=== PATIENT | male | born 1945 | race Caucasian/White ===

== ENCOUNTER 2017-12-06 22:31 | Emergency (ER) | payer MEDICAID, MEDICARE ==
[2016-04-21 13:01] VITALS: Ht 170.2 cm; Wt 99.8 kg
[~2017-12-06] VITALS: Ht 170.2 cm; Wt 99.8 kg
--- NOTE | 2017-12-06 22:36 | ER Report ---
History and Physical Time Seen By MD: 22:36 HPI/ROS CHIEF COMPLAINT: Chest pain, headache HISTORY OF PRESENT ILLNESS: This is a 72-year-old male. He came to the ER tonight by ambulance having chest pain. Sudden onset about 2 hours prior to arrival. Sharp on the right side worse with deep breaths. He has a mild cough but always does and this does not seem worse and is not productive. He has no runny nose or sore throat. He does have a headache as well. Headache onset was about the same time as the chest pain. EMS did provide aspirin and nitroglycerin which did not help the chest pain but it did not make the headache worse. He is currently rating the chest pain an 8 on a 1-10 scale. He is not short of breath with it. He rates the headache a 10 on a 1-10 scale. Throbbing quality. No fevers or chills with all of this. Denies any problems with nausea, vomiting, bowel or bladder problems, diarrhea. He is not dizzy. He has normal vision. Allergies: Coded Allergies: naproxen (Verified Allergy, Severe, CHEST PAIN, RASH, 12/06/17) Penicillins (Verified Allergy, Mild, ITCHING, 12/06/17) Home Meds Active Scripts Hydrocodone Bit/Acetaminophen (HYDROCODON-ACETAMINOPHEN 5-325) 1 Each Tablet, 1 EACH PO Q4H Y for PAIN, #12 TAB 0 Refills Prov:JAMEY VILLASENOR MD 12/07/17 Methylprednisolone (METHYLPREDNISOLONE) 4 Mg Tab.ds.pk, 4 MG PO DIRECTED, #1 PACK 0 Refills Prov:JAMEY VILLASENOR MD 12/07/17 Simethicone (SIMETHICONE) 80 Mg Tab.chew, 80 MG PO QID for 7 Days, #28 TAB.CHEW Prov:FREDDY GATICA MD 05/21/17 Reported Medications Acetaminophen (TYLENOL EXTRA STRENGTH) 500 Mg Tablet, 1 TAB PO TID Y for PAIN, TAB 04/10/17 Lisinopril (LISINOPRIL) 2.5 Mg Tablet, 1 TAB PO QDAY 04/10/17 Insulin Detemir (Levemir Flextouch) 100 Unit/1 Ml Insuln.pen, 54 UNITS SUBQ BID 04/10/17 Cholecalciferol (Vitamin D3) (VITAMIN D) 10,000 Unit Capsule, 1 CAP PO DAILY, CAPSULE 04/10/17 Potassium Chloride (POTASSIUM CHLORIDE) 10 Meq Capsule.er, 1 CAP PO DAILY Y for DIARRHEA 04/10/17 Ferrous Sulfate, Dried (IRON) Unknown Strength Tablet.er, 65 MG PO BID 04/10/17 [place]-3 Fatty Acids/Fish Oil (FISH OIL 1,000 MG SOFTGEL) 1 Each Capsule, 1 EACH PO BID, CAPSULE 04/10/17 [place], Insulin Disposable (Bd Ultra-Fine Pen Needle) 1 Each Dis.needle, EACH 5XD, #100 04/10/17 Albuterol Sulfate 0.083% (ALBUTEROL SULFATE 0.083%) 2.5 Mg/3 Ml Vial.neb, 2.5 MG INH Q8H Y for WHEEZING, INH 04/10/17 Multivitamin (MEN'S MULTI-VITAMIN) 1 Each Tablet, 1 EACH PO DAILY 04/10/17 Allopurinol (ZYLOPRIM) 300 Mg Tablet, 1 TAB PO QDAY, TAB 04/10/17 Insulin Lispro (Humalog Kwikpen) 200 Unit/1 Ml Insuln.pen, 20 UNIT SQ TIDAC, #6 02/28/16 Albuterol Sulfate (Proventil Hfa) 6.7 Gm Aer.w.adap, 2 PUFF INH Q4H Y for WHEEZING, 0 Refills 09/07/11 Discontinued Reported Medications Clotrimazole/Betamethasone Dip (LOTRISONE CREAM) 15 Gm Cream..g., 0.5 TP BID 0.5% apply bid topically to feet 04/10/17 Atorvastatin Calcium (LIPITOR) 10 Mg Tablet, 1 TAB PO QDAY, TAB 04/10/17 Nitroglycerin (NITROSTAT) 0.4 Mg Subl, 0.4 MG SL Q5MIN, #30 07/06/13 Discontinued Scripts Hydrocodone Bit/Acetaminophen (HYDROCODON-ACETAMINOPHEN 5-325) 1 Each Tablet, 1 EACH PO Q6H Y for PAIN, #15 TAB 0 Refills Prov:JAMEY VILLASENOR MD 08/23/17 Prednisone (PREDNISONE) 20 Mg Tablet, 60 MG PO QDAY, #15 TAB 0 Refills Prov:JAMEY VILLASENOR MD 08/23/17 Azithromycin (ZITHROMAX) 250 Mg Tablet, 0 PO QDAY, #6 TAB 0 Refills Take 2 tablets today, then 1 daily for 4 days. Prov:JAMEY VILLASENOR MD 08/23/17 Esomeprazole Magnesium (NEXIUM) 40 Mg Capsule.dr, 1 CAP PO QDAY, #30 CAP 5 Refills Prov:KIKI CORMIER MD 06/17/17 Oxycodone Hcl/Acetaminophen (PERCOCET 5-325 MG TABLET) 1 Each Tablet, 1 EACH PO Q4-6H Y for PAIN, #6 TAB Prov:DAVIS QUAN LEGAL CLERK 04/07/17 Reviewed Nurses Notes: Yes Hx Smoking: No (1PPDX 30 YEARS- QUIT 2000) Smoking Status: Former Smoker Exposure to Second Hand Smoke?: No Hx Substance Use Disorder: No Hx Alcohol Use: No Constitutional Vital Sign - Last 24 Hours 12/06/17 12/06/17 12/06/17 12/06/17 22:37 22:38 22:46 23:00 Temp 98.6 Pulse 66 Resp 22 B/P (MAP) 171/77 (108) 171/77 139/68 (91) Pulse Ox 93 O2 Delivery Nasal Cannula O2 Flow Rate 3.0 12/06/17 12/06/17 12/06/17 12/06/17 23:01 23:14 23:15 23:45 Pulse 69 64 58 Resp 20 20 21 Pulse Ox 94 93 96 O2 Delivery Nasal Cannula O2 Flow Rate 3 12/07/17 12/07/17 12/07/17 12/07/17 00:00 00:15 00:30 00:45 Pulse 66 57 Resp 20 16 18 B/P (MAP) 126/62 (83) 133/69 (90) Pulse Ox 96 93 95 94 12/07/17 12/07/17 12/07/17 12/07/17 01:00 01:30 01:45 02:00 Pulse 65 67 67 Resp 17 18 17 19 B/P (MAP) 135/57 (83) 146/75 (98) 154/71 (98) Pulse Ox 94 100 98 97 12/07/17 12/07/17 02:15 02:33 Pulse 69 89 Resp 9 14 B/P (MAP) 153/70 (97) Pulse Ox 94 93 O2 Delivery Room Air Physical Exam General Appearance: The patient is alert. Acute distress because of the pain. Eyes: Pupils are equal, round. Reactive to light. No pallor, injection or icterus. Extraocular movements are intact. ENT: Mucous membranes are moist. Normal oral mucosa. Posterior oropharynx is normal. Normal tympanic membranes and canals. Neck: Supple and non tender. No lymphadenopathy. Respiratory: Breathing easily and unlabored. Lungs are clear to auscultation. Cardiovascular: Regular rate and rhythm. No murmurs, gallops or rubs. Normal capillary refill. Gastrointestinal: Abdomen is soft and non tender. Nondistended. Normal active bowel sounds. Neurological: Alert and oriented x3. Cranial nerves II through XII show no acute deficits on my exam. No focal neurologic deficits in the extremities. Skin: Warm and dry. No rashes. Musculoskeletal: Extremities are nontender. Full range of motion. No tenderness in palpation of the cervical, thoracic and lumbar spine. DIFFERENTIAL DIAGNOSIS: After history and physical exam, differential diagnosis was considered for chest pain including but not limited to myocardial ischemia, pericarditis pulmonary embolus, chest wall pain, pleural inflammation and pulmonary infectious causes. Also with headache Medical Decision Making Data Points Result Diagram: 12/06/17224212/06/173 Laboratory Hematology Test 12/06/17 22:43 Red Blood Count 4.74 M/uL (4.00-5.60) Mean Corpuscular Volume 90.6 fL (80.0-96.0) Mean Corpuscular Hemoglobin 30.5 pg (26.0-33.0) Mean Corpuscular Hemoglobin Concent 33.7 g/dL (32.0-36.0) Red Cell Distribution Width 14.0 % (11.5-14.5) Mean Platelet Volume 8.3 fL (7.2-11.1) Neutrophils (%) (Auto) 74.2 % (39.4-72.5) Lymphocytes (%) (Auto) 14.9 % (17.6-49.6) Monocytes (%) (Auto) 8.9 % (4.1-12.4) Eosinophils (%) (Auto) 1.3 % (0.4-6.7) Basophils (%) (Auto) 0.7 % (0.3-1.4) Nucleated RBC Relative Count (auto) 0.0 /100WBC Neutrophils # (Auto) 7.7 K/uL (2.0-7.4) Lymphocytes # (Auto) 1.5 K/uL (1.3-3.6) Monocytes # (Auto) 0.9 K/uL (0.3-1.0) Eosinophils # (Auto) 0.1 K/uL (0.0-0.5) Basophils # (Auto) 0.1 K/uL (0.0-0.1) Nucleated RBC Absolute Count (auto) 0.00 K/uL D-Dimer Quantitative (PE/DVT) < 0.27 ug/ml (0-0.50) Sodium Level 134 mmol/L (137-145) Potassium Level 3.7 mmol/L (3.5-5.0) Chloride Level 100 mmol/L (98-107) Carbon Dioxide Level 21 mmol/L (22-30) Blood Urea Nitrogen 18 mg/dl (9-21) Creatinine 0.80 mg/dl (0.66-1.25) Glomerular Filtration Rate Calc > 60.0 Random Glucose 261 mg/dl (75-110) Calcium Level 8.2 mg/dl (8.4-10.2) Total Bilirubin 0.3 mg/dl (0.2-1.3) Aspartate Amino Transf (AST/SGOT) 21 U/L (0-35) Alanine Aminotransferase (ALT/SGPT) 31 U/L (0-56) Alkaline Phosphatase 88 U/L (0-126) Troponin I < 0.012 ng/ml B-Type Natriuretic Peptide 35 pg/ml (0-100) Total Protein 6.6 gm/dl (6.3-8.2) Albumin 3.7 g/dl (3.5-5.0) Chemistry Test 12/06/17 22:43 White Blood Count 10.4 k/uL (4.5-11.0) Red Blood Count 4.74 M/uL (4.00-5.60) Hemoglobin 14.5 g/dL (14.0-18.0) Hematocrit 43.0 % (42.0-52.0) Mean Corpuscular Volume 90.6 fL (80.0-96.0) Mean Corpuscular Hemoglobin 30.5 pg (26.0-33.0) Mean Corpuscular Hemoglobin Concent 33.7 g/dL (32.0-36.0) Red Cell Distribution Width 14.0 % (11.5-14.5) Platelet Count 276 K/uL (150-450) Mean Platelet Volume 8.3 fL (7.2-11.1) Neutrophils (%) (Auto) 74.2 % (39.4-72.5) Lymphocytes (%) (Auto) 14.9 % (17.6-49.6) Monocytes (%) (Auto) 8.9 % (4.1-12.4) Eosinophils (%) (Auto) 1.3 % (0.4-6.7) Basophils (%) (Auto) 0.7 % (0.3-1.4) Nucleated RBC Relative Count (auto) 0.0 /100WBC Neutrophils # (Auto) 7.7 K/uL (2.0-7.4) Lymphocytes # (Auto) 1.5 K/uL (1.3-3.6) Monocytes # (Auto) 0.9 K/uL (0.3-1.0) Eosinophils # (Auto) 0.1 K/uL (0.0-0.5) Basophils # (Auto) 0.1 K/uL (0.0-0.1) Nucleated RBC Absolute Count (auto) 0.00 K/uL D-Dimer Quantitative (PE/DVT) < 0.27 ug/ml (0-0.50) Glomerular Filtration Rate Calc > 60.0 Calcium Level 8.2 mg/dl (8.4-10.2) Total Bilirubin 0.3 mg/dl (0.2-1.3) Aspartate Amino Transf (AST/SGOT) 21 U/L (0-35) Alanine Aminotransferase (ALT/SGPT) 31 U/L (0-56) Alkaline Phosphatase 88 U/L (0-126) Troponin I < 0.012 ng/ml B-Type Natriuretic Peptide 35 pg/ml (0-100) Total Protein 6.6 gm/dl (6.3-8.2) Albumin 3.7 g/dl (3.5-5.0) Coagulation Test 12/06/17 22:43 D-Dimer Quantitative (PE/DVT) < 0.27 ug/ml EKG/Imaging EKG Interpretation 12 lead EKG: Rhythm: normal sinus rhythm, rate 76 [place]: normal QRS: normal ST segments: No ST elevation or depression noted, nonspecific T-wave flattening Imaging CHEST PA AND LAT HISTORY: Chest pain. COMPARISON: 09/02/2017 and studies dating to 01/13/2008. TECHNIQUE: PA and lateral views of the chest. FINDINGS: Pulmonary: Lungs are clear. There is no pneumothorax or pleural effusion. 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 Cardiomediastinal: Cardiac and mediastinal silhouettes are within normal limits. There is mild to moderate aortic calcification. Bones/soft tissues: No acute osseous abnormality. There are several healed left- sided rib fractures. There is moderate degenerative change of the spine. There is stable wedging of several mid to lower thoracic vertebral bodies. The visible abdomen is normal. IMPRESSION: 1. No acute cardiopulmonary process. Report Dictated By: Leola Donnelly at 12/06/2017 11:48 PM ED Course/Re-evaluation Clinical Indication for ER IV: Hydration, IV Access ED Course Negative EKG and chest x-ray. Troponin negative. The patient still had headache but his chest pain was gone after morphine and Zofran. Gave Phenergan, Solu- Medrol, and 500 cc of fluid. Metabolic panel did show a slight increased BUN to creatinine ratio but we wanted to be careful because of history of heart disease and congestive heart failure. He felt much better with the medicine and his headache is down to a 4 on a 1-10 scale rather than 10. He is feeling much better and was discharged home. Decision to Disposition Date: Dec 07, 2017 Decision to Disposition Time: 02:24 Depart Departure Latest Vital Signs Vital Signs Date Time Temp Pulse Resp B/P (MAP) Pulse Ox O2 Delivery O2 Flow Rate FiO2 12/07/17 02:33 89 14 153/70 (97) 93 Room Air 12/06/17 23:14 3 12/06/17 22:38 98.6 Impression: Primary Impression: Non-cardiac chest pain Additional Impression: Headache Condition: Improved Disposition: HOME OR SELF-CARE Referrals: JOSELUIS REYNOLDSP (PCP) New Scripts Hydrocodone Bit/Acetaminophen (HYDROCODON-ACETAMINOPHEN 5-325) 1 Each Tablet 1 EACH PO Q4H Y for PAIN, #12 TAB 0 Refills Prov: JAMEY VILLASENOR MD 12/07/17 Methylprednisolone (METHYLPREDNISOLONE) 4 Mg Tab.ds.pk 4 MG PO DIRECTED, #1 PACK 0 Refills Prov: JAMEY VILLASENOR MD 12/07/17 Patient Instructions: Acute Headache (ED), Chest Pain (ED) Additional Instructions: Rest and increase fluid intake. Medrol dosepack over the next 6 days. Lortab 5/325, one every 4 hours as needed for pain. Problem Qualifiers Additional Impression: Headache Headache type: unspecified Headache chronicity pattern: acute headache Intractability: not intractable Qualified Codes: R51 - Headache JAMEY VILLASENOR MD Dec 06, 2017 22:36
[2017-12-06] MEDS ORDERED: MORPHINE 4 MG/ML SDV IVP ONE (23:20)
[2017-12-06] MEDS ORDERED: ONDANSETRON 4 MG/2 ML VIAL IVP ONE (23:20)
[2017-12-06 23:32] LABS: PLATELET COUNT, AUTOMATED 276 K/uL (150-450)
--- NOTE | 2017-12-06 23:58 | RADIOLOGY IMAGING REPORT ---
FACILITY: [facility] - [place] PATIENT NAME: Nomi Whiting : 1945 MR: [id number] V: [id number] EXAM DATE: ORDERING PHYSICIAN: JAMEY VILLASENOR TECHNOLOGIST: Location: [facility] - [place] Patient: Nomi Whiting : 1945 Visit/Account:[id number] Date of Sevice: 12/06/2017 CHEST PA AND LAT HISTORY: Chest pain. COMPARISON: 09/02/2017 and studies dating to 01/13/2008. TECHNIQUE: PA and lateral views of the chest. FINDINGS: Pulmonary: Lungs are clear. There is no pneumothorax or pleural effusion. 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 Cardiomediastinal: Cardiac and mediastinal silhouettes are within normal limits. There is mild to mod erate aortic calcification. Bones/soft tissues: No acute osseous abnormality. There are several healed left-sided rib fractures. There is moderate degenerative change of the spine. There is stable wedging of several mid to lower t horacic vertebral bodies. The visible abdomen is normal. IMPRESSION: 1. No acute cardiopulmonary process. Report Dictated By: Leola Donnelly at 12/06/2017 11:48 PM Report E-Signed By: Leola Donnelly at 12/06/2017 11:53 PM [id number]
[2017-12-07] MEDS ORDERED: ACETAMINOPHEN 500 MG TAB PO ONE (00:15)
[2017-12-07] MEDS ORDERED: PROMETHAZINE 25 MG/ML 1 ML AMP IVP ONE (00:15)
[2017-12-07] MEDS ORDERED: methylPREDNIS SUCC 125 MG/2ML IVP ONE (00:15)
[2017-12-07] MEDS ORDERED: NS(*) 0.9% 500 ML BAG 500 ML IV ONE (00:20)
[2017-12-07] MEDS ORDERED: LOR5/325 PO (02:26)
[2017-12-07] MEDS ORDERED: METH4TAB66 PO (02:26)
[2017-12-07 02:33] VITALS: BP 153/70
--- NOTE | 2017-12-07 06:44 | EKG ---
FACILITY: [facility] - [place] PATIENT NAME: BRETT BRADLEY : [id number] MR: [id number] V: [id number] EXAM DATE: ORDERING PHYSICIAN: JAMEY VILLASENOR TECHNOLOGIST: Test Reason : Blood Pressure : / mmHG Vent. Rate : 076 BPM Atrial Rate : 076 BPM P-R Int : 172 ms QRS Dur : 072 ms QT Int : 404 ms P-R-T Axes : 038 062 049 degrees QTc Int : 454 ms Normal sinus rhythm Septal infarct , age undetermined Abnormal ECG Confirmed by CINDY TOBIN ([id number]) on 12/07/2017 6:49:51 AM Referred By: Confirmed By:CINDY TOBIN
== END 2017-12-07 02:38 | disposition home or self-care (01) ==
LOC: ER 22:36
DX: R07.89 Other chest pain (principal); R51 Headache; R94.31 Abnormal electrocardiogram [ECG] [EKG]; I50.9 Heart failure, unspecified
CPT/HCPCS: 36415; 71046; 83880; 84484; 85025; 85379; 93005; 96361; 96374; 96375; 99284; A9270; J2270; J2405; J2550; J2930; J7040; 82040; 82247; 82310; 82374; 82435; 82565; 82947; 84075; 84132; 84155; 84295; 84450; 84460; 84520

== ENCOUNTER → 2017-12-06 | Outpatient (CLI) | payer MEDICARE ==
[2016-04-21 13:01] VITALS: BMI 33.5
[~2017-12-06] MED LIST: ACET500T68 PO; ALB6.7R INH; ALBL PO; ALBU2.5V36 INH; ALL100 PO; ALLO-1 PO; ALLO-119 PO; ALP5 PO; ALPR-434 PO; AMI25 PO; AMIT-106 PO; AMIT-108 PO; AMITRIPTYLINE; ASP325 PO; ASPI-715 PO; ATEN-1 PO; ATOR10TA24 PO; ATOR20TA22 PO; AUG875 PO; AZI250 PO; AZIT-1 PO; BACDS PO; BETA BLOCKER; BIS10S PR; BISA-236 RC; BUTA1CAP36 PO; CALC-488 PO; CEFU250 PO; CEP500 PO; CHOL100062 PO; CHOL400C10 PO; CIP500 PO; CIPR-212 PO; CLIN-1 PO; CLOT15CR62 TP; COL0.6 PO; CYA1000I IM; CYC10 PO; CYCL10TA29 PO; DIA5 PO; DIC10 PO; DICY10CA62 PO; DICY20TA70 PO; DIPH-1 PO; DOC100 PO; DOCU-416 PO; DUONEB; ENA10 PO; ESOM40CA42 PO; ESOM40SU2 PO; FENO48PT PO; FERR159T PO; FERR236T PO; FISH OIL1 CAP PO; GAB300 PO; GEMF600T91 PO; GLY25 PO; GOLYTE PO; HCTZ25 PO; HYDR-2966 PO; HYDR-3078 PO; HYDR-3250 PO; HYDR-385 PO; HYDR-4305 PO; HYDR-4309 PO; HYDR2TAB42 PO; HYDROCHLORO; HYDROCHLOROTHIAZIDE; HYO125 SL; INDO50CA92 PO; INSU100I34 SQ; INSU100I36 SQ; INSU100I5 SUBQ; INSU200I SQ; KET10 PO; LACT10SO58 PO; LEVI SUBQ; LISI-362 PO; LISI2.5T60 PO; LISI5TAB25 PO; LOM PO; LOR5 PO; LOR5/325 PO; LORA-633 PO; MAGN296S6 PO; MET10 PO; MET4 PO; META800T18 PO; METF-409 PO; METH-543 PO; METH4TAB66 PO; METO-1 PO; METO-566 PO; METR-1 PO; METXR500 PO; MON10 PO; MULT-1287 PO; MULT1CAP59 PO; NEBULIZER; NEED-653; NIA500 PO; NIT4 SL; NOVALOG SC; NOVOLOG SQ; NYST15CR32 TP; OLM20 PO; OLME1TAB54 PO; OMEG-11 PO; OMEG-23 PO; OMEG-27 PO; OMEG-36 PO; OMEP-153 PO; OMEP-218 PO; OMEP40CA45 PO; OND4 PO; ONDA4TAB PO; ONDA4TAB97 PO; OXYC-865 PO; OXYC-869 PO; OXYC-870 PO; OXYC1TAB54 PO; OXYG1EAC MC; OXYGEN INH; PAN40 PO; PER PO; POLY17PO25 PO; POTA10CA40 PO; PRE20 PO; PRED20TA6 PO; PROC-35 PO; PROM-110 PO; RAN150 PO; RANI150C14 PO; ROBC PO; SIME80TA65 PO; SIMV-1 PO; SIMV-44 PO; SITA100T9 PO; SUC1 PO; SUCR1TAB51 PO; SUMA50TA34 PO; TADA10TA14 PO; TADA20TA33 PO; TOPI-119 PO; TOPI25CA6 PO; TRA50 PO; TRAM-420 PO; VITA100C13 PO; [UNRECOGNIZED DRUG - OTHER]; dex60pt PO
== END ==
LOC: AMB 22:11
PROVIDERS: ATTEND Nurse Practitioner
DX: R07.89 Other chest pain (principal); R51 Headache; E11.9 Type 2 diabetes mellitus without complications; J44.9 Chronic obstructive pulmonary disease, unspecified; I50.9 Heart failure, unspecified
CPT/HCPCS: A0425; A0427

== ENCOUNTER 2018-01-06 09:15 | Emergency (ER) | payer MEDICARE ==
[2016-04-21 13:01] VITALS: Wt 99.9 kg
[~2018-01-06 09:15] MED LIST changes: -INSU100C14 SQ; -METO-734 PO
--- NOTE | 2018-01-06 09:52 | ER Report ---
History and Physical Time Seen By MD: 09:52 Hx. of Stated Complaint: patient reports getting up this am having a coughing fit and since then has been having a hard time breathing HPI/ROS Cough since this morning. No fever/chills. No chest pain. No SOB. No myalgias. Remainder of the 14 system rev: Yes Allergies: Coded Allergies: naproxen (Verified Allergy, Severe, CHEST PAIN, RASH, 01/06/18) Penicillins (Verified Allergy, Mild, ITCHING, 01/06/18) Home Meds Active Scripts Simethicone (SIMETHICONE) 80 Mg Tab.chew, 80 MG PO QID for 7 Days, #28 TAB.CHEW Prov:FREDDY GATICA MD 05/21/17 Reported Medications Acetaminophen (TYLENOL EXTRA STRENGTH) 500 Mg Tablet, 1 TAB PO TID Y for PAIN, TAB 04/10/17 Lisinopril (LISINOPRIL) 2.5 Mg Tablet, 1 TAB PO QDAY 04/10/17 Insulin Detemir (Levemir Flextouch) 100 Unit/1 Ml Insuln.pen, 54 UNITS SUBQ BID 04/10/17 Cholecalciferol (Vitamin D3) (VITAMIN D) 10,000 Unit Capsule, 1 CAP PO DAILY, CAPSULE 04/10/17 Potassium Chloride (POTASSIUM CHLORIDE) 10 Meq Capsule.er, 1 CAP PO DAILY Y for DIARRHEA 04/10/17 Ferrous Sulfate, Dried (IRON) Unknown Strength Tablet.er, 65 MG PO BID 04/10/17 [place]-3 Fatty Acids/Fish Oil (FISH OIL 1,000 MG SOFTGEL) 1 Each Capsule, 1 EACH PO BID, CAPSULE 04/10/17 [place], Insulin Disposable (Bd Ultra-Fine Pen Needle) 1 Each Dis.needle, EACH 5XD, #100 04/10/17 Albuterol Sulfate 0.083% (ALBUTEROL SULFATE 0.083%) 2.5 Mg/3 Ml Vial.neb, 2.5 MG INH Q8H Y for WHEEZING, INH 04/10/17 Multivitamin (MEN'S MULTI-VITAMIN) 1 Each Tablet, 1 EACH PO DAILY 04/10/17 Allopurinol (ZYLOPRIM) 300 Mg Tablet, 1 TAB PO QDAY, TAB 04/10/17 Insulin Lispro (Humalog Kwikpen) 200 Unit/1 Ml Insuln.pen, 20 UNIT SQ TIDAC, #6 02/28/16 Albuterol Sulfate (Proventil Hfa) 6.7 Gm Aer.w.adap, 2 PUFF INH Q4H Y for WHEEZING, 0 Refills 09/07/11 Discontinued Scripts Hydrocodone Bit/Acetaminophen (HYDROCODON-ACETAMINOPHEN 5-325) 1 Each Tablet, 1 EACH PO Q4H Y for PAIN, #12 TAB 0 Refills Prov:JAMEY VILLASENOR MD 12/07/17 Methylprednisolone (METHYLPREDNISOLONE) 4 Mg Tab.ds.pk, 4 MG PO DIRECTED, #1 PACK 0 Refills Prov:JAMEY VILLASENOR MD 12/07/17 Reviewed Nurses Notes: Yes Old Medical Records Reviewed: Yes Hx Smoking: No (1PPDX 30 YEARS- QUIT 2000) Smoking Status: Former Smoker Exposure to Second Hand Smoke?: No Hx Substance Use Disorder: No Hx Alcohol Use: No Constitutional Vital Sign - Last 24 Hours 01/06/18 01/06/18 01/06/18 01/06/18 09:17 09:19 09:45 10:00 Temp 98.2 Pulse 78 76 Resp 16 B/P (MAP) 157/89 (111) 157/89 160/89 (112) Pulse Ox 92 90 O2 Delivery Room Air 01/06/18 01/06/18 01/06/18 01/06/18 10:04 10:04 10:05 10:09 Pulse 76 76 86 Resp 22 20 Pulse Ox 90 90 O2 Delivery Room Air 01/06/18 01/06/18 01/06/18 01/06/18 10:20 10:30 10:35 11:00 Pulse 72 Resp 20 B/P (MAP) 157/65 (95) 159/70 (99) Pulse Ox 92 O2 Flow Rate 2.0 01/06/18 01/06/18 11:30 12:00 B/P (MAP) 160/75 (103) 167/77 (107) Physical Exam General Appearance: The patient is alert, has no immediate need for airway protection and no current signs of toxicity. Eyes: Pupils equal and round no injection. Respiratory: Chest is non tender, lungs are clear to auscultation. Cardiac: regular rate and rhythm Gastrointestinal: Abdomen is soft and non tender, no masses, bowel sounds normal. Extremities have full range of motion and are non tender. Skin: No rashes or lesions. DIFFERENTIAL DIAGNOSIS: After history and physical exam differential diagnosis was considered for shortness of breath including but not limited to pulmonary infectious process, COPD, asthma, pulmonary embolus and congestive heart failure. Medical Decision Making Data Points Result Diagram: 01/06/18 0930 01/06/18 0930 Laboratory Hematology Test 01/06/18 09:30 Red Blood Count 5.02 M/uL (4.00-5.60) Mean Corpuscular Volume 88.9 fL (80.0-96.0) Mean Corpuscular Hemoglobin 30.4 pg (26.0-33.0) Mean Corpuscular Hemoglobin Concent 34.1 g/dL (32.0-36.0) Red Cell Distribution Width 14.3 % (11.5-14.5) Mean Platelet Volume 7.9 fL (7.2-11.1) Neutrophils (%) (Auto) 70.8 % (39.4-72.5) Lymphocytes (%) (Auto) 15.0 % (17.6-49.6) Monocytes (%) (Auto) 12.1 % (4.1-12.4) Eosinophils (%) (Auto) 1.5 % (0.4-6.7) Basophils (%) (Auto) 0.6 % (0.3-1.4) Nucleated RBC Relative Count (auto) 0.1 /100WBC Neutrophils # (Auto) 6.1 K/uL (2.0-7.4) Lymphocytes # (Auto) 1.3 K/uL (1.3-3.6) Monocytes # (Auto) 1.0 K/uL (0.3-1.0) Eosinophils # (Auto) 0.1 K/uL (0.0-0.5) Basophils # (Auto) 0.1 K/uL (0.0-0.1) Nucleated RBC Absolute Count (auto) 0.01 K/uL Sodium Level 138 mmol/L (137-145) Potassium Level 4.0 mmol/L (3.5-5.0) Chloride Level 101 mmol/L (98-107) Carbon Dioxide Level 24 mmol/L (22-30) Blood Urea Nitrogen 11 mg/dl (9-21) Creatinine 0.90 mg/dl (0.66-1.25) Glomerular Filtration Rate Calc > 60.0 Random Glucose 101 mg/dl (75-110) Calcium Level 8.7 mg/dl (8.4-10.2) Total Bilirubin 0.4 mg/dl (0.2-1.3) Aspartate Amino Transf (AST/SGOT) 21 U/L (0-35) Alanine Aminotransferase (ALT/SGPT) 31 U/L (0-56) Alkaline Phosphatase 84 U/L (0-126) Total Protein 7.0 gm/dl (6.3-8.2) Albumin 3.9 g/dl (3.5-5.0) Chemistry Test 01/06/18 09:30 White Blood Count 8.6 k/uL (4.5-11.0) Red Blood Count 5.02 M/uL (4.00-5.60) Hemoglobin 15.2 g/dL (14.0-18.0) Hematocrit 44.6 % (42.0-52.0) Mean Corpuscular Volume 88.9 fL (80.0-96.0) Mean Corpuscular Hemoglobin 30.4 pg (26.0-33.0) Mean Corpuscular Hemoglobin Concent 34.1 g/dL (32.0-36.0) Red Cell Distribution Width 14.3 % (11.5-14.5) Platelet Count 279 K/uL (150-450) Mean Platelet Volume 7.9 fL (7.2-11.1) Neutrophils (%) (Auto) 70.8 % (39.4-72.5) Lymphocytes (%) (Auto) 15.0 % (17.6-49.6) Monocytes (%) (Auto) 12.1 % (4.1-12.4) Eosinophils (%) (Auto) 1.5 % (0.4-6.7) Basophils (%) (Auto) 0.6 % (0.3-1.4) Nucleated RBC Relative Count (auto) 0.1 /100WBC Neutrophils # (Auto) 6.1 K/uL (2.0-7.4) Lymphocytes # (Auto) 1.3 K/uL (1.3-3.6) Monocytes # (Auto) 1.0 K/uL (0.3-1.0) Eosinophils # (Auto) 0.1 K/uL (0.0-0.5) Basophils # (Auto) 0.1 K/uL (0.0-0.1) Nucleated RBC Absolute Count (auto) 0.01 K/uL Glomerular Filtration Rate Calc > 60.0 Calcium Level 8.7 mg/dl (8.4-10.2) Total Bilirubin 0.4 mg/dl (0.2-1.3) Aspartate Amino Transf (AST/SGOT) 21 U/L (0-35) Alanine Aminotransferase (ALT/SGPT) 31 U/L (0-56) Alkaline Phosphatase 84 U/L (0-126) Total Protein 7.0 gm/dl (6.3-8.2) Albumin 3.9 g/dl (3.5-5.0) EKG/Imaging Imaging X-ray: CXR was obtained. I viewed the images myself on the PACS system. My interpretation of the images is: No pulmonary edema, no infiltrates. The radiologist interpretation had no clinically significant variation from this interpretation. ED Course/Re-evaluation ED Course 72-year-old male presents to the emergency department with hours of a cough. No fever or chills, no chest pain, no tachypnea. Labs and chest x-ray are both within normal limits. The patient appears well. I do not think this represents pneumonia, ACS, PE, CHF. He was given a nebulizer treatment with improvement of his cough. He was also given one dose of Mucinex which I encouraged him to continue. The patient has no wheezing and will therefore not be placed on a course of steroids. I think he has an early viral upper respiratory infection and was encouraged to follow up with his primary care physician. Decision to Disposition Date: Jan 06, 2018 Decision to Disposition Time: 12:50 Depart Departure Latest Vital Signs Vital Signs Date Time Temp Pulse Resp B/P (MAP) Pulse Ox O2 Delivery O2 Flow Rate FiO2 01/06/18 12:00 167/77 (107) 01/06/18 10:35 72 20 92 01/06/18 10:20 2.0 01/06/18 10:04 Room Air 01/06/18 09:19 98.2 Impression: Primary Impression: Cough Condition: Improved Disposition: HOME OR SELF-CARE Referrals: JOSELUIS REYNOLDS (PCP) Patient Instructions: Acute Cough (ED) CHELSEY ROMERO MD Jan 06, 2018 09:52
[2018-01-06] MEDS ORDERED: ALBUTEROL/IPRATROPIUM 3 ML NEB NEB ONE (09:55)
[2018-01-06 10:04] LABS: PLATELET COUNT, AUTOMATED 279 K/uL (150-450)
--- NOTE | 2018-01-06 10:36 | RADIOLOGY IMAGING REPORT ---
FACILITY: [facility] - [place] PATIENT NAME: Nomi Whiting : 1945 MR: [id number] V: [id number] EXAM DATE: ORDERING PHYSICIAN: CHELSEY ROMERO TECHNOLOGIST: Location: [facility] - [place] Patient: Nomi Whiting : 1945 Visit/Account:[id number] Date of Sevice: 01/06/2018 Technique: CHEST PA AND LAT HISTORY: cough and sob COMPARISON: Chest radiographs 12/06/2016 Findings: The lungs are clear. No pleural effusion or pneumothorax. The cardiomediastinal silhouett e is unchanged. Impression: 1. No acute cardiopulmonary process. Report Dictated By: Jackson Wagner DO at 01/06/2018 10:30 AM Report E-Signed By: Jackson Wagner DO at 01/06/2018 10:31 AM WSN:[id number]
[2018-01-06 12:00] VITALS: BP 167/77
[2018-01-06] MEDS ORDERED: guaiFENesin 600 MG TABCR PO ONE (12:15)
== END 2018-01-06 12:32 | disposition home or self-care (01) ==
LOC: ER 09:24
DX: R05 Cough (principal)
CPT/HCPCS: 71046; 85025; 94640; 99284; A9270; J7620; 82040; 82247; 82310; 82374; 82435; 82565; 82947; 84075; 84132; 84155; 84295; 84450; 84460; 84520

== ENCOUNTER → 2018-01-06 | Outpatient (CLI) | payer MEDICARE ==
[2016-04-21 13:01] VITALS: BMI 33.5
[~2018-01-06] MED LIST changes: +INSU100C14 SQ; +METO-734 PO
== END ==
LOC: AMB 08:53
PROVIDERS: ATTEND Nurse Practitioner
DX: R06.02 Shortness of breath (principal); R05 Cough
CPT/HCPCS: A0425; A0427

== ENCOUNTER 2018-01-09 10:40 | Emergency (ER) | payer MEDICARE ==
[2016-04-21 13:01] VITALS: Wt 99.9 kg
[~2018-01-09 10:40] MED LIST changes: -INSU100C14 SQ; -METO-734 PO
--- NOTE | 2018-01-09 10:45 | ER Report ---
History and Physical Time Seen By MD: 10:44 HPI/ROS CHIEF COMPLAINT: Right flank pain HISTORY OF PRESENT ILLNESS: Patient was just seen on 01/06/2018 for cough that was felt to be due to bronchospasm. At that time he had a workup which included a chest x-ray and blood work all of which was normal. He is been seen multiple times in the emergency department for acute abdominal pain. Workups have been unremarkable. He was supposed to follow up with gastroenterology in April 2017 but he was unable to make that appointment. Patient presents today with right- sided flank pain which occurred at rest. Pain is described as 8 out of 10 in intensity and associated with nausea. Patient does state that the pain is worse with movement or pushing over the area. He denies fevers or chills. He denies vomiting or diarrhea. He denies any abdominal pain. Denies chest pain or shortness of breath. He denies hematuria. He denies dysuria. REVIEW OF SYSTEMS: Constitutional: No fever, no chills. Eyes: No discharge. ENT: No sore throat. Cardiovascular: No chest pain, no palpitations. Respiratory: No cough, no shortness of breath. Gastrointestinal: No abdominal pain, no vomiting. Patient reports nausea and right flank pain Genitourinary: No hematuria. Musculoskeletal: No back pain. Skin: No rashes. Neurological: No headache. Allergies: Coded Allergies: naproxen (Verified Allergy, Severe, CHEST PAIN, RASH, 01/09/18) Penicillins (Verified Allergy, Mild, ITCHING, 01/09/18) Home Meds Active Scripts Methocarbamol (ROBAXIN-750) 750 Mg Tablet, 1500 MG PO TID for Muscle Relaxant, # 15 TAB 0 Refills Prov:FREDDY GATICA MD 01/09/18 Hydrocodone Bit/Acetaminophen (HYDROCODON-ACETAMINOPHEN 5-325) 1 Each Tablet, 1 EACH PO Q4-6H Y for PAIN, #12 TAB 0 Refills TAKE ONE TABLET BY MOUTH EVERY 4-6 HOURS NEEDED FOR PAIN Prov:FREDDY GATICA MD 01/09/18 Simethicone (SIMETHICONE) 80 Mg Tab.chew, 80 MG PO QID for 7 Days, #28 TAB.CHEW Prov:FREDDY GATICA MD 05/21/17 Reported Medications Acetaminophen (TYLENOL EXTRA STRENGTH) 500 Mg Tablet, 1 TAB PO TID Y for PAIN, TAB 04/10/17 Lisinopril (LISINOPRIL) 2.5 Mg Tablet, 1 TAB PO QDAY 04/10/17 Insulin Detemir (Levemir Flextouch) 100 Unit/1 Ml Insuln.pen, 54 UNITS SUBQ BID 04/10/17 Cholecalciferol (Vitamin D3) (VITAMIN D) 10,000 Unit Capsule, 1 CAP PO DAILY, CAPSULE 04/10/17 Potassium Chloride (POTASSIUM CHLORIDE) 10 Meq Capsule.er, 1 CAP PO DAILY Y for DIARRHEA 04/10/17 Ferrous Sulfate, Dried (IRON) Unknown Strength Tablet.er, 65 MG PO BID 04/10/17 [place]-3 Fatty Acids/Fish Oil (FISH OIL 1,000 MG SOFTGEL) 1 Each Capsule, 1 EACH PO BID, CAPSULE 04/10/17 Avella, Insulin Disposable (Bd Ultra-Fine Pen Needle) 1 Each Dis.needle, EACH 5XD, #100 04/10/17 Albuterol Sulfate 0.083% (ALBUTEROL SULFATE 0.083%) 2.5 Mg/3 Ml Vial.neb, 2.5 MG INH Q8H Y for WHEEZING, INH 04/10/17 Multivitamin (MEN'S MULTI-VITAMIN) 1 Each Tablet, 1 EACH PO DAILY 04/10/17 Allopurinol (ZYLOPRIM) 300 Mg Tablet, 1 TAB PO QDAY, TAB 04/10/17 Insulin Lispro (Humalog Kwikpen) 200 Unit/1 Ml Insuln.pen, 20 UNIT SQ TIDAC, #6 02/28/16 Albuterol Sulfate (Proventil Hfa) 6.7 Gm Aer.w.adap, 2 PUFF INH Q4H Y for WHEEZING, 0 Refills 09/07/11 Discontinued Scripts Hydrocodone Bit/Acetaminophen (HYDROCODON-ACETAMINOPHEN 5-325) 1 Each Tablet, 1 EACH PO Q4H Y for PAIN, #12 TAB 0 Refills Prov:JAMEY VILLASENOR MD 12/07/17 Methylprednisolone (METHYLPREDNISOLONE) 4 Mg Tab.ds.pk, 4 MG PO DIRECTED, #1 PACK 0 Refills Prov:JAMEY VILLASENOR MD 12/07/17 Past Medical/Surgical History Past medical history significant for asthma, insulin requiring diabetes, gout, hypertension, abdominal pain Hx Smoking: No (1PPDX 30 YEARS- QUIT 2000) Smoking Status: Former Smoker Exposure to Second Hand Smoke?: No Hx Substance Use Disorder: No Hx Alcohol Use: No Constitutional Vital Sign - Last 24 Hours 01/09/18 01/09/18 01/09/18 01/09/18 10:40 10:46 10:48 10:55 Temp 98.4 Pulse ??? 105 99 Resp 20 B/P (MAP) 183/91 183/91 (121) Pulse Ox 90 90 O2 Delivery Room Air 01/09/18 01/09/18 01/09/18 01/09/18 11:00 11:10 11:15 11:20 Pulse 96 89 B/P (MAP) 145/119 (128) 150/90 (110) Pulse Ox 92 92 01/09/18 01/09/18 01/09/18 11:30 11:35 11:45 Pulse ??? B/P (MAP) 147/68 (94) 153/68 (96) Physical Exam General Appearance: The patient is alert, has no immediate need for airway protection and no signs of toxicity. [ ] Eyes: Pupils equal and round no pallor or injection. ENT, Mouth: Mucous membranes are moist. Respiratory: There are no retractions, lungs are clear to auscultation. Cardiovascular: Regular rate and rhythm. [ ] Gastrointestinal: Right flank pain; no abdominal pain Neurological: Awake and alert Skin: Warm and dry, no rashes. Musculoskeletal: Neck is supple non tender. Extremities are nontender, nonswollen and have full range of motion. Medical Decision Making Data Points Result Diagram: 01/09/18 1116 01/09/18 1116 Laboratory Hematology Test 01/09/18 10:44 01/09/18 11:16 Urine Color Straw Urine Clarity Clear Urine pH 5.0 pH (4.8-9.5) Urine Specific [place] 1.005 Urine Protein Negative mg/dL (NEGATIVE) Urine Glucose (UA) 500 mg/dL (NEGATIVE) Urine Ketones Negative mg/dL (NEGATIVE) Urine Blood Small (NEGATIVE) Urine Nitrite Negative (NEGATIVE) Urine Bilirubin Negative (NEGATIVE) Urine Urobilinogen Negative mg/dL (0.2-1.9) Urine Leukocyte Esterase Negative (NEGATIVE) Urine RBC <1 /HPF (0-2/HPF) Urine WBC <1 /HPF (0-5/HPF) Urine Squamous Epithelial Cells Few /LPF (</=FEW) Urine Bacteria Negative /HPF (NONE-FEW) Urine Mucus None /HPF (NONE-FEW) Red Blood Count 4.96 M/uL (4.00-5.60) Mean Corpuscular Volume 88.8 fL (80.0-96.0) Mean Corpuscular Hemoglobin 30.6 pg (26.0-33.0) Mean Corpuscular Hemoglobin Concent 34.4 g/dL (32.0-36.0) Red Cell Distribution Width 14.5 % (11.5-14.5) Mean Platelet Volume 8.0 fL (7.2-11.1) Neutrophils (%) (Auto) 73.8 % (39.4-72.5) Lymphocytes (%) (Auto) 13.8 % (17.6-49.6) Monocytes (%) (Auto) 10.4 % (4.1-12.4) Eosinophils (%) (Auto) 1.3 % (0.4-6.7) Basophils (%) (Auto) 0.7 % (0.3-1.4) Nucleated RBC Relative Count (auto) 0.0 /100WBC Neutrophils # (Auto) 7.3 K/uL (2.0-7.4) Lymphocytes # (Auto) 1.4 K/uL (1.3-3.6) Monocytes # (Auto) 1.0 K/uL (0.3-1.0) Eosinophils # (Auto) 0.1 K/uL (0.0-0.5) Basophils # (Auto) 0.1 K/uL (0.0-0.1) Nucleated RBC Absolute Count (auto) 0.00 K/uL Peripheral Blood Smear No Y/N Sodium Level 137 mmol/L (137-145) Potassium Level 3.9 mmol/L (3.5-5.0) Chloride Level 101 mmol/L (98-107) Carbon Dioxide Level 19 mmol/L (22-30) Blood Urea Nitrogen 16 mg/dl (9-21) Creatinine 0.80 mg/dl (0.66-1.25) Glomerular Filtration Rate Calc > 60.0 Random Glucose 229 mg/dl (75-110) Calcium Level 8.4 mg/dl (8.4-10.2) Total Bilirubin 0.4 mg/dl (0.2-1.3) Aspartate Amino Transf (AST/SGOT) 18 U/L (0-35) Alanine Aminotransferase (ALT/SGPT) 31 U/L (0-56) Alkaline Phosphatase 121 U/L (0-126) Total Protein 6.9 gm/dl (6.3-8.2) Albumin 3.9 g/dl (3.5-5.0) Amylase Level 103 U/L (0-110) Lipase 82 U/L (23-300) Helicobacter pylori IgG Antibody Negative (NEGATIVE) Chemistry Test 01/09/18 10:44 01/09/18 11:16 Urine Color Straw Urine Clarity Clear Urine pH 5.0 pH (4.8-9.5) Urine Specific [place] 1.005 Urine Protein Negative mg/dL (NEGATIVE) Urine Glucose (UA) 500 mg/dL (NEGATIVE) Urine Ketones Negative mg/dL (NEGATIVE) Urine Blood Small (NEGATIVE) Urine Nitrite Negative (NEGATIVE) Urine Bilirubin Negative (NEGATIVE) Urine Urobilinogen Negative mg/dL (0.2-1.9) Urine Leukocyte Esterase Negative (NEGATIVE) Urine RBC <1 /HPF (0-2/HPF) Urine WBC <1 /HPF (0-5/HPF) Urine Squamous Epithelial Cells Few /LPF (</=FEW) Urine Bacteria Negative /HPF (NONE-FEW) Urine Mucus None /HPF (NONE-FEW) White Blood Count 9.9 k/uL (4.5-11.0) Red Blood Count 4.96 M/uL (4.00-5.60) Hemoglobin 15.2 g/dL (14.0-18.0) Hematocrit 44.1 % (42.0-52.0) Mean Corpuscular Volume 88.8 fL (80.0-96.0) Mean Corpuscular Hemoglobin 30.6 pg (26.0-33.0) Mean Corpuscular Hemoglobin Concent 34.4 g/dL (32.0-36.0) Red Cell Distribution Width 14.5 % (11.5-14.5) Platelet Count 274 K/uL (150-450) Mean Platelet Volume 8.0 fL (7.2-11.1) Neutrophils (%) (Auto) 73.8 % (39.4-72.5) Lymphocytes (%) (Auto) 13.8 % (17.6-49.6) Monocytes (%) (Auto) 10.4 % (4.1-12.4) Eosinophils (%) (Auto) 1.3 % (0.4-6.7) Basophils (%) (Auto) 0.7 % (0.3-1.4) Nucleated RBC Relative Count (auto) 0.0 /100WBC Neutrophils # (Auto) 7.3 K/uL (2.0-7.4) Lymphocytes # (Auto) 1.4 K/uL (1.3-3.6) Monocytes # (Auto) 1.0 K/uL (0.3-1.0) Eosinophils # (Auto) 0.1 K/uL (0.0-0.5) Basophils # (Auto) 0.1 K/uL (0.0-0.1) Nucleated RBC Absolute Count (auto) 0.00 K/uL Peripheral Blood Smear No Y/N Glomerular Filtration Rate Calc > 60.0 Calcium Level 8.4 mg/dl (8.4-10.2) Total Bilirubin 0.4 mg/dl (0.2-1.3) Aspartate Amino Transf (AST/SGOT) 18 U/L (0-35) Alanine Aminotransferase (ALT/SGPT) 31 U/L (0-56) Alkaline Phosphatase 121 U/L (0-126) Total Protein 6.9 gm/dl (6.3-8.2) Albumin 3.9 g/dl (3.5-5.0) Amylase Level 103 U/L (0-110) Lipase 82 U/L (23-300) Helicobacter pylori IgG Antibody Negative (NEGATIVE) Urinalysis Test 01/09/18 10:44 Urine Color Straw Urine Clarity Clear Urine pH 5.0 pH (4.8-9.5) Urine Specific [place] 1.005 Urine Protein Negative mg/dL (NEGATIVE) Urine Glucose (UA) 500 mg/dL (NEGATIVE) Urine Ketones Negative mg/dL (NEGATIVE) Urine Blood Small (NEGATIVE) Urine Nitrite Negative (NEGATIVE) Urine Bilirubin Negative (NEGATIVE) Urine Urobilinogen Negative mg/dL (0.2-1.9) Urine Leukocyte Esterase Negative (NEGATIVE) Urine RBC <1 /HPF (0-2/HPF) Urine WBC <1 /HPF (0-5/HPF) Urine Squamous Epithelial Cells Few /LPF (</=FEW) Urine Bacteria Negative /HPF (NONE-FEW) Urine Mucus None /HPF (NONE-FEW) EKG/Imaging Imaging FACILITY: [facility] PATIENT NAME: Nomi Whiting : 1945 MR: [id number] V: [id number] EXAM DATE: ORDERING PHYSICIAN: FREDDY GATICA TECHNOLOGIST: Location: [facility] Patient: Nomi Whiting : 1945 Visit/Account:[id number] Date of Sevice: 01/09/2018 CT abdomen and pelvis without IV contrast - Renal Stone Protocol History: Right flank pain COMPARISON STUDIES: CT abdomen and pelvis 04/16/2017, 12/13/2016. TECHNIQUE: Axial CT images were obtained through the kidneys, ureters, and bladder without IV contrast. Reformatted coronal and sagittal images were also obtained. One of the following dose optimization techniques was utilized in the performance of this exam: Automated exposure control; adjustment of the mA and/ or kV according to the patient's size; or use of an iterative reconstruction technique. Specific details can be referenced in the facility's radiology CT exam operational policy. FINDINGS: CT Abdomen and Pelvis- Chest bases: Coronary artery calcifications are noted. Liver: Liver is large with right and left lobes measuring 18 and 8 cm length. The liver is diffusely fatty. Spleen: size is normal. Gallbladder and bile ducts: Cholecystectomy. Normal sized bile ducts. Pancreas: negative Adrenal glands: Low density adrenal mass, 17 mm, is unchanged. Right kidney and ureter: There are no renal stones or hydronephrosis. Left kidney and ureter: There are no renal stones or hydronephrosis. Moderate renal vascular calcifications. Several left renal cysts have not significantly changed, the largest in the anterior mid pole measuring 4.4 cm. Pelvic structures: Mild prostate gland enlargement. There are no bladder stones. Bowel and mesenteries: Celso-en-Y gastroplasty surgical changes. There is herniation of the gastric pouch through a hiatal hernia, unchanged. Ascites: None Vessels: Femoral-femoral arterial graft is noted. There is thick circumferential calcification of the infrarenal abdominal aorta and advanced calcification of the iliac arteries. There is a stent positioned within the right proximal common iliac artery. 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 Musculoskeletal: Mild degenerative disc changes in the lower thoracic spine. Body wall: Previous ventral herniorrhaphy with mesh. Abd/Pelvis lymph node assessment: negative IMPRESSION: 1. Negative CT for urinary stones and renal collecting system obstruction. 2. 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 There is a femoral- femoral arterial bypass graft. 3. Mild hepatomegaly and hepatic steatosis. 4. Coronary artery calcifications. 5. Left adrenal nodule has not significantly changed from at least 12/13/2016, and is likely an adenoma Report Dictated By: Estelle Badillo MD at 01/09/2018 12:18 PM Report E-Signed By: Estelle Badillo MD at 01/09/2018 12:32 PM WSN:[email or web address] ED Course/Re-evaluation Clinical Indication for ER IV: IV Access ED Course 01/09/2018 11:58:32 am bedside ultrasound showed no evidence of hydronephrosis to the right kidney, however patient does have small blood on urine dipstick and symptoms do sound very much like renal colic. Plan will be to obtain a noncontrast enhanced CT of the abdomen and pelvis. We will treat the patient's pain and nausea. We'll check blood work for CBC CMP and lipase. Re-evaluation 01/09/2018 12:23:59 pm patient is sleeping comfortably at this time Decision to Disposition Date: Jan 09, 2018 Decision to Disposition Time: 12:48 Depart Departure Latest Vital Signs Vital Signs Date Time Temp Pulse Resp B/P (MAP) Pulse Ox O2 Delivery O2 Flow Rate FiO2 01/09/18 11:45 153/68 (96) 01/09/18 11:35 ??? 01/09/18 11:20 92 01/09/18 10:46 98.4 20 Room Air Impression: Primary Impression: Flank pain Condition: Improved Disposition: HOME OR SELF-CARE Referrals: JOSELUIS REYNOLDS (PCP) 2 Days If symptoms worsen or persist New Scripts Methocarbamol (ROBAXIN-750) 750 Mg Tablet 1500 MG PO TID for Muscle Relaxant, #15 TAB 0 Refills Prov: FREDDY GATICA MD 01/09/18 Hydrocodone Bit/Acetaminophen (HYDROCODON-ACETAMINOPHEN 5-325) 1 Each Tablet 1 EACH PO Q4-6H Y for PAIN, #12 TAB 0 Refills TAKE ONE TABLET BY MOUTH EVERY 4-6 HOURS NEEDED FOR PAIN Prov: FREDDY GATICA MD 01/09/18 Patient Instructions: Flank Pain (ED) FREDDY GATICA MD Jan 09, 2018 10:45
[2018-01-09] MEDS ORDERED: LR(*) 1000 ML BAG 1,000 ML IV ONE (10:52)
[2018-01-09] MEDS ORDERED: ONDANSETRON 4 MG/2 ML VIAL IVP ONE (11:05)
[2018-01-09] MEDS ORDERED: KETOROLAC 15 MG/ML VIAL IVP ONE (11:05)
[2018-01-09] MEDS ORDERED: LORazepam 2 MG/ML VIAL IVP ONE (11:30)
[2018-01-09] MEDS ORDERED: HYDROmorphone(ER ONLY) 1 MG/ML IVP ONE ×2 (11:30→12:25)
[2018-01-09 11:36] LABS: PLATELET COUNT, AUTOMATED 274 K/uL (150-450)
[2018-01-09] MEDS ORDERED: NS 0.9% ONE (11:36)
[2018-01-09] MEDS ORDERED: IOPAMIDOL 76% 75 ML INFUS BTL 0 ML ONE (11:36)
--- NOTE | 2018-01-09 12:38 | RADIOLOGY IMAGING REPORT ---
FACILITY: [facility] PATIENT NAME: Nomi Whiting : 1945 MR: [id number] V: [id number] EXAM DATE: ORDERING PHYSICIAN: FREDDY GATICA TECHNOLOGIST: Location: [facility] Patient: Nomi Whiting : 1945 Visit/Account:[id number] Date of Sevice: 01/09/2018 CT abdomen and pelvis without IV contrast - Renal Stone Protocol History: Right flank pain COMPARISON STUDIES: CT abdomen and pelvis 04/16/2017, 12/13/2016. TECHNIQUE: Axial CT images were obtained through the kidneys, ureters, and bladder without IV contr ast. Reformatted coronal and sagittal images were also obtained. One of the following dose optimization techniques was utilized in the performance of this exam: Autom ated exposure control; adjustment of the mA and/or kV according to the patient's size; or use of an i terative reconstruction technique. Specific details can be referenced in the facility's radiology C T exam operational policy. FINDINGS: CT Abdomen and Pelvis- Chest bases: Coronary artery calcifications are noted. Liver: Liver is large with right and left lobes measuring 18 and 8 cm length. The liver is diffusel y fatty. Spleen: size is normal. Gallbladder and bile ducts: Cholecystectomy. Normal sized bile ducts. Pancreas: negative Adrenal glands: Low density adrenal mass, 17 mm, is unchanged. Right kidney and ureter: There are no renal stones or hydronephrosis. Left kidney and ureter: There are no renal stones or hydronephrosis. Moderate renal vascular calcif ications. Several left renal cysts have not significantly changed, the largest in the anterior mid p ole measuring 4.4 cm. Pelvic structures: Mild prostate gland enlargement. There are no bladder stones. Bowel and mesenteries: Celso-en-Y gastroplasty surgical changes. There is herniation of the gastric pouch through a hiatal hernia, unchanged. Ascites: None Vessels: Femoral-femoral arterial graft is noted. There is thick circumferential calcification of t he infrarenal abdominal aorta and advanced calcification of the iliac arteries. There is a stent pos itioned within the right proximal common iliac artery. Left external iliac artery is likely chronica lly occluded due to its small size and lumen obscuring calcification. Musculoskeletal: Mild degenerative disc changes in the lower thoracic spine. Body wall: Previous ventral herniorrhaphy with mesh. Abd/Pelvis lymph node assessment: negative IMPRESSION: 1. Negative CT for urinary stones and renal collecting system obstruction. 2. 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 There is a femoral-femoral arterial bypass graft. 3. Mild hepatomegaly and hepatic steatosis. 4. Coronary artery calcifications. 5. Left adrenal nodule has not significantly changed from at least 12/13/2016, and is likely an adeno ma Report Dictated By: Estelle Badillo MD at 01/09/2018 12:18 PM Report E-Signed By: Estelle Badillo MD at 01/09/2018 12:32 PM WSN:[email or web address]
[2018-01-09] MEDS ORDERED: METH-543 PO (12:41)
[2018-01-09] MEDS ORDERED: LOR5/325 PO (12:41)
[2018-01-09 12:45] VITALS: BP 156/89
[2018-01-10] MEDS ORDERED: METO-734 PO (07:55)
== END 2018-01-09 13:01 | disposition home or self-care (01) ==
LOC: ER 10:41
DX: M54.9 Dorsalgia, unspecified (principal)
CPT/HCPCS: 74176; 81001; 82150; 83690; 85025; 86677; 87088; 99284; J1170; J1885; J2060; J2405; J7120; 82040; 82247; 82310; 82374; 82435; 82565; 82947; 84075; 84132; 84155; 84295; 84450; 84460; 84520; Q9967

== ENCOUNTER 2018-01-09 18:05 | Emergency (ER) | payer MEDICARE ==
[2016-04-21 13:01] VITALS: Wt 99.9 kg
--- NOTE | 2018-01-09 18:15 | ER Report ---
History and Physical Time Seen By MD: 18:15 HPI/ROS CHIEF COMPLAINT: abdominal pain HISTORY OF PRESENT ILLNESS: This is a 72 year old male. He is having right lower abdominal pain. Had been seen here in the ER this morning with labs and CT scan which did not reveal any problems. He was feeling better on discharge. He said the pain is back. He is continuing to have loose stools. Diarrhea. Nausea but no vomiting. No testicular pain. No pain in legs. Back pain is chronic and unchanged. No further flank pain. No fevers or chills. Has not picked up his prescriptions yet. Allergies: Coded Allergies: naproxen (Verified Allergy, Severe, CHEST PAIN, RASH, 01/09/18) Penicillins (Verified Allergy, Mild, ITCHING, 01/09/18) Home Meds Active Scripts Methocarbamol (ROBAXIN-750) 750 Mg Tablet, 1500 MG PO TID for Muscle Relaxant, # 15 TAB 0 Refills Prov:FREDDY GATICA MD 01/09/18 Hydrocodone Bit/Acetaminophen (HYDROCODON-ACETAMINOPHEN 5-325) 1 Each Tablet, 1 EACH PO Q4-6H Y for PAIN, #12 TAB 0 Refills TAKE ONE TABLET BY MOUTH EVERY 4-6 HOURS NEEDED FOR PAIN Prov:FREDDY GATICA MD 01/09/18 Simethicone (SIMETHICONE) 80 Mg Tab.chew, 80 MG PO QID for 7 Days, #28 TAB.CHEW Prov:FREDDY GATICA MD 05/21/17 Reported Medications Acetaminophen (TYLENOL EXTRA STRENGTH) 500 Mg Tablet, 1 TAB PO TID Y for PAIN, TAB 04/10/17 Lisinopril (LISINOPRIL) 2.5 Mg Tablet, 1 TAB PO QDAY 04/10/17 Insulin Detemir (Levemir Flextouch) 100 Unit/1 Ml Insuln.pen, 54 UNITS SUBQ BID 04/10/17 Cholecalciferol (Vitamin D3) (VITAMIN D) 10,000 Unit Capsule, 1 CAP PO DAILY, CAPSULE 04/10/17 Potassium Chloride (POTASSIUM CHLORIDE) 10 Meq Capsule.er, 1 CAP PO DAILY Y for DIARRHEA 04/10/17 Ferrous Sulfate, Dried (IRON) Unknown Strength Tablet.er, 65 MG PO BID 04/10/17 [place]-3 Fatty Acids/Fish Oil (FISH OIL 1,000 MG SOFTGEL) 1 Each Capsule, 1 EACH PO BID, CAPSULE 04/10/17 [place], Insulin Disposable (Bd Ultra-Fine Pen Needle) 1 Each Dis.needle, EACH 5XD, #100 04/10/17 Albuterol Sulfate 0.083% (ALBUTEROL SULFATE 0.083%) 2.5 Mg/3 Ml Vial.neb, 2.5 MG INH Q8H Y for WHEEZING, INH 04/10/17 Multivitamin (MEN'S MULTI-VITAMIN) 1 Each Tablet, 1 EACH PO DAILY 04/10/17 Allopurinol (ZYLOPRIM) 300 Mg Tablet, 1 TAB PO QDAY, TAB 04/10/17 Insulin Lispro (Humalog Kwikpen) 200 Unit/1 Ml Insuln.pen, 20 UNIT SQ TIDAC, #6 02/28/16 Albuterol Sulfate (Proventil Hfa) 6.7 Gm Aer.w.adap, 2 PUFF INH Q4H Y for WHEEZING, 0 Refills 09/07/11 Discontinued Scripts Hydrocodone Bit/Acetaminophen (HYDROCODON-ACETAMINOPHEN 5-325) 1 Each Tablet, 1 EACH PO Q4H Y for PAIN, #12 TAB 0 Refills Prov:JAMEY VILLASENOR MD 12/07/17 Methylprednisolone (METHYLPREDNISOLONE) 4 Mg Tab.ds.pk, 4 MG PO DIRECTED, #1 PACK 0 Refills Prov:JAMEY VILLASENOR MD 12/07/17 Reviewed Nurses Notes: Yes Hx Smoking: No (1PPDX 30 YEARS- QUIT 2000) Smoking Status: Former Smoker Exposure to Second Hand Smoke?: No Hx Substance Use Disorder: No Hx Alcohol Use: No Constitutional Vital Sign - Last 24 Hours 01/09/18 01/09/18 01/09/18 01/09/18 18:14 18:14 18:15 18:20 Temp 98.2 Pulse 89 89 87 Resp 16 B/P (MAP) 160/73 160/73 (102) Pulse Ox 93 93 94 O2 Delivery Room Air 01/09/18 01/09/18 01/09/18 01/09/18 18:25 18:30 18:35 18:40 Pulse 87 86 87 85 B/P (MAP) 151/78 (102) Pulse Ox 93 94 93 93 01/09/18 01/09/18 01/09/18 01/09/18 18:45 18:50 18:55 19:00 Pulse 84 83 81 77 Pulse Ox 94 93 94 92 01/09/18 01/09/18 01/09/18 01/09/18 19:30 19:45 20:00 20:15 Pulse 76 78 78 72 B/P (MAP) 151/70 (97) 142/73 (96) Pulse Ox 93 95 94 95 01/09/18 20:24 Pulse 85 Resp 16 B/P (MAP) 148/88 (108) Pulse Ox 93 O2 Delivery Room Air Physical Exam General Appearance: The patient is alert. No acute distress. Eyes: Pupils are equal, round. No pallor, injection or icterus. ENT: Mucous membranes are moist. Normal oral mucosa. Posterior oropharynx is normal. Neck: Supple and non tender. Respiratory: Lungs are clear to auscultation. Cardiovascular: Regular rate and rhythm. No murmurs, gallops or rubs. Normal capillary refill. Gastrointestinal: Abdomen is soft, tender to palpation throughout, seems worse in the right lower area. Nondistended. No rebound or guarding. Normal active bowel sounds. No costovertebral angle tenderness with percussion. Genitourinary: Testicular exam reveals no masses, normal testicles without pain. No hernias, direct or indirect. Neurological: Alert and oriented x3. Skin: Warm and dry. No rashes. Musculoskeletal: No groin pain. Full range of motion. DIFFERENTIAL DIAGNOSIS: After history and physical exam, differential diagnosis was considered for abdominal pain including but not limited to appendicitis, cholecystitis, gastritis, gastroenteritis, kidney stones, and urinary tract infection. Medical Decision Making Data Points Result Diagram: 01/09/18 1840 01/09/18 1840 Laboratory Hematology Test 01/09/18 18:40 Red Blood Count 4.60 M/uL (4.00-5.60) Mean Corpuscular Volume 89.2 fL (80.0-96.0) Mean Corpuscular Hemoglobin 30.4 pg (26.0-33.0) Mean Corpuscular Hemoglobin Concent 34.0 g/dL (32.0-36.0) Red Cell Distribution Width 14.4 % (11.5-14.5) Mean Platelet Volume 7.8 fL (7.2-11.1) Neutrophils (%) (Auto) 69.5 % (39.4-72.5) Lymphocytes (%) (Auto) 15.9 % (17.6-49.6) Monocytes (%) (Auto) 12.3 % (4.1-12.4) Eosinophils (%) (Auto) 1.5 % (0.4-6.7) Basophils (%) (Auto) 0.8 % (0.3-1.4) Nucleated RBC Relative Count (auto) 0.0 /100WBC Neutrophils # (Auto) 6.6 K/uL (2.0-7.4) Lymphocytes # (Auto) 1.5 K/uL (1.3-3.6) Monocytes # (Auto) 1.2 K/uL (0.3-1.0) Eosinophils # (Auto) 0.1 K/uL (0.0-0.5) Basophils # (Auto) 0.1 K/uL (0.0-0.1) Nucleated RBC Absolute Count (auto) 0.00 K/uL Sodium Level 135 mmol/L (137-145) Potassium Level 4.2 mmol/L (3.5-5.0) Chloride Level 102 mmol/L (98-107) Carbon Dioxide Level 21 mmol/L (22-30) Blood Urea Nitrogen 20 mg/dl (9-21) Creatinine 0.90 mg/dl (0.66-1.25) Glomerular Filtration Rate Calc > 60.0 Random Glucose 170 mg/dl (75-110) Calcium Level 8.2 mg/dl (8.4-10.2) Total Bilirubin 0.3 mg/dl (0.2-1.3) Aspartate Amino Transf (AST/SGOT) 14 U/L (0-35) Alanine Aminotransferase (ALT/SGPT) 31 U/L (0-56) Alkaline Phosphatase 90 U/L (0-126) Total Protein 6.1 gm/dl (6.3-8.2) Albumin 3.4 g/dl (3.5-5.0) Chemistry Test 01/09/18 18:40 White Blood Count 9.5 k/uL (4.5-11.0) Red Blood Count 4.60 M/uL (4.00-5.60) Hemoglobin 14.0 g/dL (14.0-18.0) Hematocrit 41.0 % (42.0-52.0) Mean Corpuscular Volume 89.2 fL (80.0-96.0) Mean Corpuscular Hemoglobin 30.4 pg (26.0-33.0) Mean Corpuscular Hemoglobin Concent 34.0 g/dL (32.0-36.0) Red Cell Distribution Width 14.4 % (11.5-14.5) Platelet Count 235 K/uL (150-450) Mean Platelet Volume 7.8 fL (7.2-11.1) Neutrophils (%) (Auto) 69.5 % (39.4-72.5) Lymphocytes (%) (Auto) 15.9 % (17.6-49.6) Monocytes (%) (Auto) 12.3 % (4.1-12.4) Eosinophils (%) (Auto) 1.5 % (0.4-6.7) Basophils (%) (Auto) 0.8 % (0.3-1.4) Nucleated RBC Relative Count (auto) 0.0 /100WBC Neutrophils # (Auto) 6.6 K/uL (2.0-7.4) Lymphocytes # (Auto) 1.5 K/uL (1.3-3.6) Monocytes # (Auto) 1.2 K/uL (0.3-1.0) Eosinophils # (Auto) 0.1 K/uL (0.0-0.5) Basophils # (Auto) 0.1 K/uL (0.0-0.1) Nucleated RBC Absolute Count (auto) 0.00 K/uL Glomerular Filtration Rate Calc > 60.0 Calcium Level 8.2 mg/dl (8.4-10.2) Total Bilirubin 0.3 mg/dl (0.2-1.3) Aspartate Amino Transf (AST/SGOT) 14 U/L (0-35) Alanine Aminotransferase (ALT/SGPT) 31 U/L (0-56) Alkaline Phosphatase 90 U/L (0-126) Total Protein 6.1 gm/dl (6.3-8.2) Albumin 3.4 g/dl (3.5-5.0) EKG/Imaging Imaging Abdominal series with single view of the chest: 01/09/2018 6:26 PM HISTORY: Abdominal pain COMPARISON: CT this morning FINDINGS: Gas within large and small bowel loops and a moderate amount of fecal material in the colon. No distal impaction. There is gas in the rectum. Right upper quadrant cholecystectomy clips. No calculus. Degenerative changes along the spine. Cardiomediastinal contours are normal. No pulmonary nodule, infiltrate, or consolidation. Swollen or scarring in the lateral left base. Pleural spaces are clear. Old left rib trauma.. IMPRESSION: 1. Gas in bowel and fecal material in the colon with a nonobstructive pattern. 2. No acute cardiopulmonary process. Report Dictated By: Miquel Macedo MD at 01/09/2018 7:23 PM ED Course/Re-evaluation ED Course The nurse evaluated and he was sleeping in the room. Some improvement with Lortab and Dicyclomine, not completely though. Discussed repeated labs and abdominal 3 view. Decision to Disposition Date: Jan 09, 2018 Decision to Disposition Time: 20:15 Depart Departure Latest Vital Signs Vital Signs Date Time Temp Pulse Resp B/P (MAP) Pulse Ox O2 Delivery O2 Flow Rate FiO2 01/09/18 20:24 85 16 148/88 (108) 93 Room Air 01/09/18 18:14 98.2 Impression: Primary Impression: Abdominal pain Condition: Improved Disposition: HOME OR SELF-CARE Referrals: JOSELUIS REYNOLDS (PCP) Patient Instructions: Acute Abdominal Pain (ED) Additional Instructions: We did not find a cause for your abdominal pain today. We think that this might be due to a viral process causing pain, diarrhea, and nausea. Take your Zofran 4mg tablets as needed for nausea. Take Lortab 5/325, one every 4 hours as needed for pain. Clear liquid diet for the next 24 hours, then switch to a bland diet. Problem Qualifiers Primary Impression: Abdominal pain Abdominal location: right lower quadrant Qualified Codes: R10.31 - Right lower quadrant pain JAMEY VILLASENOR MD Jan 09, 2018 18:15
[2018-01-09] MEDS ORDERED: DICYCLOMINE HCL 10 MG CAP PO ONE (18:30)
[2018-01-09] MEDS ORDERED: APAP/HYDROCODONE 325/10 TAB PO ONE (18:30)
[2018-01-09] MEDS ORDERED: ONDANSETRON 4 MG ODT TABDP SL ONE (18:30)
[2018-01-09 19:06] LABS: PLATELET COUNT, AUTOMATED 235 K/uL (150-450)
--- NOTE | 2018-01-09 19:30 | RADIOLOGY IMAGING REPORT ---
FACILITY: [facility] PATIENT NAME: Nomi Whiting : 1945 MR: [id number] V: [id number] EXAM DATE: ORDERING PHYSICIAN: JAMEY VILLASENOR TECHNOLOGIST: Location: [facility] [place] Patient: Nomi Whiting : 1945 Visit/Account:[id number] Date of Sevice: 01/09/2018 Abdominal series with single view of the chest: 01/09/2018 6:26 PM HISTORY: Abdominal pain COMPARISON: CT this morning FINDINGS: Gas within large and small bowel loops and a moderate amount of fecal material in the colo n. No distal impaction. There is gas in the rectum. Right upper quadrant cholecystectomy clips. No ca lculus. Degenerative changes along the spine. Cardiomediastinal contours are normal. No pulmonary nodule, infiltrate, or consolidation. Swollen or scarring in the lateral left base. Pleural spaces are clear. Old left rib trauma.. IMPRESSION: 1. Gas in bowel and fecal material in the colon with a nonobstructive pattern. 2. No acute cardiopulmonary process. Report Dictated By: Miquel Macedo MD at 01/09/2018 7:23 PM Report E-Signed By: Miquel Macedo MD at 01/09/2018 7:27 PM WSN:[id number]
[2018-01-09 20:24] VITALS: BP 148/88
[2018-01-10] MEDS ORDERED: METO-734 PO (07:55)
== END 2018-01-09 20:32 | disposition home or self-care (01) ==
LOC: ER 18:05
DX: R10.31 Right lower quadrant pain (principal)
CPT/HCPCS: 36415; 74022; 85025; 99283; A9270; Q0162; 82040; 82247; 82310; 82374; 82435; 82565; 82947; 84075; 84132; 84155; 84295; 84450; 84460; 84520; S0119

== ENCOUNTER → 2018-01-09 | Outpatient (CLI) | payer MEDICARE ==
[2016-04-21 13:01] VITALS: BMI 33.5
[~2018-01-09] MED LIST changes: +INSU100C14 SQ; +METO-734 PO
== END ==
LOC: AMB 17:48
PROVIDERS: ATTEND Nurse Practitioner
DX: R10.9 Unspecified abdominal pain (principal); R04.2 Hemoptysis; E11.9 Type 2 diabetes mellitus without complications
CPT/HCPCS: A0425; A0427

== ENCOUNTER 2018-01-10 05:31 | Emergency (ER) | payer MEDICARE ==
[2016-04-21 13:01] VITALS: Wt 99.8 kg
[~2018-01-10 05:31] MED LIST changes: -INSU100C14 SQ; -METO-734 PO
--- NOTE | 2018-01-10 05:43 | ER Report ---
History and Physical Time Seen By MD: 05:43 Hx. of Stated Complaint: patient states that he has increase in N/V since last er visit (JAMEY VILLASENOR MD) HPI/ROS CHIEF COMPLAINT: abdominal pain , nausea/vomiting HISTORY OF PRESENT ILLNESS: This is a 72 year old male. He came back to the ER this morning after calling the ambulance for worsening abdominal pain and nausea /vomiting. He left the ER last night after a 2nd workup in 24 hours. He stated that he has been vomiting all night, and has not slept. He was diagnosed with what was thought to be a viral gastroenteritis last night. 1st visit yesterday was for flank pain. CT scan, labs and urinalysis negative. Sent home with Lortab and Robaxin prescriptions which he had not filled at the 2nd visit. He has filled these and has taken Lortab and Zofran during the night without relief. He says the pain is now not only in right lower abdomen, but throughout the entire abdomen and he feels distended. Has a funny feeling in chest, kind of a tightness. Says it feels like he needs to throw up but cant the it sits under his sternum. He has no fevers or chills. Having diarrhea tonight, last diarrhea was at 0100 hours. (JAMEY VILLASENOR MD) Allergies: Coded Allergies: naproxen (Verified Allergy, Severe, CHEST PAIN, RASH, 01/10/18) Penicillins (Verified Allergy, Mild, ITCHING, 01/10/18) Home Meds Active Scripts Metoclopramide Hcl (REGLAN) 10 Mg Tablet, 10 MG PO Q6H for Nausea, #15 TAB 0 Refills Prov:FREDDY GATICA MD 01/10/18 Methocarbamol (ROBAXIN-750) 750 Mg Tablet, 1500 MG PO TID for Muscle Relaxant, # 15 TAB 0 Refills Prov:FREDDY GATICA MD 01/09/18 Hydrocodone Bit/Acetaminophen (HYDROCODON-ACETAMINOPHEN 5-325) 1 Each Tablet, 1 EACH PO Q4-6H Y for PAIN, #12 TAB 0 Refills TAKE ONE TABLET BY MOUTH EVERY 4-6 HOURS NEEDED FOR PAIN Prov:FREDDY GATICA MD 01/09/18 Simethicone (SIMETHICONE) 80 Mg Tab.chew, 80 MG PO QID for 7 Days, #28 TAB.CHEW Prov:FREDDY GATICA MD 05/21/17 Reported Medications Acetaminophen (TYLENOL EXTRA STRENGTH) 500 Mg Tablet, 1 TAB PO TID Y for PAIN, TAB 04/10/17 Lisinopril (LISINOPRIL) 2.5 Mg Tablet, 1 TAB PO QDAY 04/10/17 Insulin Detemir (Levemir Flextouch) 100 Unit/1 Ml Insuln.pen, 54 UNITS SUBQ BID 04/10/17 Cholecalciferol (Vitamin D3) (VITAMIN D) 10,000 Unit Capsule, 1 CAP PO DAILY, CAPSULE 04/10/17 Potassium Chloride (POTASSIUM CHLORIDE) 10 Meq Capsule.er, 1 CAP PO DAILY Y for DIARRHEA 04/10/17 Ferrous Sulfate, Dried (IRON) Unknown Strength Tablet.er, 65 MG PO BID 04/10/17 [place]-3 Fatty Acids/Fish Oil (FISH OIL 1,000 MG SOFTGEL) 1 Each Capsule, 1 EACH PO BID, CAPSULE 04/10/17 [place], Insulin Disposable (Bd Ultra-Fine Pen Needle) 1 Each Dis.needle, EACH 5XD, #100 04/10/17 Albuterol Sulfate 0.083% (ALBUTEROL SULFATE 0.083%) 2.5 Mg/3 Ml Vial.neb, 2.5 MG INH Q8H Y for WHEEZING, INH 04/10/17 Multivitamin (MEN'S MULTI-VITAMIN) 1 Each Tablet, 1 EACH PO DAILY 04/10/17 Allopurinol (ZYLOPRIM) 300 Mg Tablet, 1 TAB PO QDAY, TAB 04/10/17 Insulin Lispro (Humalog Kwikpen) 200 Unit/1 Ml Insuln.pen, 20 UNIT SQ TIDAC, #6 02/28/16 Albuterol Sulfate (Proventil Hfa) 6.7 Gm Aer.w.adap, 2 PUFF INH Q4H Y for WHEEZING, 0 Refills 09/07/11 Discontinued Scripts Hydrocodone Bit/Acetaminophen (HYDROCODON-ACETAMINOPHEN 5-325) 1 Each Tablet, 1 EACH PO Q4H Y for PAIN, #12 TAB 0 Refills Prov:JAMEY VILLASENOR MD 12/07/17 Methylprednisolone (METHYLPREDNISOLONE) 4 Mg Tab.ds.pk, 4 MG PO DIRECTED, #1 PACK 0 Refills Prov:JAMEY VILLASENOR MD 12/07/17 Reviewed Nurses Notes: Yes (JAMEY VILLASENOR MD) Hx Smoking: No (1PPDX 30 YEARS- QUIT 2000) Smoking Status: Former Smoker Exposure to Second Hand Smoke?: No Hx Substance Use Disorder: No Hx Alcohol Use: No (JAMEY VILLASENOR MD) Constitutional Vital Sign - Last 24 Hours 01/10/18 01/10/18 01/10/18 01/10/18 05:31 05:33 05:46 06:01 Temp 97.7 Pulse 86 84 83 86 Resp 20 B/P (MAP) 156/85 Pulse Ox 83 88 88 92 O2 Delivery Room Air 01/10/18 01/10/18 01/10/18 01/10/18 06:12 06:16 06:30 06:31 Pulse 80 79 B/P (MAP) 144/61 (88) 152/72 (98) Pulse Ox 91 94 01/10/18 01/10/18 01/10/18 01/10/18 06:36 06:51 07:00 07:30 Pulse 81 ??? B/P (MAP) 175/165 (168) 122/54 (76) Pulse Ox 94 01/10/18 01/10/18 07:45 08:00 B/P (MAP) 162/93 (116) 134/79 (97) (FREDDY GATICA MD) Physical Exam General Appearance: The patient is alert. Acute distress due to vomiting and pain. Eyes: Pupils are equal, round. No pallor, injection or icterus. ENT: Mucous membranes are moist. Normal oral mucosa. Posterior oropharynx is normal. Neck: Supple and non tender. Respiratory: Lungs are clear to auscultation. Cardiovascular: Regular rate and rhythm. No murmurs, gallops or rubs. Normal capillary refill. Gastrointestinal: Abdomen is tender throughout. Appears distended. Guarding. Hyperactive bowel sounds. Neurological: Alert and oriented x3. DIFFERENTIAL DIAGNOSIS: After history and physical exam, differential diagnosis was considered for abdominal pain with diarrhea and nausea/vomiting that has worsened. He does have a change in exam from last night. Will repeat workup, although still feel that this is viral gastroenteritis. He may be developing bowel obstruction. Will provide Phenergan for nausea and a liter of normal saline. Will avoid any narcotic pain medicine at this time because of concern for drug seeking behavior. (JAMEY VILLASENOR MD) Medical Decision Making Data Points Result Diagram: 01/10/18 0602 01/10/18 0602 Laboratory Hematology Test 01/10/18 06:02 Red Blood Count 4.73 M/uL (4.00-5.60) Mean Corpuscular Volume 89.2 fL (80.0-96.0) Mean Corpuscular Hemoglobin 31.1 pg (26.0-33.0) Mean Corpuscular Hemoglobin Concent 34.9 g/dL (32.0-36.0) Red Cell Distribution Width 14.9 % (11.5-14.5) Mean Platelet Volume 7.6 fL (7.2-11.1) Neutrophils (%) (Auto) 75.1 % (39.4-72.5) Lymphocytes (%) (Auto) 11.1 % (17.6-49.6) Monocytes (%) (Auto) 12.1 % (4.1-12.4) Eosinophils (%) (Auto) 1.2 % (0.4-6.7) Basophils (%) (Auto) 0.5 % (0.3-1.4) Nucleated RBC Relative Count (auto) 0.1 /100WBC Neutrophils # (Auto) 8.0 K/uL (2.0-7.4) Lymphocytes # (Auto) 1.2 K/uL (1.3-3.6) Monocytes # (Auto) 1.3 K/uL (0.3-1.0) Eosinophils # (Auto) 0.1 K/uL (0.0-0.5) Basophils # (Auto) 0.1 K/uL (0.0-0.1) Nucleated RBC Absolute Count (auto) 0.01 K/uL Sodium Level 132 mmol/L (137-145) Potassium Level 4.5 mmol/L (3.5-5.0) Chloride Level 97 mmol/L (98-107) Carbon Dioxide Level 22 mmol/L (22-30) Blood Urea Nitrogen 20 mg/dl (9-21) Creatinine 0.70 mg/dl (0.66-1.25) Glomerular Filtration Rate Calc > 60.0 Random Glucose 198 mg/dl (75-110) Lactate 1.4 mmol/L (0.7-2.1) Calcium Level 8.3 mg/dl (8.4-10.2) Total Bilirubin 0.6 mg/dl (0.2-1.3) Aspartate Amino Transf (AST/SGOT) 18 U/L (0-35) Alanine Aminotransferase (ALT/SGPT) 28 U/L (0-56) Alkaline Phosphatase 106 U/L (0-126) Troponin I < 0.012 ng/ml Total Protein 6.7 gm/dl (6.3-8.2) Albumin 3.8 g/dl (3.5-5.0) Chemistry Test 01/10/18 06:02 White Blood Count 10.6 k/uL (4.5-11.0) Red Blood Count 4.73 M/uL (4.00-5.60) Hemoglobin 14.7 g/dL (14.0-18.0) Hematocrit 42.2 % (42.0-52.0) Mean Corpuscular Volume 89.2 fL (80.0-96.0) Mean Corpuscular Hemoglobin 31.1 pg (26.0-33.0) Mean Corpuscular Hemoglobin Concent 34.9 g/dL (32.0-36.0) Red Cell Distribution Width 14.9 % (11.5-14.5) Platelet Count 245 K/uL (150-450) Mean Platelet Volume 7.6 fL (7.2-11.1) Neutrophils (%) (Auto) 75.1 % (39.4-72.5) Lymphocytes (%) (Auto) 11.1 % (17.6-49.6) Monocytes (%) (Auto) 12.1 % (4.1-12.4) Eosinophils (%) (Auto) 1.2 % (0.4-6.7) Basophils (%) (Auto) 0.5 % (0.3-1.4) Nucleated RBC Relative Count (auto) 0.1 /100WBC Neutrophils # (Auto) 8.0 K/uL (2.0-7.4) Lymphocytes # (Auto) 1.2 K/uL (1.3-3.6) Monocytes # (Auto) 1.3 K/uL (0.3-1.0) Eosinophils # (Auto) 0.1 K/uL (0.0-0.5) Basophils # (Auto) 0.1 K/uL (0.0-0.1) Nucleated RBC Absolute Count (auto) 0.01 K/uL Glomerular Filtration Rate Calc > 60.0 Lactate 1.4 mmol/L (0.7-2.1) Calcium Level 8.3 mg/dl (8.4-10.2) Total Bilirubin 0.6 mg/dl (0.2-1.3) Aspartate Amino Transf (AST/SGOT) 18 U/L (0-35) Alanine Aminotransferase (ALT/SGPT) 28 U/L (0-56) Alkaline Phosphatase 106 U/L (0-126) Troponin I < 0.012 ng/ml Total Protein 6.7 gm/dl (6.3-8.2) Albumin 3.8 g/dl (3.5-5.0) (FREDDY GATICA MD) EKG/Imaging Imaging PATIENT NAME: Nomi Whiting : 1945 MR: [id number] V: [id number] EXAM DATE: ORDERING PHYSICIAN: JAMEY VILLASENOR TECHNOLOGIST: Location: [facility] [place] Patient: Nomi Whiting : 1945 Visit/Account:[id number] Date of Sevice: 01/10/2018 ABDOMEN/PELVIS WITH CONTRAST HISTORY: Abdominal pain, nausea, and vomiting. COMPARISON: 01/09/2018 and studies dating to 06/18/2011. TECHNIQUE: Axial images were obtained from the lung bases through the symphysis pubis with intravenous contrast. Sagittal and coronal reformats were performed. One of the following dose optimization techniques was utilized in the performance of this exam: Automated exposure control; adjustment of the mA and/ or kV according to the patient's size; or use of an iterative reconstruction technique. Specific details can be referenced in the facility's radiology CT exam operational policy. CONTRAST: 75 mL IV [id number]. FINDINGS: Lower chest: There are at least mild coronary artery calcifications. There is mild atelectasis. Liver: Liver is diffusely decreased in attenuation and enlarged, measuring 21.4 cm, compatible with hepatic steatosis. Gallbladder/biliary: Status post cholecystectomy. No intrahepatic or extrahepatic ductal dilation. Pancreas: There is mild to moderate atrophy. Spleen: Normal. Adrenals: There is a 2.1 cm x 1.5 right adrenal mass that has slowly increased in size over time, measuring 1.8 x 1.0 cm in 2011. The left adrenal gland is normal. Kidneys/ureters/bladder: There are cortical cysts of the left kidney. There are too small to characterize low attenuating lesions within both kidneys that statistically are likely to represent renal cysts. There is no hydronephrosis. The ureters and the bladder are normal. GI/mesentery/peritoneal cavity: There is a small type I hiatal hernia. There are changes of gastric bypass. There is a moderate to large amount of stool throughout colon. There is no bowel obstruction. There is no wall thickening or pericolonic stranding. The appendix is normal. There is sigmoid and descending colon diverticulosis without diverticulitis. There is no intra-abdominal free air or free fluid. Vessels: There is severe atherosclerotic disease without aneurysm. No dissection. 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 Nodes: Normal. Pelvis: Normal. Bones/vertebra/soft tissues: Dense material at the ventral abdomen is compatible with prior ventral hernia repair. There is stable depression of the anterior half of the T11 and T12 superior endplates. There is calcification of the T12-L1 disc. There is severe degenerative facet disease of the lower lumbar spine. There is stable density in the subcutaneous fat of the right ventral lower abdominal wall on image 97, potentially related to prior surgery. IMPRESSION: 1. Moderate to large stool burden. No obstruction. 2. Hepatic steatosis. It can progress to steatohepatitis and eventual cirrhosis. 3. Slowly enlarging right adrenal mass. Potentially this is a benign adenoma, given the slow growth, although Hounsfield units on noncontrast study of January 09, 2018 were not diagnostic. Report Dictated By: Leola Donnelly at 01/10/2018 7:27 AM Report E-Signed By: Leola Donnelly at 01/10/2018 7:43 AM WSN:[id number] (FREDDY GATICA MD) ED Course/Re-evaluation ED Course 01/10/2018 8:12:52 am workup unremarkable. Patient counseled on need follow-up with gastroenterology. We will switch patient from Zofran to Reglan for promotility effects. Patient instructed to continue all current outpatient medications with the exception of Zofran at this time. Decision to Disposition Date: Jan 10, 2018 Decision to Disposition Time: 08:11 (FREDDY GATICA MD) Depart Departure Latest Vital Signs Vital Signs Date Time Temp Pulse Resp B/P (MAP) Pulse Ox O2 Delivery O2 Flow Rate FiO2 01/10/18 08:00 134/79 (97) 01/10/18 06:51 ??? 01/10/18 06:36 94 01/10/18 05:33 97.7 20 Room Air (FREDDY GATICA MD) Impression: Primary Impression: Nausea & vomiting Additional Impression: Abdominal pain Condition: Improved Disposition: HOME OR SELF-CARE Referrals: JOSELUIS HWANG (PCP) 2 Days New Scripts Metoclopramide Hcl (REGLAN) 10 Mg Tablet 10 MG PO Q6H for Nausea, #15 TAB 0 Refills Prov: FREDDY GATICA MD 01/10/18 Patient Instructions: Abdominal Pain (ED), Acute Nausea and Vomiting (ED) Additional Instructions: Discontinue use of your Zofran for nausea and start using Reglan every 6 hours for nausea and vomiting. As discussed during this hospital visit it is very important need schedule follow-up with a airport shuttle driver for further evaluation of her symptoms. You should follow-up with Dr. Hwang this week or reevaluation of her symptoms Problem Qualifiers Primary Impression: Nausea & vomiting Vomiting type: unspecified Vomiting Intractability: unspecified Qualified Codes: R11.2 - Nausea with vomiting, unspecified Additional Impression: Abdominal pain Abdominal location: unspecified location Qualified Codes: R10.9 - Unspecified abdominal pain JAMEY VILLASENOR MD Jan 10, 2018 05:43 FREDDY GATICA MD Jan 10, 2018 07:57
[2018-01-10] MEDS ORDERED: PROMETHAZINE 25 MG/ML 1 ML AMP IVP ONE (06:00)
[2018-01-10] MEDS ORDERED: NS(*) 0.9% 1000 ML BAG 1,000 ML IV ONE (06:00)
[2018-01-10] MEDS ORDERED: IOPAMIDOL 76% 75 ML INFUS BTL 75 ML ONE (06:14)
[2018-01-10 06:16] LABS: PLATELET COUNT, AUTOMATED 245 K/uL (150-450)
--- NOTE | 2018-01-10 06:34 | EKG ---
FACILITY: [facility] - [place] PATIENT NAME: BRETT BRADLEY : [id number] MR: [id number] V: [id number] EXAM DATE: ORDERING PHYSICIAN: JAMEY VILLASENOR TECHNOLOGIST: SHAY Test Reason : N/V Blood Pressure : / mmHG Vent. Rate : 078 BPM Atrial Rate : 078 BPM P-R Int : 164 ms QRS Dur : 092 ms QT Int : 388 ms P-R-T Axes : 071 082 060 degrees QTc Int : 442 ms Poor data quality, interpretation may be adversely affected Normal sinus rhythm Normal ECG When compared with ECG of 06-DEC-2017 22:41, Criteria for Septal infarct are no longer present Confirmed by AZAR ZIMMER ([id number]) on 01/10/2018 10:33:00 AM Referred By: Confirmed By:AZAR ZIMMER
--- NOTE | 2018-01-10 07:27 | RADIOLOGY IMAGING REPORT ---
FACILITY: [facility] [place] PATIENT NAME: Nomi Whiting : 1945 MR: [id number] V: [id number] EXAM DATE: ORDERING PHYSICIAN: JAMEY VILLASENOR TECHNOLOGIST: Location: [facility] [place] Patient: Nomi Whiting : 1945 Visit/Account:[id number] Date of Sevice: 01/10/2018 CHEST SINGLE AP 01/10/2018 06:00 hours. HISTORY: Abdominal pain. Nausea and vomiting. COMPARISON: 01/06/2018 and studies dating to 01/13/2008. TECHNIQUE: Portable AP view of the chest. FINDINGS: Tubes/lines/hardware: None. Pulmonary: There is subsegmental curvilinear opacity at the left lateral lung base, new. There is no pneumothorax or pleural effusion. Cardiomediastinal: Cardiac and mediastinal silhouettes are within normal limits. There is mild aortic calcification. Bones/soft tissues: No acute osseous abnormality. There is mild to moderate degenerative change of th e spine. The visible abdomen is normal. IMPRESSION: 1. New subsegmental scarring or atelectasis at the left base. Report Dictated By: Leola Donnelly at 01/10/2018 7:22 AM Report E-Signed By: Leola Donnelly at 01/10/2018 7:23 AM WSN:[id number]
--- NOTE | 2018-01-10 07:47 | RADIOLOGY IMAGING REPORT ---
FACILITY: [facility] - [place] PATIENT NAME: Nomi Whiting : 1945 MR: [id number] V: [id number] EXAM DATE: ORDERING PHYSICIAN: JAMEY VILLASENOR TECHNOLOGIST: Location: [facility] Patient: Nomi Whiting : 1945 Visit/Account:[id number] Date of Sevice: 01/10/2018 ABDOMEN/PELVIS WITH CONTRAST HISTORY: Abdominal pain, nausea, and vomiting. COMPARISON: 01/09/2018 and studies dating to 06/18/2011. TECHNIQUE: Axial images were obtained from the lung bases through the symphysis pubis with intravenou s contrast. Sagittal and coronal reformats were performed. One of the following dose optimization techniques was utilized in the performance of this exam: Autom ated exposure control; adjustment of the mA and/or kV according to the patient's size; or use of an i terative reconstruction technique. Specific details can be referenced in the facility's radiology CT exam operational policy. CONTRAST: 75 mL IV Isovue-370. FINDINGS: Lower chest: There are at least mild coronary artery calcifications. There is mild atelectasis. Liver: Liver is diffusely decreased in attenuation and enlarged, measuring 21.4 cm, compatible with h epatic steatosis. Gallbladder/biliary: Status post cholecystectomy. No intrahepatic or extrahepatic ductal dilation. Pancreas: There is mild to moderate atrophy. Spleen: Normal. Adrenals: There is a 2.1 cm x 1.5 right adrenal mass that has slowly increased in size over time, devaughn suring 1.8 x 1.0 cm in 2010. The left adrenal gland is normal. Kidneys/ureters/bladder: There are cortical cysts of the left kidney. There are too small to characte rize low attenuating lesions within both kidneys that statistically are likely to represent renal cys ts. There is no hydronephrosis. The ureters and the bladder are normal. GI/mesentery/peritoneal cavity: There is a small type I hiatal hernia. There are changes of gastric b ypass. There is a moderate to large amount of stool throughout colon. There is no bowel obstruction. There is no wall thickening or pericolonic stranding. The appendix is normal. There is sigmoid and de scending colon diverticulosis without diverticulitis. There is no intra-abdominal free air or free fl uid. Vessels: There is severe atherosclerotic disease without aneurysm. No dissection. 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 There is a femorofemoral bypass. Nodes: Normal. Pelvis: Normal. Bones/vertebra/soft tissues: Dense material at the ventral abdomen is compatible with prior ventral h ernia repair. There is stable depression of the anterior half of the T11 and T12 superior endplates. There is calcification of the T12-L1 disc. There is severe degenerative facet disease of the lower swathi mbar spine. There is stable density in the subcutaneous fat of the right ventral lower abdominal wall on image 97, potentially related to prior surgery. IMPRESSION: 1. Moderate to large stool burden. No obstruction. 2. Hepatic steatosis. It can progress to steatohepatitis and eventual cirrhosis. 3. Slowly enlarging right adrenal mass. Potentially this is a benign adenoma, given the slow growth, although Hounsfield units on noncontrast study of January 09, 2018 were not diagnostic. Report Dictated By: Leola Donnelly at 01/10/2018 7:27 AM Report E-Signed By: Leola Donnelly at 01/10/2018 7:43 AM WSN:[id number]
[2018-01-10] MEDS ORDERED: METO-734 PO (07:55)
[2018-01-10 08:00] VITALS: BP 134/79
== END 2018-01-10 08:15 | disposition home or self-care (01) ==
LOC: ER 05:36
DX: R11.2 Nausea with vomiting, unspecified (principal); R10.84 Generalized abdominal pain
CPT/HCPCS: 71045; 74177; 83605; 84484; 85025; 93005; 96361; 96374; 99284; J2550; J7030; Q9967; 82040; 82247; 82310; 82374; 82435; 82565; 82947; 84075; 84132; 84155; 84295; 84450; 84460; 84520

== ENCOUNTER → 2018-01-10 | Outpatient (CLI) | payer MEDICARE ==
[2016-04-21 13:01] VITALS: BMI 33.5
[~2018-01-10] MED LIST changes: +INSU100C14 SQ; +METO-734 PO
== END ==
LOC: AMB 05:01
PROVIDERS: ATTEND Nurse Practitioner
DX: R10.10 Upper abdominal pain, unspecified (principal); R11.0 Nausea; R09.02 Hypoxemia
CPT/HCPCS: A0425; A0427

== ENCOUNTER 2018-01-15 09:09 | Emergency (ER) | payer MEDICARE, MEDICAID ==
[2016-04-21 13:01] VITALS: Wt 99.9 kg
[~2018-01-15 09:09] MED LIST changes: -INSU100C14 SQ
--- NOTE | 2018-01-15 09:30 | ER Report ---
History and Physical Time Seen By MD: 09:29 Hx. of Stated Complaint: CHEST PAIN SINCE 0700 TODYA. (LIZETTE RODRIGUEZ DO) HPI/ROS CHIEF COMPLAINT: chest pain HISTORY OF PRESENT ILLNESS: Pt states at 7am started with left sided chest pain. pain comes and goes and is sharp. Lasts 3-5 minutes and improves but then will return. +sob. worse with breathing. no change with position. Pt stats he has had this pain before when he had a heart attack in 2000. no nausea. no cough. pt has cad, dm and htn for hx. pt does not take a daily asa because he states he is allergic to nsaids REVIEW OF SYSTEMS: Constitutional: No fever, no chills. Eyes: No discharge. ENT: No sore throat. Cardiovascular: + chest pain, no palpitations. Respiratory: No cough, + shortness of breath. Gastrointestinal: No abdominal pain, no vomiting. Genitourinary: No hematuria. Musculoskeletal: No back pain. Skin: No rashes. Neurological: No headache. (LIZETTE RODRIGUEZ DO) Allergies: Coded Allergies: naproxen (Verified Allergy, Severe, CHEST PAIN, RASH, 01/10/18) Penicillins (Verified Allergy, Mild, ITCHING, 01/10/18) Home Meds Active Scripts Insulin Aspart (NOVOLOG) 100 Unit/1 Ml Cartridge, 20 UNIT SQ TIDCF for 30 Days, #18 ML 0 Refills Prov:FREDDY GATICA MD 01/15/18 Lisinopril (LISINOPRIL) 5 Mg Tablet, 2.5 MG PO QDAY for 30 Days, #30 TAB 0 Refills Prov:FREDDY GATICA MD 01/15/18 Metoclopramide Hcl (REGLAN) 10 Mg Tablet, 10 MG PO Q6H for Nausea, #15 TAB 0 Refills Prov:FREDDY GATICA MD 01/10/18 Methocarbamol (ROBAXIN-750) 750 Mg Tablet, 1500 MG PO TID for Muscle Relaxant, # 15 TAB 0 Refills Prov:FREDDY GATICA MD 01/09/18 Hydrocodone Bit/Acetaminophen (HYDROCODON-ACETAMINOPHEN 5-325) 1 Each Tablet, 1 EACH PO Q4-6H Y for PAIN, #12 TAB 0 Refills TAKE ONE TABLET BY MOUTH EVERY 4-6 HOURS NEEDED FOR PAIN Prov:FREDDY GATICA MD 01/09/18 Simethicone (SIMETHICONE) 80 Mg Tab.chew, 80 MG PO QID for 7 Days, #28 TAB.CHEW Prov:FREDDY GATICA MD 05/21/17 Reported Medications Acetaminophen (TYLENOL EXTRA STRENGTH) 500 Mg Tablet, 1 TAB PO TID Y for PAIN, TAB 04/10/17 Lisinopril (LISINOPRIL) 2.5 Mg Tablet, 1 TAB PO QDAY 04/10/17 Insulin Detemir (Levemir Flextouch) 100 Unit/1 Ml Insuln.pen, 54 UNITS SUBQ BID 04/10/17 Cholecalciferol (Vitamin D3) (VITAMIN D) 10,000 Unit Capsule, 1 CAP PO DAILY, CAPSULE 04/10/17 Potassium Chloride (POTASSIUM CHLORIDE) 10 Meq Capsule.er, 1 CAP PO DAILY Y for DIARRHEA 04/10/17 Ferrous Sulfate, Dried (IRON) Unknown Strength Tablet.er, 65 MG PO BID 04/10/17 [place]-3 Fatty Acids/Fish Oil (FISH OIL 1,000 MG SOFTGEL) 1 Each Capsule, 1 EACH PO BID, CAPSULE 04/10/17 [place], Insulin Disposable (Bd Ultra-Fine Pen Needle) 1 Each Dis.needle, EACH 5XD, #100 04/10/17 Albuterol Sulfate 0.083% (ALBUTEROL SULFATE 0.083%) 2.5 Mg/3 Ml Vial.neb, 2.5 MG INH Q8H Y for WHEEZING, INH 04/10/17 Multivitamin (MEN'S MULTI-VITAMIN) 1 Each Tablet, 1 EACH PO DAILY 04/10/17 Allopurinol (ZYLOPRIM) 300 Mg Tablet, 1 TAB PO QDAY, TAB 04/10/17 Insulin Lispro (Humalog Kwikpen) 200 Unit/1 Ml Insuln.pen, 20 UNIT SQ TIDAC, #6 02/28/16 Albuterol Sulfate (Proventil Hfa) 6.7 Gm Aer.w.adap, 2 PUFF INH Q4H Y for WHEEZING, 0 Refills 09/07/11 Past Medical/Surgical History pmhx: cad, mi, asthma, dm, gout, htn, abdominal pain (LIZETTE RODRIGUEZ DO) Reviewed Nurses Notes: Yes Old Medical Records Reviewed: Yes (LAURORA,LIZETTE V DO) Hx Smoking: No (1PPDX 30 YEARS- QUIT 2000) Smoking Status: Former Smoker Exposure to Second Hand Smoke?: No Hx Substance Use Disorder: No Hx Alcohol Use: No (JENNIFER,LIZETTE V DO) Constitutional Vital Sign - Last 24 Hours 01/15/18 01/15/18 01/15/18 01/15/18 09:15 09:15 09:30 09:41 Temp 98.6 Pulse 87 86 84 Resp 16 18 21 B/P (MAP) 130/87 176/83 (114) Pulse Ox 90 91 86 O2 Delivery Room Air O2 Flow Rate 1.0 01/15/18 01/15/18 01/15/18 01/15/18 09:45 09:50 09:55 10:00 Pulse 78 79 86 87 Resp 22 21 18 19 B/P (MAP) 170/90 (116) 160/88 (112) Pulse Ox 89 91 89 01/15/18 01/15/18 01/15/18 01/15/18 10:10 10:20 10:40 10:50 Pulse 87 ??? Resp 11 B/P (MAP) 151/81 (104) 162/86 (111) 153/76 (101) 160/76 (104) Pulse Ox 89 92 01/15/18 01/15/18 01/15/18 01/15/18 11:00 11:10 11:20 11:30 Pulse 76 76 76 73 Resp 18 19 19 15 B/P (MAP) 160/90 (113) 164/76 (105) 156/73 (100) 148/74 (98) Pulse Ox 92 92 91 91 01/15/18 01/15/18 01/15/18 01/15/18 12:00 12:10 12:15 12:20 Pulse 83 75 Resp 15 B/P (MAP) 155/64 (94) 158/72 (100) 160/75 (103) Pulse Ox 91 01/15/18 01/15/18 01/15/18 01/15/18 12:30 12:40 12:45 12:50 Pulse 73 74 Resp 16 10 B/P (MAP) 154/76 (102) 160/85 (110) 170/72 (104) Pulse Ox 91 90 01/15/18 01/15/18 01/15/18 01/15/18 13:00 13:10 13:15 13:20 Pulse 79 Resp 21 8 B/P (MAP) 171/79 (109) 188/90 (122) 160/80 (106) Pulse Ox 91 93 (FREDDY GATICA MD) Physical Exam General Appearance: The patient is alert, has no immediate need for airway protection and no signs of toxicity. Eyes: Pupils equal and round no pallor or injection, EOMI ENT: no pharyngeal erythema or exudates, Mucous membranes are moist, TM are nl b/l Respiratory: There are no retractions, lungs are clear to auscultation. Cardiovascular: Regular rate and rhythm. pulses are equal and symmetrical Gastrointestinal: Abdomen is soft and non tender, no masses, bowel sounds normal, no guarding, no rigidity or rebound Neurological: Cranial nerves II-XII grossly intact, no sensory or motor loss Skin: Warm and dry, no rashes. Musculoskeletal: Neck is supple non tender, no vertebral tenderness Extremities are nontender, non swollen and have full range of motion. DIFFERENTIAL DIAGNOSIS: After history and physical exam differential diagnosis was considered for acs, mi, gerd, pe, esophageal spasm (LAURORA,LIZETTE V DO) Medical Decision Making Data Points Result Diagram: 01/15/18 0951 01/15/18 0951 Laboratory Hematology Test 01/15/18 09:51 01/15/18 12:12 Red Blood Count 4.55 M/uL (4.00-5.60) Mean Corpuscular Volume 89.1 fL (80.0-96.0) Mean Corpuscular Hemoglobin 30.3 pg (26.0-33.0) Mean Corpuscular Hemoglobin Concent 34.0 g/dL (32.0-36.0) Red Cell Distribution Width 14.7 % (11.5-14.5) Mean Platelet Volume 7.6 fL (7.2-11.1) Neutrophils (%) (Auto) 78.7 % (39.4-72.5) Lymphocytes (%) (Auto) 11.7 % (17.6-49.6) Monocytes (%) (Auto) 6.9 % (4.1-12.4) Eosinophils (%) (Auto) 1.5 % (0.4-6.7) Basophils (%) (Auto) 1.2 % (0.3-1.4) Nucleated RBC Relative Count (auto) 0.1 /100WBC Neutrophils # (Auto) 9.2 K/uL (2.0-7.4) Lymphocytes # (Auto) 1.4 K/uL (1.3-3.6) Monocytes # (Auto) 0.8 K/uL (0.3-1.0) Eosinophils # (Auto) 0.2 K/uL (0.0-0.5) Basophils # (Auto) 0.1 K/uL (0.0-0.1) Nucleated RBC Absolute Count (auto) 0.01 K/uL Prothrombin Time 13.5 seconds (12.0-14.4) Prothromb Time International Ratio 1.03 Activated Partial Thromboplast Time 27 seconds (23-35) D-Dimer Quantitative (PE/DVT) 0.35 ug/ml (0-0.50) Sodium Level 138 mmol/L (137-145) Potassium Level 4.1 mmol/L (3.5-5.0) Chloride Level 104 mmol/L (98-107) Carbon Dioxide Level 24 mmol/L (22-30) Blood Urea Nitrogen 10 mg/dl (9-21) Creatinine 0.80 mg/dl (0.66-1.25) Glomerular Filtration Rate Calc > 60.0 Random Glucose 187 mg/dl (75-110) Calcium Level 7.7 mg/dl (8.4-10.2) Total Bilirubin 0.3 mg/dl (0.2-1.3) Aspartate Amino Transf (AST/SGOT) 23 U/L (0-35) Alanine Aminotransferase (ALT/SGPT) 31 U/L (0-56) Alkaline Phosphatase 98 U/L (0-126) Total Protein 6.4 gm/dl (6.3-8.2) Albumin 3.5 g/dl (3.5-5.0) Troponin I < 0.012 ng/ml Chemistry Test 01/15/18 09:51 01/15/18 12:12 White Blood Count 11.7 k/uL (4.5-11.0) Red Blood Count 4.55 M/uL (4.00-5.60) Hemoglobin 13.8 g/dL (14.0-18.0) Hematocrit 40.5 % (42.0-52.0) Mean Corpuscular Volume 89.1 fL (80.0-96.0) Mean Corpuscular Hemoglobin 30.3 pg (26.0-33.0) Mean Corpuscular Hemoglobin Concent 34.0 g/dL (32.0-36.0) Red Cell Distribution Width 14.7 % (11.5-14.5) Platelet Count 270 K/uL (150-450) Mean Platelet Volume 7.6 fL (7.2-11.1) Neutrophils (%) (Auto) 78.7 % (39.4-72.5) Lymphocytes (%) (Auto) 11.7 % (17.6-49.6) Monocytes (%) (Auto) 6.9 % (4.1-12.4) Eosinophils (%) (Auto) 1.5 % (0.4-6.7) Basophils (%) (Auto) 1.2 % (0.3-1.4) Nucleated RBC Relative Count (auto) 0.1 /100WBC Neutrophils # (Auto) 9.2 K/uL (2.0-7.4) Lymphocytes # (Auto) 1.4 K/uL (1.3-3.6) Monocytes # (Auto) 0.8 K/uL (0.3-1.0) Eosinophils # (Auto) 0.2 K/uL (0.0-0.5) Basophils # (Auto) 0.1 K/uL (0.0-0.1) Nucleated RBC Absolute Count (auto) 0.01 K/uL Prothrombin Time 13.5 seconds (12.0-14.4) Prothromb Time International Ratio 1.03 Activated Partial Thromboplast Time 27 seconds (23-35) D-Dimer Quantitative (PE/DVT) 0.35 ug/ml (0-0.50) Glomerular Filtration Rate Calc > 60.0 Calcium Level 7.7 mg/dl (8.4-10.2) Total Bilirubin 0.3 mg/dl (0.2-1.3) Aspartate Amino Transf (AST/SGOT) 23 U/L (0-35) Alanine Aminotransferase (ALT/SGPT) 31 U/L (0-56) Alkaline Phosphatase 98 U/L (0-126) Total Protein 6.4 gm/dl (6.3-8.2) Albumin 3.5 g/dl (3.5-5.0) Troponin I < 0.012 ng/ml Coagulation Test 01/15/18 09:51 Prothrombin Time 13.5 seconds Prothromb Time International Ratio 1.03 Activated Partial Thromboplast Time 27 seconds D-Dimer Quantitative (PE/DVT) 0.35 ug/ml (FREDDY GATICA MD) EKG/Imaging EKG Interpretation nsr @ 75 wtih no acute changes (LIZETTE RODRIGUEZ DO) ED Course/Re-evaluation Clinical Indication for ER IV: IV Access ED Course 01/15/2018 10:07:06 am PTs pain not changed after 3 nitro. (LIZETTE RODRIGUEZ DO) ED Course 01/15/2018 1:02:50 pm repeat troponin is negative. Patient received relief of chest discomfort and burning with 30 mL Maalox. Plan at this time will be discharged home with diagnosis of atypical chest pain Decision to Disposition Date: Jan 15, 2018 Decision to Disposition Time: 13:03 (FREDDY GATICA MD) Depart Departure Latest Vital Signs Vital Signs Date Time Temp Pulse Resp B/P (MAP) Pulse Ox O2 Delivery O2 Flow Rate FiO2 01/15/18 13:20 160/80 (106) 01/15/18 13:15 79 8 93 01/15/18 09:41 1.0 01/15/18 09:15 98.6 Room Air (FREDDY GATICA MD) Impression: Primary Impression: Atypical chest pain Condition: Improved Disposition: HOME OR SELF-CARE Referrals: JOSELUIS REYNOLDS (PCP) 2 Days if symptoms persist New Scripts Insulin Aspart (NOVOLOG) 100 Unit/1 Ml Cartridge 20 UNIT SQ TIDCF for 30 Days, #18 ML 0 Refills Prov: FREDDY GATICA MD 01/15/18 Lisinopril (LISINOPRIL) 5 Mg Tablet 2.5 MG PO QDAY for 30 Days, #30 TAB 0 Refills Prov: FREDDY GATICA MD 01/15/18 Patient Instructions: Noncardiac Chest Pain (ED) LIZETTE RODRIGUEZ DO Jan 15, 2018 09:30 FREDDY GATICA MD Jan 15, 2018 13:06
--- NOTE | 2018-01-15 09:37 | EKG ---
FACILITY: [facility] PATIENT NAME: BRETT BRADLEY : [id number] MR: [id number] V: [id number] EXAM DATE: ORDERING PHYSICIAN: LIZETTE RODRIGUEZ TECHNOLOGIST: LEILANI Test Reason : CP Blood Pressure : / mmHG Vent. Rate : 076 BPM Atrial Rate : 076 BPM P-R Int : 168 ms QRS Dur : 090 ms QT Int : 412 ms P-R-T Axes : 064 078 071 degrees QTc Int : 463 ms Normal sinus rhythm Normal ECG When compared with ECG of 10-JAN-2018 06:03, No significant change was found Confirmed by HERBERT VALE ([id number]) on 01/15/2018 2:18:32 PM Referred By: Confirmed By:HERBERT VALE
[2018-01-15] MEDS: NITROGLYCERIN 0.4 MG SUBL SL SCH ×3 (09:52→10:04)
[2018-01-15 09:59] LABS: PLATELET COUNT, AUTOMATED 270 K/uL (150-450)
[2018-01-15 10:13] LABS: INR 1.03
--- NOTE | 2018-01-15 10:51 | RADIOLOGY IMAGING REPORT ---
FACILITY: PATIENT NAME: Nomi Whiting : 1945 MR: [id number] V: [id number] EXAM DATE: ORDERING PHYSICIAN: LIZETTE RODRIGUEZ TECHNOLOGIST: Location: [facility] Patient: Nomi Whiting : 1945 Visit/Account:[id number] Date of Sevice: 01/15/2018 Exam type: CHEST PA AND LAT History: Chest pain, COPD Comparison: January 10, 2018. Findings: There is a small amount linear stranding left lung base similar to the prior study which may represen t a small amount scarring versus atelectasis. There is no evidence of acute appearing pulmonary infi ltrates, pneumothorax or pneumomediastinum. The cardiac silhouette is normal in size. There are old bilateral rib fractures present. IMPRESSION: 1. Small amount linear scarring versus atelectasis left lung base appears similar to the prior study No evidence of acute pulmonary consolidation Report Dictated By: Shana Orourke MD at 01/15/2018 10:45 AM Report E-Signed By: Shana Orourke MD at 01/15/2018 10:47 AM WSN:[id number]
[2018-01-15] MEDS ORDERED: MAG HYD/AL HYD/SIMETH 30ML UDC PO ONE (11:00)
[2018-01-15 13:20] VITALS: BP 160/80
[2018-01-15] MEDS ORDERED: INSU100C14 SQ (13:46)
[2018-01-15] MEDS ORDERED: LISI5TAB25 PO (13:46)
--- NOTE | 2018-01-15 15:53 | Transitional Care Management ---
TCM Discharge Criteria Transitional Care Comment: 01/15 His listed phone number is not in service, , His son's phone has a busy signal, , and his grand daughter's listed phone number is the same as his, which is not in service. I will try again another time. LIZABETH WILLIAMSON Jan 15, 2018 15:53
== END 2018-01-15 13:54 | disposition home or self-care (01) ==
LOC: ER 09:14
DX: R07.89 Other chest pain (principal)
CPT/HCPCS: 71046; 84484; 85025; 85379; 85610; 85730; 93005; 99284; A9270; 82040; 82247; 82310; 82374; 82435; 82565; 82947; 84075; 84132; 84155; 84295; 84450; 84460; 84520

== ENCOUNTER → 2018-01-15 | Outpatient (CLI) | payer MEDICARE ==
[2016-04-21 13:01] VITALS: BMI 33.5
[~2018-01-15] MED LIST changes: +INSU100C14 SQ; +METO-734 PO
== END ==
LOC: AMB 08:42
PROVIDERS: ATTEND Nurse Practitioner
DX: R07.89 Other chest pain (principal); R06.00 Dyspnea, unspecified; R10.12 Left upper quadrant pain
CPT/HCPCS: A0425; A0427

== ENCOUNTER → 2018-01-29 | Outpatient (CLI) | payer MEDICARE, MEDICAID ==
[2016-04-21 13:01] VITALS: BMI 33.5
[~2018-01-29] MED LIST changes: +CHOL200022; +CHOL500025 PO; +FERR-53 PO; +INSU100C14 SQ; +INSU100I28 SQ; +SULF-198 PO
== END ==
LOC: LAB 08:48
PROVIDERS: ATTEND Emergency Medicine
DX: Z12.5 Encounter for screening for malignant neoplasm of prostate (principal); E11.9 Type 2 diabetes mellitus without complications; D35.00 Benign neoplasm of unspecified adrenal gland; E53.8 Deficiency of other specified B group vitamins; E55.9 Vitamin D deficiency, unspecified
CPT/HCPCS: 82306; 82607; 83036; G0103; 36415; 84153

== ENCOUNTER 2018-02-26 03:29 | Day surgery (SDC) | payer MEDICAID, MEDICARE ==
[2016-04-21 13:01] VITALS: Ht 172.7 cm; Wt 98.4 kg
[~2018-02-26] VITALS: Ht 172.7 cm; Wt 98.4 kg
[2018-02-26] MEDS ORDERED: FAMOTIDINE 20 MG TAB PO ONE (09:40)
[2018-02-26] MEDS ORDERED: MIDAZOLAM 2 MG/2 ML VIAL IVP PRN (09:40)
[2018-02-26] MEDS ORDERED: LIDOCAINE/SOD BICARB 8.4% SYR ID ONE (09:40)
[2018-02-26] MEDS ORDERED: NORMOSOL R SOLN(*) 1000 ML BAG 1,000 ML IV PRN (09:40)
[2018-02-26 11:35] VITALS: BP 174/81
[2018-02-26] MEDS ORDERED: PROPOFOL EMUL(*) 10MG/ML 20 ML 40 ML ONE (12:34)
[2018-02-26] MEDS ORDERED: LIDOCAINE MPF 1% 5 ML VIAL ONE (12:34)
[2018-02-26] MEDS ORDERED: KETAMINE HCL 200 MG/20 ML MDV ONE (12:38)
[2018-02-26] MEDS ORDERED: LIDO/EPI 1% MDV 1:100,000 20ML INFIL ONE (13:47)
[2018-02-26] MEDS ORDERED: BACITRACIN OINT 0.9 GM PKT TP ONE ×2 (14:12→14:37)
[2018-02-26] MEDS ORDERED: NEOMYCIN/POLYMYX/BACITR OINT 1 PACKET TP ONE ×2 (14:22→15:44)
[2018-02-26] MEDS ORDERED: PROPOFOL EMUL(*) 10MG/ML 20 ML 20 ML ONE (14:45)
[2018-02-26] MEDS ORDERED: PANT40TA65 PO (15:33)
--- NOTE | 2018-02-26 15:34 | Short(Outpt) Discharge Summary ---
Discharge Summary Reason for Hosp/Final Diag: (1) Dysphagia Status: Chronic Hospital Course & Plan: EGD with biopsies, Colonoscopy with biopsies, and excision of 2 skin lesions completed without problems. (2) Diarrhea Status: Chronic (3) Skin lesion Status: Chronic (4) Abdominal pain Status: Chronic Departure Discharge to: Home, Self Care Discharge Instructions Home Meds Active Scripts Peg/Electrolytes (GOLYTELY SOLUTION) 4,000 Ml Soln, 1 GAL PO ONCE, #1 GAL 0 Refills Prov:HERBERT FELIZ MD 02/09/18 Lisinopril (LISINOPRIL) 5 Mg Tablet, 5 MG PO QDAY, #90 TAB 3 Refills Prov:KIKI CORMIER MD 01/29/18 Insulin Lispro 100 Un/Ml Pen (HUMALOG 3 ML PEN) 100 Unit/1 Ml Insuln.pen, 20 UNIT SQ TID, #2 BOX Prov:KIKI CORMIER MD 01/28/18 Insulin Detemir 100 UN/ML PEN (Levemir Flextouch) 100 Unit/1 Ml Insuln.pen, 40 UNITS SUBQ BID, #2 BOX Prov:KIKI CORMIER MD 01/28/18 Reported Medications Cholecalciferol (Vitamin D3) (VITAMIN D3) 5,000 Unit Tablet, 5000 UNIT PO DAILY 01/29/18 Ferrous Sulfate (FERROUS SULFATE) 325 Mg Tablet, 325 MG PO DAILY 01/29/18 Acetaminophen (TYLENOL EXTRA STRENGTH) 500 Mg Tablet, 1 TAB PO TID Y for PAIN, TAB 04/10/17 [place]-3 Fatty Acids/Fish Oil (FISH OIL 1,000 MG SOFTGEL) 1 Each Capsule, 1 EACH PO BID, CAPSULE 04/10/17 [place], Insulin Disposable (Bd Ultra-Fine Pen Needle) 1 Each Dis.needle, EACH 5XD, #100 04/10/17 Albuterol Sulfate 0.083% (ALBUTEROL SULFATE 0.083%) 2.5 Mg/3 Ml Vial.neb, 2.5 MG INH Q8H Y for WHEEZING, INH 04/10/17 Allopurinol (ZYLOPRIM) 300 Mg Tablet, 1 TAB PO QDAY, TAB 04/10/17 Albuterol Sulfate (Proventil Hfa) 6.7 Gm Aer.w.adap, 2 PUFF INH Q4H Y for WHEEZING, 0 Refills 09/07/11 Discontinued Scripts Sulfamethoxazole/Trimet 800-160 Mg Tab (BACTRIM DS TABLET) 1 Each Tablet, 1 TAB PO Q12H, #14 TAB Prov:KIKI CORMIER MD 01/29/18 Lisinopril (LISINOPRIL) 5 Mg Tablet, 1 TAB PO QDAY for 30 Days, #30 TAB 0 Refills Prov:KIKI CORMIER MD 01/29/18 Follow up Referrals: General Surgery - 03/11/18 @ Surgery, General with Herbert Feliz Md You have a follow up appointment with Dr. Feliz on Sunday, March 11, 2018, at 4:15pm. Diet: Diabetic Activity: As Tolerated Special Instructions: Avoid any medications that can thin your blood such as aspirin, ibuprofen, motrin, advil, aleve, naproxen, or naprosyn, until Friday, March 02, 2018 to avoid bleeding from your biopsy sites. You have some areas of inflammation and erosions in your lower esophagus which I biopsied. I am going to start you on a stomach medication to try and get these to heal. The medication is called pantoprazole and I'd like for you to take 1 tablet on an empty stomach every morning and wait 30 minutes before eating. Problem Qualifiers (1) Dysphagia: Dysphagia type: esophageal phase Qualified Codes: R13.10 - Dysphagia, unspecified (2) Diarrhea: Diarrhea type: unspecified type Qualified Codes: R19.7 - Diarrhea, unspecified (3) Abdominal pain: Abdominal location: generalized Qualified Codes: R10.84 - Generalized abdominal pain HERBERT FELIZ MD February 26, 2018 15:34
--- NOTE | 2018-02-26 15:43 | Post Operative Progress Note ---
Post Operative Progress Note Date: February 26, 2018 Time: 15:35 Surgeon: Bacilio Dictation number: [id number] Anesthesia: TIVA by Dr. Denise Pre-Op Diagnosis: Dysphagia Diarrhea Abdominal pain Suspicous pigmented skin lesions Post-Op Diagnosis: ARMINDA Esophageal erosions Findings: Distal esophageal erosions at GE junction and for 2 cm proximal to GE junction Procedure(s): Excision of skin lesion, chin Excision of skin lesion, back EGD with biopsy Colonoscopy with biopsy Specimen Removed:(May be N/A): 1) Skin lesion, chin 2) Skin lesion, back 3) Jejunum 4) Pyloritek 5) GE junction 6) Random colon Complications: None Fluids: See anesthesia record Estimated Blood Loss: Minimal Date OP Note Dictated: February 26, 2018 Time OP Note Dictated: 15:37 HERBERT FELIZ MD February 26, 2018 15:43
[2018-02-26 16:00] VITALS: BP 151/92
[2018-02-26 16:15] VITALS: BP 176/81
[2018-02-26 16:17] VITALS: BP 166/72
--- NOTE | 2018-02-26 19:43 | OPERATIVE REPORT 1 ---
EVENT DATE: February 26, 2018 SURGEON: Danny Ribera MD ANESTHESIOLOGIST: Dragan Alatorre MD ANESTHESIA: TIVA. PREOPERATIVE DIAGNOSES 1. Skin lesion, chin. 2. Skin lesion, back. 3. Dysphagia. 4. Abdominal pain. 5. Diarrhea. POSTOPERATIVE DIAGNOSES 1. Skin lesion, chin. 2. Skin lesion, back. 3. Dysphagia. 4. Abdominal pain. 5. Diarrhea. 6. Esophageal erosions. PROCEDURES PERFORMED 1. EGD. 2. Colonoscopy. 3. Removal of skin lesion, chin. 4. Removal of skin lesion, back. COMPLICATIONS None. CONDITION Stable. BLOOD LOSS None. SPECIMENS 1. Skin lesion, chin. 2. Skin lesion, back. 3. Jejunum. 4. PyloriTek from gastric antrum. 5. GE junction. 6. Random colon. INDICATIONS This is a 72-year-old gentleman who presented to my office with chronic abdominal pain, nausea, dysphagia, and diarrhea. He also had a couple skin lesions that he wanted to have removed. He provided consent to evaluate his GI symptoms with an EGD and colonoscopy, as well as removing the two skin lesions of concern. DESCRIPTION OF PROCEDURE The patient was brought to the operating room. With him in a supine position, TIVA was administered, and his chin was prepped and draped in a sterile fashion. Timeout was completed, and I injected the skin around the lesion with 1% lidocaine with epinephrine. I made a transversely oriented, 1 cm long x 8 mm wide elliptical incision to encompass the lesion with grossly negative margins. I dissected down through the dermis and subcutaneous fat, undermined the ellipse, and passed the specimen off the field. The wound was made hemostatic with pressure and closed with running 5-0 Prolene sutures. The skin was cleaned, dried, and I applied bacitracin antibiotic ointment to the incision , followed by a Band-Aid. He was then placed in the left lateral decubitus position, and I prepped and draped the skin around his back and anesthetized the skin with 1% lidocaine with epinephrine. I made a transversely oriented, 1 cm long x 8 mm wide elliptical incision to encompass this lesion and dissected through the dermis and subcutaneous fat, undermined the ellipse, and passed it off the field. This wound was made hemostatic with pressure and closed with running 3-0 nylon sutures. I then cleaned and dried the skin and placed bacitracin antibiotic ointment over the incision and sutures and covered it with a sterile surgical dressing. I then moved around to by his face, and a bite block was inserted. Endoscope was tested to ensure it was completely functional and inserted into his mouth through the bite block. I advanced the scope into the esophagus with no problems and advanced it through the gastric pouch and into the jejunum. I took four samples of jejunum at various levels and sent them for pathologic analysis to rule out villous blunting. I saw both the blind end and the Celso limb of the jejunum, and it all appeared normal. The gastrojejunostomy was wide open, and there were no ulcers or inflammation. I took three samples of the stomach and sent them for PyloriTek. In the distal esophagus right at the GE junction, there appeared to be some chronic inflammation with streaks of erosions. I took several samples of these. I then withdrew the scope through the patient's esophagus. No other abnormalities. The larynx so far as well as I could see it appeared unremarkable. The scope was withdrawn from his body. EGD was taken down, and colonoscope was set up and tested to ensure it was completely functional. Digital rectal exam was completed, which was unremarkable. The colonoscope was inserted into his rectum through his anus and advanced all the way through to the cecum, but I could not intubate the terminal ileum. I took random biopsies throughout his colon, including one in his rectum. I did not find any other abnormalities throughout his colon. The prep was excellent. Withdrawal time was 12 minutes. There were no other polyps , inflammatory changes, or cancerous-looking lesions. The scope was withdrawn from the patient's body. He was awakened and transported to recovery room in stable condition. [facility]
== END 2018-02-26 16:00 | disposition home or self-care (01) ==
LOC: OR 03:29
PROVIDERS: ATTEND Surgery
DX: R13.10 Dysphagia, unspecified (principal); R19.7 Diarrhea, unspecified; K22.10 Ulcer of esophagus without bleeding; Q82.8 Other specified congenital malformations of skin; L72.0 Epidermal cyst
CPT/HCPCS: 00811; 11401; 11441; 36416; 43239; 45380; 82948; 87077; 88305; 88313; A9270; J2001; J2704; J3490; C9399

== ENCOUNTER 2018-03-30 13:46 | Emergency (ER) | payer MEDICARE, MEDICAID ==
[2016-04-21 13:01] VITALS: Wt 98.6 kg
--- NOTE | 2018-03-30 13:52 | ER Report ---
History and Physical Time Seen By MD: 13:55 HPI/ROS This is a 72-year-old male with a history of diabetes type 2. He called the paramedics today after a blood sugar reading at home with 400. The paramedics arrived shortly after the phone call their reading was in the 200s. The patient had just taken his Regimen of NovoLog prior to his 400 reading and prior to the paramedics arriving. He said that his sugars have been running in the 300s and 400s for the past month. He did follow up with his primary care doctor approximately 3 weeks ago, and his insulin regimen was not changed. He said he assumes his glucometer is accurate, because it is almost brand-new. He denies any pain or symptoms of an acute illness or infection. He has no other complaints other than the blood sugar reading 400 home. Remainder of the 14 system rev: Yes Allergies: Coded Allergies: naproxen (Verified Allergy, Severe, CHEST PAIN, RASH, 03/30/18) Penicillins (Verified Allergy, Mild, ITCHING, 03/30/18) Home Meds Active Scripts Pantoprazole Sodium (PANTOPRAZOLE SODIUM) 40 Mg Tablet.dr, 1 TAB PO QDAY, #60 TAB.SR 3 Refills Prov:HERBERT FELIZ MD 02/26/18 Lisinopril (LISINOPRIL) 5 Mg Tablet, 5 MG PO QDAY, #90 TAB 3 Refills Prov:KIKI CORMIER MD 01/29/18 Insulin Lispro 100 Un/Ml Pen (HUMALOG 3 ML PEN) 100 Unit/1 Ml Insuln.pen, 20 UNIT SQ TID, #2 BOX Prov:KIKI CORMIER MD 01/28/18 Insulin Detemir 100 UN/ML PEN (Levemir Flextouch) 100 Unit/1 Ml Insuln.pen, 40 UNITS SUBQ BID, #2 BOX Prov:KIKI CORMIER MD 01/28/18 Reported Medications Cholecalciferol (Vitamin D3) (VITAMIN D3) 5,000 Unit Tablet, 5000 UNIT PO DAILY 01/29/18 Ferrous Sulfate (FERROUS SULFATE) 325 Mg Tablet, 325 MG PO DAILY 01/29/18 Acetaminophen (TYLENOL EXTRA STRENGTH) 500 Mg Tablet, 1 TAB PO TID Y for PAIN, TAB 04/10/17 [place]-3 Fatty Acids/Fish Oil (FISH OIL 1,000 MG SOFTGEL) 1 Each Capsule, 1 EACH PO BID, CAPSULE 04/10/17 [place], Insulin Disposable (Bd Ultra-Fine Pen Needle) 1 Each Dis.needle, EACH 5XD, #100 04/10/17 Albuterol Sulfate 0.083% (ALBUTEROL SULFATE 0.083%) 2.5 Mg/3 Ml Vial.neb, 2.5 MG INH Q8H Y for WHEEZING, INH 04/10/17 Allopurinol (ZYLOPRIM) 300 Mg Tablet, 1 TAB PO QDAY, TAB 04/10/17 Albuterol Sulfate (Proventil Hfa) 6.7 Gm Aer.w.adap, 2 PUFF INH Q4H Y for WHEEZING, 0 Refills 09/07/11 Reviewed Nurses Notes: Yes Old Medical Records Reviewed: Yes Hx Smoking: Yes (1PPDX 30 YEARS- QUIT 2000) Smoking Status: Former Smoker Exposure to Second Hand Smoke?: No Hx Substance Use Disorder: No Hx Alcohol Use: No Constitutional Vital Sign - Last 24 Hours 03/30/18 03/30/18 03/30/18 03/30/18 13:51 14:00 14:15 14:30 Temp 98.8 Pulse 80 73 73 71 Resp 18 B/P (MAP) 170/89 153/70 (97) 148/74 (98) 156/73 (100) Pulse Ox 96 96 96 97 O2 Delivery Nasal Cannula 03/30/18 03/30/18 03/30/18 14:45 15:00 15:15 Pulse 70 74 73 B/P (MAP) 162/73 (102) 151/83 (105) 157/82 (107) Pulse Ox 96 95 96 Physical Exam General Appearance: The patient is alert, has no immediate need for airway protection and no current signs of toxicity. Eyes: Pupils equal and round no injection. Respiratory: Chest is non tender, lungs are clear to auscultation. Cardiac: regular rate and rhythm Gastrointestinal: Abdomen is soft and non tender, no masses, bowel sounds normal. Extremities have full range of motion and are non tender. Skin: No rashes or lesions. DIFFERENTIAL DIAGNOSIS: After history and physical exam differential diagnosis was considered for infection, VT, noncompliance, change in diet, glucometer failure Medical Decision Making ED Course/Re-evaluation ED Course 72-year-old male with type II diabetes with sugars in the 300s and 400 for the past month at least he states. I am unsure is why he did decision to call the paramedics today given that these readings have been ongoing for weeks. He has no symptoms of an infection, no chest pain, no shortness of breath, no abdominal pain or nausea vomiting or diarrhea. The paramedics got a reading in the low 200s, and we had 2 similar readings in the emergency department. Given that his sugars are in the 200s and this is been ongoing for 1 month, I do not think he needs a further workup at this time. I recommended that he closely watch what he eats, and that he follows up with Dr. Laws this week to discuss whether or not he needs a change in his insulin regimen. Decision to Disposition Date: Mar 30, 2018 Decision to Disposition Time: 15:51 Depart Departure Latest Vital Signs Vital Signs Date Time Temp Pulse Resp B/P (MAP) Pulse Ox O2 Delivery O2 Flow Rate FiO2 03/30/18 15:15 73 157/82 (107) 96 03/30/18 13:51 98.8 18 Nasal Cannula Impression: Primary Impression: Borderline hyperglycemia Condition: Improved Disposition: HOME OR SELF-CARE Referrals: KIKI CORMIER MD (PCP) Patient Instructions: Diabetic Hyperglycemia (ED) CHELSEY ROMERO MD Mar 30, 2018 13:52
[2018-03-30] MEDS ORDERED: EMS NS 0.9%(*) 1000 ML BAG 1,000 ML IV ONE (14:05)
[2018-03-30 15:15] VITALS: BP 157/82
== END 2018-03-30 16:11 | disposition home or self-care (01) ==
LOC: ER 13:50
DX: E11.65 Type 2 diabetes mellitus with hyperglycemia (principal)
CPT/HCPCS: 36416; 82948; 96360; 99283

== ENCOUNTER → 2018-03-30 | Outpatient (CLI) | payer MEDICARE ==
[2016-04-21 13:01] VITALS: BMI 33.5
[~2018-03-30] MED LIST changes: +PANT40TA65 PO
== END ==
LOC: AMB 13:32
PROVIDERS: ATTEND Nurse Practitioner
DX: E11.65 Type 2 diabetes mellitus with hyperglycemia (principal); R53.81 Other malaise
CPT/HCPCS: A0425; A0427

== ENCOUNTER 2018-08-06 09:24 | Emergency (ER) | payer MEDICARE, MEDICAID ==
[2016-04-21 13:01] VITALS: Wt 99.8 kg
[~2018-08-06 09:24] MED LIST changes: -CHOL200022; +CHOL200085; -HYDR-4305 PO; -HYDR-4309 PO; +HYDR-627 PO; +HYDR-653 PO
[2018-08-06 09:31] VITALS: BP 193/92
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
[2018-08-06] MEDS ORDERED: TETRACAIN/EPI/LIDO GEL 3ML SYR TP ONE (09:50)
[2018-08-06] MEDS ORDERED: DIPHTH/TETANUS/ACEL. PERTUSSIS IM ONLY ONE (09:50)
== END 2018-08-06 10:56 | disposition home or self-care (01) ==
LOC: ER 09:41
DX: S01.81XA Laceration without foreign body of other part of head, initial encounter (principal); W20.8XXA Other cause of strike by thrown, projected or falling object, initial encounter
CPT/HCPCS: 90471; 90715; 99283

== ENCOUNTER 2018-08-10 06:19 | Emergency (ER) | payer MEDICARE, MEDICAID ==
[2016-04-21 13:01] VITALS: Wt 99.8 kg
--- NOTE | 2018-08-10 06:19 | ER Report ---
History and Physical Time Seen By MD: 06:18 (SKYLER CHERRY DO) Time Seen By MD: 08:06 (CHELSEY ROMERO MD) HPI/ROS CHIEF COMPLAINT: Dyspnea HISTORY OF PRESENT ILLNESS: 73-year-old male woke up this morning short of breath. He retired to bed in his usual state of health. Patient has a history of COPD/asthma, coronary artery disease. Type II diabetes, insulin-dependent. EMS checked his glucose at 237. Patient was grossly short of breath with air hunger. EMS applied O2 at 12 L and administered albuterol nebulizer in route with significant improvement of his breathing. Patient denies recent URI cough sore throat fever or chills. Patient denies leg swelling or calf pain. Patient wears O2 at night. He is supposed to wearing CPAP and is noncompliant. REVIEW OF SYSTEMS: Respiratory: As above Cardiovascular: No chest pain, no palpitations. Gastrointestinal: No vomiting, no abdominal pain. Musculoskeletal: No back pain. (SKYLER CHERRY DO) Allergies: Coded Allergies: naproxen (Verified Allergy, Severe, CHEST PAIN, RASH, 08/10/18) Penicillins (Verified Allergy, Mild, ITCHING, 08/10/18) Home Meds Active Scripts Insulin Detemir 100 UN/ML PEN (Levemir Flextouch) 100 Unit/1 Ml Insuln.pen, 40 UNITS SUBQ BID, #2 BOX 0 Refills Prov:WILMER NGUYEN APRN [employer]NT-C 07/17/18 Insulin Lispro 100 Un/Ml Pen (HUMALOG 3 ML PEN) 100 Unit/1 Ml Insuln.pen, 20 UNIT SQ TID, #2 BOX 1 Refill Prov:KIKI CORMIER MD 04/02/18 Pantoprazole Sodium (PANTOPRAZOLE SODIUM) 40 Mg Tablet.dr, 1 TAB PO QDAY, #60 TAB.SR 3 Refills Prov:HERBERT FELIZ MD 02/26/18 Lisinopril (LISINOPRIL) 5 Mg Tablet, 5 MG PO QDAY, #90 TAB 3 Refills Prov:KIKI CORMIER MD 01/29/18 Reported Medications Cholecalciferol (Vitamin D3) (VITAMIN D3) 5,000 Unit Tablet, 5000 UNIT PO DAILY 01/29/18 Ferrous Sulfate (FERROUS SULFATE) 325 Mg Tablet, 325 MG PO DAILY 01/29/18 Acetaminophen (TYLENOL EXTRA STRENGTH) 500 Mg Tablet, 1 TAB PO TID PRN for PAIN, TAB 04/10/17 [place]-3 Fatty Acids/Fish Oil (FISH OIL 1,000 MG SOFTGEL) 1 Each Capsule, 1 EACH PO BID, CAPSULE 04/10/17 [place], Insulin Disposable (Bd Ultra-Fine Pen Needle) 1 Each Dis.needle, EACH 5XD, #100 04/10/17 Albuterol Sulfate 0.083% (ALBUTEROL SULFATE 0.083%) 2.5 Mg/3 Ml Vial.neb, 2.5 MG INH Q8H PRN for WHEEZING, INH 04/10/17 Allopurinol (ZYLOPRIM) 300 Mg Tablet, 1 TAB PO QDAY, TAB 04/10/17 Albuterol Sulfate (Proventil Hfa) 6.7 Gm Aer.w.adap, 2 PUFF INH Q4H PRN for WHEEZING, 0 Refills 09/07/11 Past Medical/Surgical History Patient has a past medical history of CVA, migraines, DVTs, NH, CHF, hypertension, hyperlipidemia, bronchitis, COPD, diverticulosis, reflux, cholelithiasis, hiatal hernia, gout, back pain, diabetes. Patient has a surgical history of cardiac catheter, stent placement, gastric bypass, hernia repair, knee surgery, ankle surgery, sinus surgery, tonsillectomy. Patient has a family medical history of CAD, cancer, stroke, diabetes. Hx Smoking: No (1PPDX 30 YEARS- QUIT 2000) (SKYLER CHERRY DO) Reviewed Nurses Notes: Yes Old Medical Records Reviewed: Yes (SKYLER CHERRY DO) Hx Smoking: Yes (1PPDX 30 YEARS- QUIT 2000) Smoking Status: Former Smoker Exposure to Second Hand Smoke?: No Hx Substance Use Disorder: No Hx Alcohol Use: No (SKYLER CHERRY DO) Constitutional Vital Sign - Last 24 Hours 08/10/18 08/10/18 08/10/18 08/10/18 06:21 06:26 06:32 06:32 Temp 97.7 Pulse 75 76 Resp 16 20 B/P (MAP) 194/81 Pulse Ox 94 95 O2 Delivery Room Air Nasal Cannula O2 Flow Rate 2.0 2.0 08/10/18 06:37 Pulse 72 Resp 20 (CHELSEY ROMERO MD) Physical Exam General Appearance: The patient is alert, has no immediate need for airway protection and no current signs of toxicity. Vital signs stable, afebrile, pulse ox normal HEENT: Pupils equal and round no injection. Oropharynx with mild erythema, no exudate Respiratory: Chest is non tender, crease breath sounds bilaterally Cardiac: regular rate and rhythm Gastrointestinal: Abdomen is soft and non tender, no masses, bowel sounds normal. Musculoskeletal: Neck: Neck is supple and non tender. No JVD, no lymphadenopathy Extremities have full range of motion and are non tender. No edema Skin: No rashes or lesions. DIFFERENTIAL DIAGNOSIS: After history and physical exam differential diagnosis was considered for shortness of breath including but not limited to pulmonary infectious process, COPD, asthma, pulmonary embolus and congestive heart failure. (SKYLER CHERRY DO) Medical Decision Making Data Points Result Diagram: 08/10/18 0638 08/10/18 0638 Laboratory Hematology Test 08/10/18 06:38 Red Blood Count 4.92 M/uL (4.00-5.60) Mean Corpuscular Volume 91.1 fL (80.0-96.0) Mean Corpuscular Hemoglobin 30.5 pg (26.0-33.0) Mean Corpuscular Hemoglobin Concent 33.5 g/dL (32.0-36.0) Red Cell Distribution Width 14.1 % (11.5-14.5) Mean Platelet Volume 7.9 fL (7.2-11.1) Neutrophils (%) (Auto) 69.2 % (39.4-72.5) Lymphocytes (%) (Auto) 17.4 % (17.6-49.6) Monocytes (%) (Auto) 10.9 % (4.1-12.4) Eosinophils (%) (Auto) 1.7 % (0.4-6.7) Basophils (%) (Auto) 0.8 % (0.3-1.4) Nucleated RBC Relative Count (auto) 0.0 /100WBC Neutrophils # (Auto) 5.4 K/uL (2.0-7.4) Lymphocytes # (Auto) 1.4 K/uL (1.3-3.6) Monocytes # (Auto) 0.9 K/uL (0.3-1.0) Eosinophils # (Auto) 0.1 K/uL (0.0-0.5) Basophils # (Auto) 0.1 K/uL (0.0-0.1) Nucleated RBC Absolute Count (auto) 0.00 K/uL Sodium Level 135 mmol/L (137-145) Potassium Level 4.0 mmol/L (3.5-5.0) Chloride Level 99 mmol/L (98-107) Carbon Dioxide Level 24 mmol/L (22-30) Blood Urea Nitrogen 20 mg/dl (9-21) Creatinine 0.70 mg/dl (0.66-1.25) Glomerular Filtration Rate Calc > 60.0 Random Glucose 295 mg/dl (75-110) Calcium Level 8.2 mg/dl (8.4-10.2) Total Bilirubin 0.5 mg/dl (0.2-1.3) Aspartate Amino Transf (AST/SGOT) 22 U/L (0-35) Alanine Aminotransferase (ALT/SGPT) 34 U/L (0-56) Alkaline Phosphatase 95 U/L (0-126) Troponin I < 0.012 ng/ml B-Type Natriuretic Peptide 19 pg/ml (0-100) Total Protein 6.7 g/dl (6.3-8.2) Albumin 3.7 g/dl (3.5-5.0) Chemistry Test 08/10/18 06:38 White Blood Count 7.9 k/uL (4.5-11.0) Red Blood Count 4.92 M/uL (4.00-5.60) Hemoglobin 15.0 g/dL (14.0-18.0) Hematocrit 44.8 % (42.0-52.0) Mean Corpuscular Volume 91.1 fL (80.0-96.0) Mean Corpuscular Hemoglobin 30.5 pg (26.0-33.0) Mean Corpuscular Hemoglobin Concent 33.5 g/dL (32.0-36.0) Red Cell Distribution Width 14.1 % (11.5-14.5) Platelet Count 274 K/uL (150-450) Mean Platelet Volume 7.9 fL (7.2-11.1) Neutrophils (%) (Auto) 69.2 % (39.4-72.5) Lymphocytes (%) (Auto) 17.4 % (17.6-49.6) Monocytes (%) (Auto) 10.9 % (4.1-12.4) Eosinophils (%) (Auto) 1.7 % (0.4-6.7) Basophils (%) (Auto) 0.8 % (0.3-1.4) Nucleated RBC Relative Count (auto) 0.0 /100WBC Neutrophils # (Auto) 5.4 K/uL (2.0-7.4) Lymphocytes # (Auto) 1.4 K/uL (1.3-3.6) Monocytes # (Auto) 0.9 K/uL (0.3-1.0) Eosinophils # (Auto) 0.1 K/uL (0.0-0.5) Basophils # (Auto) 0.1 K/uL (0.0-0.1) Nucleated RBC Absolute Count (auto) 0.00 K/uL Glomerular Filtration Rate Calc > 60.0 Calcium Level 8.2 mg/dl (8.4-10.2) Total Bilirubin 0.5 mg/dl (0.2-1.3) Aspartate Amino Transf (AST/SGOT) 22 U/L (0-35) Alanine Aminotransferase (ALT/SGPT) 34 U/L (0-56) Alkaline Phosphatase 95 U/L (0-126) Troponin I < 0.012 ng/ml B-Type Natriuretic Peptide 19 pg/ml (0-100) Total Protein 6.7 g/dl (6.3-8.2) Albumin 3.7 g/dl (3.5-5.0) (CHELSEY ROMERO MD) EKG/Imaging EKG Interpretation 12 lead EK 6:30 Rhythm: normal sinus rhythm [place]: normal QRS: normal, old anterior Q waves ST segments: normal, comparison to previous EKG dated, no change compared to previous EKG dated 01/15/18 Imaging X-ray: Two-view chest x-ray was obtained. I viewed the images myself on the PACS system. My interpretation of the images is: No infiltrate, no effusion, normal mediastinum, comparison to previous chest x-ray dated 01/15/18 difficult change. The radiologist interpretation had no clinically significant variation from this interpretation. (SKYLER CHERRY DO) ED Course/Re-evaluation Clinical Indication for ER IV: IV Access (JO ANN,SKYLER M DO) ED Course Transient shortness of breath which has since resolved. Not sister with NH. No evidence of pneumonia. Not consistent with PE. Improved with nebs/steroids. Will follow up with his PCM Decision to Disposition Date: Aug 10, 2018 Decision to Disposition Time: 08:13 (CHELSEY ROMERO MD) Depart Departure Latest Vital Signs Vital Signs Date Time Temp Pulse Resp B/P (MAP) Pulse Ox O2 Delivery O2 Flow Rate FiO2 08/10/18 06:37 72 20 08/10/18 06:32 95 Nasal Cannula 2.0 08/10/18 06:21 97.7 194/81 (CHELSEY ROMERO MD) Impression: Primary Impression: Acute dyspnea Condition: Improved Disposition: HOME OR SELF-CARE Patient Instructions: Dyspnea (ED) SKYLER CHERRY DO Aug 10, 2018 06:19 CHELSEY ROMERO MD Aug 10, 2018 08:06
[2018-08-10] MEDS ORDERED: methylPREDNIS SUCC 125 MG/2ML IVP ONE (06:20)
[2018-08-10] MEDS ORDERED: ALBUTEROL/IPRATROPIUM 3 ML NEB NEB ONE (06:20)
--- NOTE | 2018-08-10 06:45 | EKG ---
FACILITY: [facility] - [place] PATIENT NAME: BRETT BRADLEY : [id number] MR: [id number] V: [id number] EXAM DATE: ORDERING PHYSICIAN: SKYLER CHERRY TECHNOLOGIST: HC Test Reason : DYSPNEA Blood Pressure : / mmHG Vent. Rate : 079 BPM Atrial Rate : 079 BPM P-R Int : 172 ms QRS Dur : 092 ms QT Int : 412 ms P-R-T Axes : 057 072 031 degrees QTc Int : 472 ms Normal sinus rhythm Cannot rule out Anterior infarct , age undetermined Abnormal ECG When compared with ECG of 15-JAN-2018 09:20, No significant change was found Confirmed by ASHANTI VANESSA ([id number]) on 08/10/2018 7:37:44 PM Referred By: JO ANN Confirmed By:ASHANTI VANESSA
[2018-08-10 06:48] LABS: PLATELET COUNT, AUTOMATED 274 K/uL (150-450)
--- NOTE | 2018-08-10 07:09 | RADIOLOGY IMAGING REPORT ---
FACILITY: [facility] - [place] PATIENT NAME: Nomi Whiting : 1945 MR: [id number] V: [id number] EXAM DATE: ORDERING PHYSICIAN: SKYLRE CHERRY TECHNOLOGIST: Location: [facility] - [place] Patient: Nomi Whiting : 1945 Visit/Account:[id number] Date of Sevice: 08/10/2018 CHEST PA AND LAT HISTORY: Respiratory distress. COMPARISON: 01/15/2018. FINDINGS: Lines/tubes: None. Lungs/pleura: Negative. Heart: Negative. Mediastinum: Negative. Bony structures/body wall: Healed left posterior lateral 5th and 6th rib fractures. Degenerative juan a nges in the spine. No acute osseous findings. IMPRESSION: No acute cardiopulmonary process. Report Dictated By: Richmond Figueroa MD at 08/10/2018 7:03 AM Report E-Signed By: Richmond Figueroa MD at 08/10/2018 7:05 AM WSN:[id number]
[2018-08-10 08:08] VITALS: BP 159/73
== END 2018-08-10 08:20 | disposition home or self-care (01) ==
LOC: ER 06:24
DX: R06.02 Shortness of breath (principal); J44.9 Chronic obstructive pulmonary disease, unspecified; I25.10 Atherosclerotic heart disease of native coronary artery without angina pectoris; E11.9 Type 2 diabetes mellitus without complications
CPT/HCPCS: 36415; 71046; 83880; 84484; 85025; 93005; 94640; 96374; 99284; J2930; J7620; 82040; 82247; 82310; 82374; 82435; 82565; 82947; 84075; 84132; 84155; 84295; 84450; 84460; 84520

== ENCOUNTER 2018-08-10 16:09 | Emergency (ER) | payer MEDICARE, MEDICAID ==
[2016-04-21 13:01] VITALS: BMI 33.5
[2018-08-10] MEDS ORDERED: INS HUM LISPRO 100U/ML (ER ONLY) 10 ML VIAL SUBQ ONE (16:30)
[2018-08-10] MEDS ORDERED: EMS NS 0.9%(*) 1000 ML BAG 1,000 ML IV ONE (16:35)
[2018-08-10] MEDS ORDERED: EMS LR(*) 1000 ML BAG 1,000 ML IV ONE (16:50)
[2018-08-10 18:11] LABS: PLATELET COUNT, AUTOMATED 342 K/uL (150-450)
--- NOTE | 2018-08-10 18:13 | EKG ---
[place] [facility] [place] NAME: BRETT BRADLEY : [id number] MR: [id number] V: [id number] EXAM DATE: ORDERING PHYSICIAN: CHELSEY ROMERO TECHNOLOGIST: BART Test Reason : SHARP ARM PAIN Blood Pressure : / mmHG Vent. Rate : 099 BPM Atrial Rate : 099 BPM P-R Int : 180 ms QRS Dur : 092 ms QT Int : 398 ms P-R-T Axes : 066 075 026 degrees QTc Int : 510 ms Normal sinus rhythm Prolonged QT No ST-T abnormalities When compared with ECG of 10-AUG-2018 06:27, No significant change was found Confirmed by ASHANTI VANESSA ([id number]) on 08/10/2018 7:49:20 PM Referred By: NICK Confirmed By:ASHANTI VANESSA
--- NOTE | 2018-08-10 18:33 | ER Report ---
History and Physical Time Seen By MD: 18:31 Hx. of Stated Complaint: PATIENT REPORTS THAT HIS BLOOD SUGAR HAS BEEN OVER 400 FOR THE LAST 3 DAYS HPI/ROS CHIEF COMPLAINT: Dyspnea HISTORY OF PRESENT ILLNESS: 73-year-old male with an extensive past medical history who was seen earlier in the ER. He presented with shortness of breath at 5 AM. He was much better on arrival. After nebulizer treatment by paramedics. His diagnostic studies were unremarkable. He was discharged home. A few hours later he checked his sugar, which was grossly elevated and came in complaining of further shortness of breath. Patient reports his blood glucoses been over 400. For the last few days. Patient was actually seen in the ER ear lier this morning. His glucose was 295. REVIEW OF SYSTEMS: Respiratory: As above. Cardiovascular: No chest pain, no palpitations. Gastrointestinal: No vomiting, no abdominal pain. Musculoskeletal: No back pain. Allergies: Coded Allergies: naproxen (Verified Allergy, Severe, CHEST PAIN, RASH, 08/10/18) Penicillins (Verified Allergy, Mild, ITCHING, 08/10/18) Home Meds Active Scripts Insulin Detemir 100 UN/ML PEN (Levemir Flextouch) 100 Unit/1 Ml Insuln.pen, 40 UNITS SUBQ BID, #2 BOX 0 Refills Prov:WILMER NGUYEN APRN SURGICAL ELASTIC KNITTER-C 07/17/18 Insulin Lispro 100 Un/Ml Pen (HUMALOG 3 ML PEN) 100 Unit/1 Ml Insuln.pen, 20 U NIT SQ TID, #2 BOX 1 Refill Prov:KIKI CORMIER MD 04/02/18 Pantoprazole Sodium (PANTOPRAZOLE SODIUM) 40 Mg Tablet.dr, 1 TAB PO QDAY, #60 TAB.SR 3 Refills Prov:HERBERT FELIZ MD 02/26/18 Lisinopril (LISINOPRIL) 5 Mg Tablet, 5 MG PO QDAY, #90 TAB 3 Refills Prov:KIKI CORMIER MD 01/29/18 Reported Medications Cholecalciferol (Vitamin D3) (VITAMIN D3) 5,000 Unit Tablet, 5000 UNIT PO DAILY 01/29/18 Ferrous Sulfate (FERROUS SULFATE) 325 Mg Tablet, 325 MG PO DAILY 01/29/18 Acetaminophen (TYLENOL EXTRA STRENGTH) 500 Mg Tablet, 1 TAB PO TID PRN for PAIN, TAB 04/10/17 [place]-3 Fatty Acids/Fish Oil (FISH OIL 1,000 MG SOFTGEL) 1 Each Capsule, 1 EACH PO BID, CAPSULE 04/10/17 [place], Insulin Disposable (Bd Ultra-Fine Pen Needle) 1 Each Dis.needle, EACH 5XD, #100 04/10/17 Albuterol Sulfate 0.083% (ALBUTEROL SULFATE 0.083%) 2.5 Mg/3 Ml Vial.neb, 2.5 MG INH Q8H PRN for WHEEZING, INH 04/10/17 Allopurinol (ZYLOPRIM) 300 Mg Tablet, 1 TAB PO QDAY, TAB 04/10/17 Albuterol Sulfate (Proventil Hfa) 6.7 Gm Aer.w.adap, 2 PUFF INH Q4H PRN for WHEEZING, 0 Refills 09/07/11 Past Medical/Surgical History Patient has a past medical history of CVA, migraines, DVTs, CO, CHF, hypertension, hyperlipidemia, bronchitis, COPD, diverticulosis, reflux, cholelithiasis, hiatal hernia, gout, back pain, diabetes. Patient has a surgical history of cardiac catheter, stent placement, gastric bypass, hernia repair, knee surgery, ankle surgery, sinus surgery, tonsillectomy. Patient has a family medical history of CAD, cancer, stroke, diabetes. Reviewed Nurses Notes: Yes Old Medical Records Reviewed: Yes Hx Smoking: Yes (1PPDX 30 YEARS- QUIT 2000) Smoking Status: Former Smoker Exposure to Second Hand Smoke?: No Hx Substance Use Disorder: No Hx Alcohol Use: No Constitutional Vital Sign - Last 24 Hours 08/10/18 08/10/18 08/10/18 08/10/18 16:14 18:45 18:48 19:00 Temp 97.9 Pulse 101 94 98 Resp 24 20 B/P (MAP) 172/79 156/66 (96) Pulse Ox 92 93 O2 Delivery Room Air 08/10/18 08/10/18 08/10/18 08/10/18 19:30 19:35 20:00 20:05 Pulse 97 94 B/P (MAP) 136/61 (86) 152/64 (93) Pulse Ox 91 91 08/10/18 08/10/18 08/10/18 08/10/18 20:26 20:30 20:45 21:00 Pulse 93 92 91 96 B/P (MAP) 158/70 (99) 165/79 (107) Pulse Ox 91 92 93 08/10/18 21:15 Pulse 89 Pulse Ox 91 Intake and Output 08/10/18 08/10/18 08/11/18 15:00 23:00 07:00 Intake Total 2000 ml Balance 2000 ml Physical Exam General Appearance: The patient is alert, has no immediate need for airway protection and no current signs of toxicity. Vital signs stable, afebrile, pulse ox normal HEENT: Pupils equal and round no injection. Oropharynx without erythema or exudate, mucous. Membranes are moist Respiratory: Chest is non tender, lungs are clear to auscultation. No wheezing Cardiac: regular rate and rhythm, distant heart sounds Gastrointestinal: Abdomen is soft and non tender, no masses, bowel sounds normal. Musculoskeletal: Neck: Neck is supple and non tender. No lymphadenopathy Extremities have full range of motion and are non tender. No edema, no calf tenderness Skin: No rashes or lesions. DIFFERENTIAL DIAGNOSIS: After history and physical exam differential diagnosis was considered for weakness including but not limited to electrolyte abnormality, depression, anxiety, CVA, spinal cord abnormality, and infectious causes. Medical Decision Making Data Points Result Diagram: 08/10/18 0000 08/10/18 0000 Laboratory Hematology Test 08/10/18 00:00 08/10/18 20:53 Red Blood Count 4.95 M/uL (4.00-5.60) Mean Corpuscular Volume 92.3 fL (80.0-96.0) Mean Corpuscular Hemoglobin 30.5 pg (26.0-33.0) Mean Corpuscular Hemoglobin Concent 33.0 g/dL (32.0-36.0) Red Cell Distribution Width 14.4 % (11.5-14.5) Mean Platelet Volume 8.8 fL (7.2-11.1) Neutrophils (%) (Auto) 93.8 % (39.4-72.5) Lymphocytes (%) (Auto) 4.9 % (17.6-49.6) Monocytes (%) (Auto) 1.1 % (4.1-12.4) Eosinophils (%) (Auto) 0.0 % (0.4-6.7) Basophils (%) (Auto) 0.2 % (0.3-1.4) Nucleated RBC Relative Count (auto) 0.0 /100WBC Neutrophils # (Auto) 11.7 K/uL (2.0-7.4) Lymphocytes # (Auto) 0.6 K/uL (1.3-3.6) Monocytes # (Auto) 0.1 K/uL (0.3-1.0) Eosinophils # (Auto) 0.0 K/uL (0.0-0.5) Basophils # (Auto) 0.0 K/uL (0.0-0.1) Nucleated RBC Absolute Count (auto) 0.00 K/uL Sodium Level 132 mmol/L (137-145) Potassium Level 4.2 mmol/L (3.5-5.0) Chloride Level 99 mmol/L (98-107) Carbon Dioxide Level 16 mmol/L (22-30) Blood Urea Nitrogen 24 mg/dl (9-21) Creatinine 0.90 mg/dl (0.66-1.25) Glomerular Filtration Rate Calc > 60.0 Random Glucose 507 mg/dl (75-110) Calcium Level 8.5 mg/dl (8.4-10.2) Total Bilirubin 0.5 mg/dl (0.2-1.3) Aspartate Amino Transf (AST/SGOT) 30 U/L (0-35) Alanine Aminotransferase (ALT/SGPT) 33 U/L (0-56) Alkaline Phosphatase 98 U/L (0-126) Troponin I < 0.012 ng/ml Total Protein 7.1 g/dl (6.3-8.2) Albumin 4.2 g/dl (3.5-5.0) Whole Blood Glucose 291 mg/DL (75-110) Chemistry Test 08/10/18 00:00 08/10/18 20:53 White Blood Count 12.4 k/uL (4.5-11.0) Red Blood Count 4.95 M/uL (4.00-5.60) Hemoglobin 15.1 g/dL (14.0-18.0) Hematocrit 45.7 % (42.0-52.0) Mean Corpuscular Volume 92.3 fL (80.0-96.0) Mean Corpuscular Hemoglobin 30.5 pg (26.0-33.0) Mean Corpuscular Hemoglobin Concent 33.0 g/dL (32.0-36.0) Red Cell Distribution Width 14.4 % (11.5-14.5) Platelet Count 342 K/uL (150-450) Mean Platelet Volume 8.8 fL (7.2-11.1) Neutrophils (%) (Auto) 93.8 % (39.4-72.5) Lymphocytes (%) (Auto) 4.9 % (17.6-49.6) Monocytes (%) (Auto) 1.1 % (4.1-12.4) Eosinophils (%) (Auto) 0.0 % (0.4-6.7) Basophils (%) (Auto) 0.2 % (0.3-1.4) Nucleated RBC Relative Count (auto) 0.0 /100WBC Neutrophils # (Auto) 11.7 K/uL (2.0-7.4) Lymphocytes # (Auto) 0.6 K/uL (1.3-3.6) Monocytes # (Auto) 0.1 K/uL (0.3-1.0) Eosinophils # (Auto) 0.0 K/uL (0.0-0.5) Basophils # (Auto) 0.0 K/uL (0.0-0.1) Nucleated RBC Absolute Count (auto) 0.00 K/uL Glomerular Filtration Rate Calc > 60.0 Calcium Level 8.5 mg/dl (8.4-10.2) Total Bilirubin 0.5 mg/dl (0.2-1.3) Aspartate Amino Transf (AST/SGOT) 30 U/L (0-35) Alanine Aminotransferase (ALT/SGPT) 33 U/L (0-56) Alkaline Phosphatase 98 U/L (0-126) Troponin I < 0.012 ng/ml Total Protein 7.1 g/dl (6.3-8.2) Albumin 4.2 g/dl (3.5-5.0) Whole Blood Glucose 291 mg/DL (75-110) EKG/Imaging EKG Interpretation 12 lead EK Rhythm: normal sinus rhythm [place]: normal QRS: normal, prolonged QT ST segments: normal, comparison to previous EKG from earlier today at approximate 5:30 AM, no significant change ED Course/Re-evaluation Clinical Indication for ER IV: Hydration, IV Access ED Course Patient was admitted to an examination room. H&P was done. The differential diagnoses was considered. On clinical examination. Patient has elevated glucose. He is treated with IV fluid hydration and insulin 10 units IV. On reevaluation, his sugar seems still gone up. Patient's treated with another liter of hydration and an additional 10 units of Regular Insulin IV. After an hour. His glucose is rechecked. It's come down to 390. Continued IV fluid hydration is administered. A repeat another hour shows his glucose at 291. Reports feeling better and would like to go home. He is discharged home and advised to follow-up with his primary care doctor for adjustment of his insulin. Decision to Disposition Date: Aug 10, 2018 Decision to Disposition Time: 20:51 Depart Departure Latest Vital Signs Vital Signs Date Time Temp Pulse Resp B/P (MAP) Pulse Ox O2 Delivery O2 Flow Rate FiO2 08/10/18 21:15 89 91 08/10/18 21:00 165/79 (107) 08/10/18 18:48 20 08/10/18 16:14 97.9 Room Air Impression: Primary Impression: Borderline hyperglycemia Additional Impressions: Type 2 diabetes mellitus treated with insulin COPD (chronic obstructive pulmonary disease) Condition: Improved Disposition: HOME OR SELF-CARE Patient Instructions: Diabetic Hyperglycemia (ED) Additional Instructions: Follow-up with your primary care provider tomorrow for adjustment of your insulin Problem Qualifiers Additional Impressions: COPD (chronic obstructive pulmonary disease) COPD type: unspecified COPD Qualified Codes: J44.9 - Chronic obstructive pulmonary disease, unspecified SKYLER CHERRY DO Aug 10, 2018 18:33
[2018-08-10] MEDS ORDERED: NS(*) 0.9% 1000 ML BAG 1,000 ML IV ONE (18:35)
[2018-08-10] MEDS ORDERED: INSU HUM REG 100 U/ML(ER ONLY) 10 ML VIAL IVP ONE (18:35)
[2018-08-10] MEDS ORDERED: ALBUTEROL/IPRATROPIUM 3 ML NEB NEB ONE (18:35)
[2018-08-10 21:00] VITALS: BP 165/79
== END 2018-08-10 21:38 | disposition home or self-care (01) ==
LOC: ER 16:36
DX: E11.65 Type 2 diabetes mellitus with hyperglycemia (principal); Z79.4 Long term (current) use of insulin; J44.9 Chronic obstructive pulmonary disease, unspecified
CPT/HCPCS: 36416; 82948; 84484; 85025; 93005; 96361; 96372; 96374; 99284; A9270; J7030; J7120; J7620; 82040; 82247; 82310; 82374; 82435; 82565; 82947; 84075; 84132; 84155; 84295; 84450; 84460; 84520; J1815

== ENCOUNTER → 2018-08-10 | Outpatient (CLI) | payer MEDICARE ==
[2016-04-21 13:01] VITALS: BMI 33.5
== END ==
LOC: AMB 15:49
PROVIDERS: ATTEND Nurse Practitioner
DX: E11.65 Type 2 diabetes mellitus with hyperglycemia (principal); I10 Essential (primary) hypertension
CPT/HCPCS: A0425; A0427

== ENCOUNTER → 2018-08-10 | Outpatient (CLI) | payer MEDICARE ==
[2016-04-21 13:01] VITALS: BMI 33.5
== END ==
LOC: AMB 05:58
PROVIDERS: ATTEND Nurse Practitioner
DX: R06.02 Shortness of breath (principal); R06.2 Wheezing; E10.65 Type 1 diabetes mellitus with hyperglycemia
CPT/HCPCS: A0425; A0427

== ENCOUNTER 2018-09-01 02:49 | Emergency (ER) | payer MEDICARE, MEDICAID ==
[2016-04-21 13:01] VITALS: Wt 99.8 kg
[2018-09-01] MEDS ORDERED: LISI-362 PO (03:04)
[2018-09-01] MEDS ORDERED: EMS NS 0.9%(*) 1000 ML BAG 1,000 ML IV ONE (03:05)
--- NOTE | 2018-09-01 03:12 | ER Report ---
History and Physical Time Seen By MD: 03:05 Hx. of Stated Complaint: head ache that started around 1800; high blood sugar, intermitten right chest pain; states no chest pain currently just 10/10 head ache HPI/ROS CHIEF COMPLAINT: headache, chest pain, nausea HISTORY OF PRESENT ILLNESS: This is a 73 year old male. He has been having chest pain off and on since yesterday afternoon. Also started with a severe headache a t about 1800. Severe 10/10 pain. Diffuse pain. Took some Tylenol which did not help. He denies vision changes. No dizziness. The chest pain is mostly gone now. EMS found his blood pressure to be very high. Blood sugars a little high, in the 200s. He did take his insulin tonight. He also took his Lisinopril which they raised to 10mg instead of 5mg. No fevers or chills. No recent illness such as sore throat, runny nose or cough. Normal bowel and bladder function. He has been having some pain in the left foot intermittently for the last week and his left hand around the thumb. Allergies: Coded Allergies: naproxen (Verified Allergy, Severe, CHEST PAIN, RASH, 09/01/18) Penicillins (Verified Allergy, Mild, ITCHING, 09/01/18) Home Meds Active Scripts Insulin Detemir 100 UN/ML PEN (Levemir Flextouch) 100 Unit/1 Ml Insuln.pen, 40 UNITS SUBQ BID, #2 BOX 0 Refills Prov:WILMER NGUYEN APRN EXPLOSIVE EXPERT-C 07/17/18 Insulin Lispro 100 Un/Ml Pen (HUMALOG 3 ML PEN) 100 Unit/1 Ml Insuln.pen, 20 UNIT SQ TID, #2 BOX 1 Refill Prov:KIKI CORMIER MD 04/02/18 Pantoprazole Sodium (PANTOPRAZOLE SODIUM) 40 Mg Tablet.dr, 1 TAB PO QDAY, #60 TAB.SR 3 Refills Prov:HERBERT FELIZ MD 02/26/18 Reported Medications Lisinopril (LISINOPRIL) 10 Mg Tablet, 10 MG PO QDAY, TAB 09/01/18 Cholecalciferol (Vitamin D3) (VITAMIN D3) 5,000 Unit Tablet, 5000 UNIT PO DAILY 01/29/18 Ferrous Sulfate (FERROUS SULFATE) 325 Mg Tablet, 325 MG PO DAILY 01/29/18 Acetaminophen (TYLENOL EXTRA STRENGTH) 500 Mg Tablet, 1 TAB PO TID PRN for PAIN, TAB 04/10/17 [place]-3 Fatty Acids/Fish Oil (FISH OIL 1,000 MG SOFTGEL) 1 Each Capsule, 1 EACH PO BID, CAPSULE 04/10/17 [place], Insulin Disposable (Bd Ultra-Fine Pen Needle) 1 Each Dis.needle, EACH 5XD, #100 04/10/17 Albuterol Sulfate 0.083% (ALBUTEROL SULFATE 0.083%) 2.5 Mg/3 Ml Vial.neb, 2.5 MG INH Q8H PRN for WHEEZING, INH 04/10/17 Allopurinol (ZYLOPRIM) 300 Mg Tablet, 1 TAB PO QDAY, TAB 04/10/17 Albuterol Sulfate (Proventil Hfa) 6.7 Gm Aer.w.adap, 2 PUFF INH Q4H PRN for WHEEZING, 0 Refills 09/07/11 Discontinued Scripts Lisinopril (LISINOPRIL) 5 Mg Tablet, 5 MG PO QDAY, #90 TAB 3 Refills Prov:KIKI CORMIER MD 01/29/18 Reviewed Nurses Notes: Yes Hx Smoking: Yes (1PPDX 30 YEARS- QUIT 2000) Smoking Status: Former Smoker Exposure to Second Hand Smoke?: No Hx Substance Use Disorder: No Hx Alcohol Use: No Constitutional Vital Sign - Last 24 Hours 09/01/18 09/01/18 09/01/18 09/01/18 02:56 02:56 03:00 03:19 Temp 97.4 Pulse 73 70 Resp 17 23 B/P (MAP) 169/77 (107) 169/77 171/72 (105) Pulse Ox 94 93 O2 Delivery Room Air 09/01/18 09/01/18 09/01/18 09/01/18 03:39 03:49 04:00 04:19 Pulse 70 68 Resp 15 11 B/P (MAP) 150/79 (102) 160/76 (104) Pulse Ox 86 95 09/01/18 09/01/18 09/01/18 09/01/18 04:30 04:30 05:00 05:30 Pulse 72 79 B/P (MAP) 163/72 (102) 163/72 (102) 158/71 (100) 144/67 (92) 09/01/18 06:00 Pulse 72 Resp 21 B/P (MAP) 124/69 (87) Intake and Output 08/31/18 08/31/18 09/01/18 15:00 23:00 07:00 Intake Total 1000 ml Balance 1000 ml Physical Exam General Appearance: The patient is alert. No acute distress. Eyes: Pupils are equal, round. Reactive to light. No pallor, injection or icterus. Extraocular movements are intact. ENT: Mucous membranes are moist. Normal oral mucosa. Posterior oropharynx is normal. Neck: Supple and non tender. No lymphadenopathy. Respiratory: Lungs are clear to auscultation. Cardiovascular: Regular rate and rhythm. No murmurs, gallops or rubs. Normal capillary refill. No edema. Gastrointestinal: Abdomen is soft and non tender. Nondistended. Normal active bowel sounds. No costovertebral angle tenderness with percussion. Neurological: Alert and oriented x3. Cranial nerves II through XII show no acute deficits on my exam. No focal neurologic deficits in the extremities. Skin: Warm and dry. No rashes. No skin breakdown of the foot. Musculoskeletal: Extremities are nontender. No tenderness in palpation of the cervical, thoracic and lumbar spine. DIFFERENTIAL DIAGNOSIS: After history and physical exam, differential diagnosis was considered for headache with elevated blood pressure and some intermittent chest pain. Medical Decision Making Data Points Result Diagram: 09/01/1824609/01/187 Laboratory Hematology Test 09/01/18 02:47 Red Blood Count 5.33 M/uL (4.00-5.60) Mean Corpuscular Volume 91.9 fL (80.0-96.0) Mean Corpuscular Hemoglobin 30.3 pg (26.0-33.0) Mean Corpuscular Hemoglobin Concent 32.9 g/dL (32.0-36.0) Red Cell Distribution Width 14.9 % (11.5-14.5) Mean Platelet Volume 8.8 fL (7.2-11.1) Neutrophils (%) (Auto) 72.7 % (39.4-72.5) Lymphocytes (%) (Auto) 16.4 % (17.6-49.6) Monocytes (%) (Auto) 8.5 % (4.1-12.4) Eosinophils (%) (Auto) 1.7 % (0.4-6.7) Basophils (%) (Auto) 0.7 % (0.3-1.4) Nucleated RBC Relative Count (auto) 0.0 /100WBC Neutrophils # (Auto) 7.0 K/uL (2.0-7.4) Lymphocytes # (Auto) 1.6 K/uL (1.3-3.6) Monocytes # (Auto) 0.8 K/uL (0.3-1.0) Eosinophils # (Auto) 0.2 K/uL (0.0-0.5) Basophils # (Auto) 0.1 K/uL (0.0-0.1) Nucleated RBC Absolute Count (auto) 0.00 K/uL Erythrocyte Sedimentation Rate 5 mm/HOUR (0-20) Sodium Level 137 mmol/L (137-145) Potassium Level 4.0 mmol/L (3.5-5.0) Chloride Level 100 mmol/L (98-107) Carbon Dioxide Level 24 mmol/L (22-30) Blood Urea Nitrogen 13 mg/dl (9-21) Creatinine 0.70 mg/dl (0.66-1.25) Glomerular Filtration Rate Calc > 60.0 Random Glucose 270 mg/dl (75-110) Calcium Level 8.8 mg/dl (8.4-10.2) Total Bilirubin 0.5 mg/dl (0.2-1.3) Aspartate Amino Transf (AST/SGOT) 22 U/L (0-35) Alanine Aminotransferase (ALT/SGPT) 36 U/L (0-56) Alkaline Phosphatase 85 U/L (0-126) Troponin I < 0.012 ng/ml C-Reactive Protein 0.6 mg/dl (<1.0) Total Protein 6.8 g/dl (6.3-8.2) Albumin 4.1 g/dl (3.5-5.0) Chemistry Test 09/01/18 02:47 White Blood Count 9.6 k/uL (4.5-11.0) Red Blood Count 5.33 M/uL (4.00-5.60) Hemoglobin 16.2 g/dL (14.0-18.0) Hematocrit 49.0 % (42.0-52.0) Mean Corpuscular Volume 91.9 fL (80.0-96.0) Mean Corpuscular Hemoglobin 30.3 pg (26.0-33.0) Mean Corpuscular Hemoglobin Concent 32.9 g/dL (32.0-36.0) Red Cell Distribution Width 14.9 % (11.5-14.5) Platelet Count 284 K/uL (150-450) Mean Platelet Volume 8.8 fL (7.2-11.1) Neutrophils (%) (Auto) 72.7 % (39.4-72.5) Lymphocytes (%) (Auto) 16.4 % (17.6-49.6) Monocytes (%) (Auto) 8.5 % (4.1-12.4) Eosinophils (%) (Auto) 1.7 % (0.4-6.7) Basophils (%) (Auto) 0.7 % (0.3-1.4) Nucleated RBC Relative Count (auto) 0.0 /100WBC Neutrophils # (Auto) 7.0 K/uL (2.0-7.4) Lymphocytes # (Auto) 1.6 K/uL (1.3-3.6) Monocytes # (Auto) 0.8 K/uL (0.3-1.0) Eosinophils # (Auto) 0.2 K/uL (0.0-0.5) Basophils # (Auto) 0.1 K/uL (0.0-0.1) Nucleated RBC Absolute Count (auto) 0.00 K/uL Erythrocyte Sedimentation Rate 5 mm/HOUR (0-20) Glomerular Filtration Rate Calc > 60.0 Calcium Level 8.8 mg/dl (8.4-10.2) Total Bilirubin 0.5 mg/dl (0.2-1.3) Aspartate Amino Transf (AST/SGOT) 22 U/L (0-35) Alanine Aminotransferase (ALT/SGPT) 36 U/L (0-56) Alkaline Phosphatase 85 U/L (0-126) Troponin I < 0.012 ng/ml C-Reactive Protein 0.6 mg/dl (<1.0) Total Protein 6.8 g/dl (6.3-8.2) Albumin 4.1 g/dl (3.5-5.0) EKG/Imaging EKG Interpretation 12 lead EKG: Rhythm: Sinus rhythm with premature atrial complexes, rate 70 [place]: normal QRS: Prolonged QT at 490 [address] segments: Negative Imaging PORTABLE CHEST: Indication: Chest pain. Technique: A single frontal film was obtained. Comparison: 08/10/2018 Skeletal and soft tissue structures: There are chronic degenerative changes in the thoracic spine. There are old fractures of the left fifth and sixth ribs. No acute skeletal deformity is identified. Heart and mediastinum: Within normal limits. Lung verduzco: Well-expanded and clear. No focal opacities. No vascular congestion. Pleural spaces: Unremarkable. Impression: No acute process or significant change. Report Dictated By: Jacinto Nagy MD at 09/01/2018 3:[address]: Indication: Persistent headache. Technique: Contiguous axial sections were obtained from the base to the vertex without contrast enhancement. One of the following dose optimization techniques was utilized in the performance of this exam: Automated exposure control; adjustment of the mA and/or kV according to the patient's size; or use of an iterative reconstruction technique. Specific details can be referenced in the facility's radiology CT exam operational policy. Comparison: None. Findings: There is no evidence of intra-axial or extra-axial hemorrhage. There is diffuse mild cortical atrophy and periventricular white matter disease. No focal areas of decreased or increased attenuation are identified. There is no evidence of mass, edema, or shift of the midline structures. The size, shape, and configuration of the ventricular system are normal. The skeletal structures are intact and unremarkable. There are postoperative changes in the maxillary sinuses. There is mild mucosal thickening in the ethmoid sinuses. The paranasal sinuses and mastoid air cells are otherwise clear. Impression: Diffuse mild atrophy. No evidence of hemorrhage, mass, or other acute process. Report Dictated By: Jacinto Nagy MD at 09/01/2018 3:55 AM ED Course/Re-evaluation Clinical Indication for ER IV: Hydration, IV Access ED Course The patient had improvement of his nausea with Zofran. Labs unremarkable. EKG negative. Troponin negative. Imaging negative. Toradol 30mg IV and Lortab 5/325 given, minimal change in headache. Gave Phenergan, Benadryl and Decadron with improved headache. Decision to Disposition Date: Sep 01, 2018 Decision to Disposition Time: 06:00 Depart Departure Latest Vital Signs Vital Signs Date Time Temp Pulse Resp B/P (MAP) Pulse Ox O2 Delivery O2 Flow Rate FiO2 09/01/18 06:00 72 21 124/69 (87) 09/01/18 04:19 95 09/01/18 02:56 97.4 Room Air Impression: Primary Impression: Headache Condition: Improved Disposition: HOME OR SELF-CARE Patient Instructions: Acute Headache (ED) Additional Instructions: No changes in medication at this time. Rest and increase fluids today. Problem Qualifiers Primary Impression: Headache Headache type: unspecified Headache chronicity pattern: acute headache Intractability: not intractable Qualified Codes: R51 - Headache JAMEY VILLASENOR MD Sep 01, 2018 03:12
[2018-09-01] MEDS ORDERED: ONDANSETRON 4 MG/2 ML VIAL IVP ONE (03:15)
[2018-09-01 03:22] LABS: PLATELET COUNT, AUTOMATED 284 K/uL (150-450)
--- NOTE | 2018-09-01 03:58 | RADIOLOGY IMAGING REPORT ---
FACILITY: [facility] PATIENT NAME: Nomi Whiting : 1945 MR: [id number] V: [id number] EXAM DATE: ORDERING PHYSICIAN: JAMEY VILLASENOR TECHNOLOGIST: Location: [facility] [place] Patient: Nomi Whiting : 1945 Visit/Account:[id number] Date of Sevice: 09/01/2018 PORTABLE CHEST: Indication: Chest pain. Technique: A single frontal film was obtained. Comparison: 08/10/2018 Skeletal and soft tissue structures: There are chronic degenerative changes in the thoracic spine. Th ere are old fractures of the left fifth and sixth ribs. No acute skeletal deformity is identified. Heart and mediastinum: Within normal limits. Lung verduzco: Well-expanded and clear. No focal opacities. No vascular congestion. Pleural spaces: Unremarkable. Impression: No acute process or significant change. Report Dictated By: Jacinto Ngay MD at 09/01/2018 3:53 AM Report E-Signed By: Jacinto Nagy MD at 09/01/2018 3:55 AM WSN:[id number]
--- NOTE | 2018-09-01 04:02 | RADIOLOGY IMAGING REPORT ---
FACILITY: [facility] PATIENT NAME: Nomi Whiting : 1945 MR: [id number] V: [id number] EXAM DATE: ORDERING PHYSICIAN: JAMEY VILLASENOR TECHNOLOGIST: Location: [facility] Patient: Nomi Whiting : 1945 Visit/Account:[id number] Date of Sevice: 09/01/[address]: Indication: Persistent headache. Technique: Contiguous axial sections were obtained from the base to the vertex without contrast enhan cement. One of the following dose optimization techniques was utilized in the performance of this exam: Autom ated exposure control; adjustment of the mA and/or kV according to the patient's size; or use of an i terative reconstruction technique. Specific details can be referenced in the facility's radiology CT exam operational policy. Comparison: None. Findings: There is no evidence of intra-axial or extra-axial hemorrhage. There is diffuse mild cortic al atrophy and periventricular white matter disease. No focal areas of decreased or increased attenua tion are identified. There is no evidence of mass, edema, or shift of the midline structures. The siz e, shape, and configuration of the ventricular system are normal. The skeletal structures are intact and unremarkable. There are postoperative changes in the maxillary sinuses. There is mild mucosal thi ckening in the ethmoid sinuses. The paranasal sinuses and mastoid air cells are otherwise clear. Impression: Diffuse mild atrophy. No evidence of hemorrhage, mass, or other acute process. Report Dictated By: Jacinto Nagy MD at 09/01/2018 3:55 AM Report E-Signed By: Jacinto Nagy MD at 09/01/2018 3:59 AM WSN:[id number]
[2018-09-01] MEDS ORDERED: KETOROLAC 30 MG/ML VIAL IVP ONE (04:10)
[2018-09-01] MEDS ORDERED: APAP/HYDROCODONE 325/5 TAB PO ONE (04:10)
[2018-09-01] MEDS ORDERED: DEXAMETHASONE SOD PHOS 10MG/ML IVP ONE (05:00)
[2018-09-01] MEDS ORDERED: PROMETHAZINE 25 MG/ML 1 ML AMP IVP ONE (05:00)
[2018-09-01] MEDS ORDERED: diphenhydrAMINE 50 MG/ML VIAL IVP ONE (05:00)
[2018-09-01 06:00] VITALS: BP 124/69
--- NOTE | 2018-09-01 06:07 | EKG ---
FACILITY: [facility] [place] PATIENT NAME: BRETT BRADLEY : [id number] MR: [id number] V: [id number] EXAM DATE: ORDERING PHYSICIAN: JAMEY VILLASENOR TECHNOLOGIST: RELL Test Reason : NEURO Blood Pressure : / mmHG Vent. Rate : 070 BPM Atrial Rate : 070 BPM P-R Int : 184 ms QRS Dur : 094 ms QT Int : 454 ms P-R-T Axes : 060 080 041 degrees QTc Int : 490 ms Sinus rhythm with blocked premature atrial complexes Prolonged QT Abnormal ECG When compared with ECG of 10-AUG-2018 18:06, premature atrial complexes are now present Confirmed by HERBERT VALE ([id number]) on 09/01/2018 6:40:11 AM Referred By: Confirmed By:HERBERT VALE
== END 2018-09-01 06:15 | disposition home or self-care (01) ==
LOC: ER 02:59
DX: R51 Headache (principal); R07.9 Chest pain, unspecified
CPT/HCPCS: 70450; 71045; 84484; 85025; 85651; 86140; 93005; 96361; 96374; 96375; 99284; A9270; J1100; J1200; J1885; J2405; J2550; 82040; 82247; 82310; 82374; 82435; 82565; 82947; 84075; 84132; 84155; 84295; 84450; 84460; 84520

== ENCOUNTER 2018-09-01 14:29 | Emergency (ER) | payer MEDICARE, MEDICAID ==
[2016-04-21 13:01] VITALS: Wt 99.8 kg
--- NOTE | 2018-09-01 14:22 | ER Report ---
History and Physical Time Seen By MD: 14:22 HPI/ROS 73-year-old male who came to the emergency department for high blood sugars. He states that he is taking his insulin as prescribed by his physician. States that he had a physician who changed his regimen which did not work out for him. Now he states that Kirsten Hwang is trying to get him back on a better diabetic regimen. He has no other complaints. He was seen in the ED a little more than 12 hours ago for chest pain. He no longer has chest pain. No cough, fever, abdominal pain, or dysuria. Otherwise feels well. Allergies: Coded Allergies: naproxen (Verified Allergy, Severe, CHEST PAIN, RASH, 09/01/18) Penicillins (Verified Allergy, Mild, ITCHING, 09/01/18) Home Meds Active Scripts Insulin Detemir 100 UN/ML PEN (Levemir Flextouch) 100 Unit/1 Ml Insuln.pen, 40 UNITS SUBQ BID, #2 BOX 0 Refills Prov:WILMER NGUYEN APRN LEASING AGENT-C 07/17/18 Insulin Lispro 100 Un/Ml Pen (HUMALOG 3 ML PEN) 100 Unit/1 Ml Insuln.pen, 20 UNIT SQ TID, #2 BOX 1 Refill Prov:KIKI CORMIER MD 04/02/18 Pantoprazole Sodium (PANTOPRAZOLE SODIUM) 40 Mg Tablet.dr, 1 TAB PO QDAY, #60 TAB.SR 3 Refills Prov:HERBERT FELIZ MD 02/26/18 Reported Medications Lisinopril (LISINOPRIL) 10 Mg Tablet, 10 MG PO QDAY, TAB 09/01/18 Cholecalciferol (Vitamin D3) (VITAMIN D3) 5,000 Unit Tablet, 5000 UNIT PO DAILY 01/29/18 Ferrous Sulfate (FERROUS SULFATE) 325 Mg Tablet, 325 MG PO DAILY 01/29/18 Acetaminophen (TYLENOL EXTRA STRENGTH) 500 Mg Tablet, 1 TAB PO TID PRN for PAIN, TAB 04/10/17 [place]-3 Fatty Acids/Fish Oil (FISH OIL 1,000 MG SOFTGEL) 1 Each Capsule, 1 EACH PO BID, CAPSULE 04/10/17 [place], Insulin Disposable (Bd Ultra-Fine Pen Needle) 1 Each Dis.needle, EACH 5XD, #100 04/10/17 Albuterol Sulfate 0.083% (ALBUTEROL SULFATE 0.083%) 2.5 Mg/3 Ml Vial.neb, 2.5 MG INH Q8H PRN for WHEEZING, INH 04/10/17 Allopurinol (ZYLOPRIM) 300 Mg Tablet, 1 TAB PO QDAY, TAB 04/10/17 Albuterol Sulfate (Proventil Hfa) 6.7 Gm Aer.w.adap, 2 PUFF INH Q4H PRN for WHEEZING, 0 Refills 09/07/11 Discontinued Scripts Lisinopril (LISINOPRIL) 5 Mg Tablet, 5 MG PO QDAY, #90 TAB 3 Refills Prov:KIKI CORMIER MD 01/29/18 Reviewed Nurses Notes: Yes Old Medical Records Reviewed: Yes Hx Smoking: Yes (1PPDX 30 YEARS- QUIT 2000) Smoking Status: Former Smoker Exposure to Second Hand Smoke?: No Hx Substance Use Disorder: No Hx Alcohol Use: No Constitutional Vital Sign - Last 24 Hours 09/01/18 09/01/18 14:29 14:44 Temp 97.6 Pulse 92 Resp 16 B/P (MAP) 168/98 Pulse Ox 90 O2 Delivery Room Air O2 Flow Rate 2.0 Physical Exam General Appearance: The patient is alert, has no immediate need for airway protection and no current signs of toxicity. Eyes: Pupils equal and round no injection. Respiratory: Chest is non tender, lungs are clear to auscultation. Cardiac: regular rate and rhythm Gastrointestinal: Abdomen is soft and non tender, no masses, bowel sounds normal. Musculoskeletal: Neck: Neck is supple and non tender. Extremities have full range of motion and are non tender. Skin: No rashes or lesions. DIFFERENTIAL DIAGNOSIS: After history and physical exam differential diagnosis was considered for infection, VT, non compliance, need for diabetic education Medical Decision Making Data Points Result Diagram: 09/01/18 1445 09/01/18 1445 Laboratory Hematology Test 09/01/18 14:40 09/01/18 14:45 09/01/18 14:51 09/01/18 17:14 Urine Color Yellow Urine Clarity Clear Urine pH 5.0 pH (4.8-9.5) Urine Specific [place] 1.026 Urine Protein Negative mg/dL (NEGATIVE) Urine Glucose (UA) 500 mg/dL (NEGATIVE) Urine Ketones Trace mg/dL (NEGATIVE) Urine Blood Small (NEGATIVE) Urine Nitrite Negative (NEGATIVE) Urine Bilirubin Negative (NEGATIVE) Urine Urobilinogen Negative mg/dL (0.2-1.9) Urine Leukocyte Esterase Negative (NEGATIVE) Urine RBC 2 /HPF (0-2/HPF) Urine WBC None /HPF (0-5/HPF) Urine Squamous Epithelial Cells Few /LPF (</=FEW) Urine Bacteria Negative /HPF (NONE-FEW) Urine Mucus None /HPF (NONE-FEW) Red Blood Count 5.19 M/uL (4.00-5.60) Mean Corpuscular Volume 90.6 fL (80.0-96.0) Mean Corpuscular Hemoglobin 29.9 pg (26.0-33.0) Mean Corpuscular Hemoglobin Concent 33.1 g/dL (32.0-36.0) Red Cell Distribution Width 14.6 % (11.5-14.5) Mean Platelet Volume 8.9 fL (7.2-11.1) Neutrophils (%) (Auto) 94.8 % (39.4-72.5) Lymphocytes (%) (Auto) 3.6 % (17.6-49.6) Monocytes (%) (Auto) 1.6 % (4.1-12.4) Eosinophils (%) (Auto) 0.0 % (0.4-6.7) Basophils (%) (Auto) 0.0 % (0.3-1.4) Nucleated RBC Relative Count (auto) 0.2 /100WBC Neutrophils # (Auto) 13.1 K/uL (2.0-7.4) Lymphocytes # (Auto) 0.5 K/uL (1.3-3.6) Monocytes # (Auto) 0.2 K/uL (0.3-1.0) Eosinophils # (Auto) 0.0 K/uL (0.0-0.5) Basophils # (Auto) 0.0 K/uL (0.0-0.1) Nucleated RBC Absolute Count (auto) 0.03 K/uL Peripheral Blood Smear No Y/N Sodium Level 135 mmol/L (137-145) Potassium Level 4.4 mmol/L (3.5-5.0) Chloride Level 103 mmol/L (98-107) Carbon Dioxide Level 19 mmol/L (22-30) Blood Urea Nitrogen 14 mg/dl (9-21) Creatinine 0.70 mg/dl (0.66-1.25) Glomerular Filtration Rate Calc > 60.0 Random Glucose 523 mg/dl (75-110) Calcium Level 8.1 mg/dl (8.4-10.2) Total Bilirubin 0.7 mg/dl (0.2-1.3) Aspartate Amino Transf (AST/SGOT) 34 U/L (0-35) Alanine Aminotransferase (ALT/SGPT) 37 U/L (0-56) Alkaline Phosphatase 89 U/L (0-126) Total Protein 6.9 g/dl (6.3-8.2) Albumin 4.1 g/dl (3.5-5.0) Troponin I < 0.012 ng/ml Whole Blood Glucose 365 mg/DL (75-110) Chemistry Test 09/01/18 14:40 09/01/18 14:45 09/01/18 14:51 09/01/18 17:14 Urine Color Yellow Urine Clarity Clear Urine pH 5.0 pH (4.8-9.5) Urine Specific [place] 1.026 Urine Protein Negative mg/dL (NEGATIVE) Urine Glucose (UA) 500 mg/dL (NEGATIVE) Urine Ketones Trace mg/dL (NEGATIVE) Urine Blood Small (NEGATIVE) Urine Nitrite Negative (NEGATIVE) Urine Bilirubin Negative (NEGATIVE) Urine Urobilinogen Negative mg/dL (0.2-1.9) Urine Leukocyte Esterase Negative (NEGATIVE) Urine RBC 2 /HPF (0-2/HPF) Urine WBC None /HPF (0-5/HPF) Urine Squamous Epithelial Cells Few /LPF (</=FEW) Urine Bacteria Negative /HPF (NONE-FEW) Urine Mucus None /HPF (NONE-FEW) White Blood Count 13.9 k/uL (4.5-11.0) Red Blood Count 5.19 M/uL (4.00-5.60) Hemoglobin 15.5 g/dL (14.0-18.0) Hematocrit 47.0 % (42.0-52.0) Mean Corpuscular Volume 90.6 fL (80.0-96.0) Mean Corpuscular Hemoglobin 29.9 pg (26.0-33.0) Mean Corpuscular Hemoglobin Concent 33.1 g/dL (32.0-36.0) Red Cell Distribution Width 14.6 % (11.5-14.5) Platelet Count 304 K/uL (150-450) Mean Platelet Volume 8.9 fL (7.2-11.1) Neutrophils (%) (Auto) 94.8 % (39.4-72.5) Lymphocytes (%) (Auto) 3.6 % (17.6-49.6) Monocytes (%) (Auto) 1.6 % (4.1-12.4) Eosinophils (%) (Auto) 0.0 % (0.4-6.7) Basophils (%) (Auto) 0.0 % (0.3-1.4) Nucleated RBC Relative Count (auto) 0.2 /100WBC Neutrophils # (Auto) 13.1 K/uL (2.0-7.4) Lymphocytes # (Auto) 0.5 K/uL (1.3-3.6) Monocytes # (Auto) 0.2 K/uL (0.3-1.0) Eosinophils # (Auto) 0.0 K/uL (0.0-0.5) Basophils # (Auto) 0.0 K/uL (0.0-0.1) Nucleated RBC Absolute Count (auto) 0.03 K/uL Peripheral Blood Smear No Y/N Glomerular Filtration Rate Calc > 60.0 Calcium Level 8.1 mg/dl (8.4-10.2) Total Bilirubin 0.7 mg/dl (0.2-1.3) Aspartate Amino Transf (AST/SGOT) 34 U/L (0-35) Alanine Aminotransferase (ALT/SGPT) 37 U/L (0-56) Alkaline Phosphatase 89 U/L (0-126) Total Protein 6.9 g/dl (6.3-8.2) Albumin 4.1 g/dl (3.5-5.0) Troponin I < 0.012 ng/ml Whole Blood Glucose 365 mg/DL (75-110) Urinalysis Test 09/01/18 14:40 Urine Color Yellow Urine Clarity Clear Urine pH 5.0 pH (4.8-9.5) Urine Specific [place] 1.026 Urine Protein Negative mg/dL (NEGATIVE) Urine Glucose (UA) 500 mg/dL (NEGATIVE) Urine Ketones Trace mg/dL (NEGATIVE) Urine Blood Small (NEGATIVE) Urine Nitrite Negative (NEGATIVE) Urine Bilirubin Negative (NEGATIVE) Urine Urobilinogen Negative mg/dL (0.2-1.9) Urine Leukocyte Esterase Negative (NEGATIVE) Urine RBC 2 /HPF (0-2/HPF) Urine WBC None /HPF (0-5/HPF) Urine Squamous Epithelial Cells Few /LPF (</=FEW) Urine Bacteria Negative /HPF (NONE-FEW) Urine Mucus None /HPF (NONE-FEW) ED Course/Re-evaluation ED Course Sugar in the 300s after IV fluids and IV insulin. Patient feels well. A second troponin after he has one 13 hours prior, is normal. No evidence of infection. I suspect that he may be confused about his diabetic regimen. I reviewed his regimen with him. He will follow his usual regimen tonight, and follow up with Kirsten Hwang tomorrow Decision to Disposition Date: Sep 01, 2018 Decision to Disposition Time: 18:04 Depart Departure Latest Vital Signs Vital Signs Date Time Temp Pulse Resp B/P (MAP) Pulse Ox O2 Delivery O2 Flow Rate FiO2 09/01/18 14:44 2.0 09/01/18 14:29 97.6 92 16 168/98 90 Room Air Impression: Primary Impression: Hyperglycemia Condition: Stable Disposition: HOME OR SELF-CARE Patient Instructions: Diabetic Hyperglycemia (ED) CHELSEY ROMERO MD Sep 01, 2018 14:22
[2018-09-01 15:39] LABS: PLATELET COUNT, AUTOMATED 304 K/uL (150-450)
[2018-09-01] MEDS ORDERED: INSU HUM REG 100 U/ML(ER ONLY) 10 ML VIAL IV ONE (15:40)
[2018-09-01] MEDS ORDERED: NS(*) 0.9% 1000 ML BAG 1,000 ML IV ONE (15:40)
[2018-09-01 17:30] VITALS: BP 179/81
--- NOTE | 2018-09-01 20:01 | EKG ---
FACILITY: [facility] PATIENT NAME: BRETT BRADLEY : [id number] MR: [id number] V: [id number] EXAM DATE: ORDERING PHYSICIAN: JAMEY VILLASENOR TECHNOLOGIST: Test Reason : chest pressure Blood Pressure : / mmHG Vent. Rate : 091 BPM Atrial Rate : 081 BPM P-R Int : 190 ms QRS Dur : 078 ms QT Int : 372 ms P-R-T Axes : 000 076 051 degrees QTc Int : 457 ms Sinus rhythm with PAC's Baseline artifact in many leads makes interpretation difficult No ST-T abnormalities Relatively unchanged from previous Confirmed by ASHANTI VANESSA ([id number]) on 09/01/2018 9:15:31 PM Referred By: Confirmed By:ASHANTI VANESSA
== END 2018-09-01 18:32 | disposition home or self-care (01) ==
LOC: ER 15:23
DX: E11.65 Type 2 diabetes mellitus with hyperglycemia (principal)
CPT/HCPCS: 36416; 81001; 82948; 84484; 85025; 93005; 96361; 96374; 99284; A9270; J7030; 82040; 82247; 82310; 82374; 82435; 82565; 82947; 84075; 84132; 84155; 84295; 84450; 84460; 84520; J1815

== ENCOUNTER → 2018-09-01 | Outpatient (CLI) | payer MEDICARE, MEDICAID ==
[2016-04-21 13:01] VITALS: BMI 33.5
== END ==
LOC: AMB 14:03
PROVIDERS: ATTEND Nurse Practitioner
DX: E11.65 Type 2 diabetes mellitus with hyperglycemia (principal)
CPT/HCPCS: A0425; A0429

== ENCOUNTER → 2018-09-01 | Outpatient (CLI) | payer MEDICARE, MEDICAID ==
[2016-04-21 13:01] VITALS: BMI 33.5
== END ==
LOC: AMB 02:17
PROVIDERS: ATTEND Nurse Practitioner
DX: R73.9 Hyperglycemia, unspecified (principal); R51 Headache; R07.9 Chest pain, unspecified; I10 Essential (primary) hypertension
CPT/HCPCS: A0425

== ENCOUNTER → 2018-10-13 | Outpatient (CLI) | payer MEDICARE ==
[2016-04-21 13:01] VITALS: BMI 33.5
[~2018-10-13] MED LIST changes: +CHOL200022; -CHOL200085
== END ==
LOC: AMB 17:07
PROVIDERS: ATTEND Nurse Practitioner
DX: E11.65 Type 2 diabetes mellitus with hyperglycemia (principal); I10 Essential (primary) hypertension; G43.909 Migraine, unspecified, not intractable, without status migrainosus
CPT/HCPCS: A0425; A0427

== ENCOUNTER 2018-11-23 11:40 | Emergency (ER) | payer MEDICARE ==
[2016-04-21 13:01] VITALS: Wt 99.8 kg
--- NOTE | 2018-11-23 11:43 | ER Report ---
History and Physical Time Seen By MD: 11:43 HPI/ROS CHIEF COMPLAINT: Fall HISTORY OF PRESENT ILLNESS: This is a 73 year old male. He tripped on the sidewalk at the [employer]. Fell and reached out to catch himself. low back pain. left hip pain. right wrist pain. hit head but no loss of consciousness. No neck pain. Abrasion on left knee with some pain there as well. No dizziness. No headache. Normal vision. No numbness or weakness. Allergies: Coded Allergies: naproxen (Verified Allergy, Severe, CHEST PAIN, RASH, 10/13/18) Penicillins (Verified Allergy, Mild, ITCHING, 10/13/18) Home Meds Active Scripts Hydrocodone Bit/Acetaminophen (HYDROCODON-ACETAMINOPHEN 5-325) 1 Each Tablet, 1 EACH PO Q4H PRN for PAIN, #12 TAB 0 Refills Prov:JAMEY VILLASENOR MD 11/23/18 Insulin Detemir 100 UN/ML PEN (Levemir Flextouch) 100 Unit/1 Ml Insuln.pen, 40 UNITS SUBQ BID, #2 BOX 0 Refills Prov:WILMER NGUYEN APRN PATTERN CHAIN MAKER SUPERVISOR-C 07/17/18 Insulin Lispro 100 Un/Ml Pen (HUMALOG 3 ML PEN) 100 Unit/1 Ml Insuln.pen, 20 UNIT SQ TID, #2 BOX 1 Refill Prov:KIKI CORMIER MD 04/02/18 Pantoprazole Sodium (PANTOPRAZOLE SODIUM) 40 Mg Tablet.dr, 1 TAB PO QDAY, #60 TAB.SR 3 Refills Prov:HERBERT FELIZ MD 02/26/18 Reported Medications Lisinopril (LISINOPRIL) 10 Mg Tablet, 10 MG PO QDAY, TAB 09/01/18 Cholecalciferol (Vitamin D3) (VITAMIN D3) 5,000 Unit Tablet, 5000 UNIT PO DAILY 01/29/18 Ferrous Sulfate (FERROUS SULFATE) 325 Mg Tablet, 325 MG PO DAILY 01/29/18 Acetaminophen (TYLENOL EXTRA STRENGTH) 500 Mg Tablet, 1 TAB PO TID PRN for PAIN, TAB 04/10/17 [place]-3 Fatty Acids/Fish Oil (FISH OIL 1,000 MG SOFTGEL) 1 Each Capsule, 1 EACH PO BID, CAPSULE 04/10/17 [place], Insulin Disposable (Bd Ultra-Fine Pen Needle) 1 Each Dis.needle, EACH 5XD, #100 04/10/17 Albuterol Sulfate 0.083% (ALBUTEROL SULFATE 0.083%) 2.5 Mg/3 Ml Vial.neb, 2.5 MG INH Q8H PRN for WHEEZING, INH 04/10/17 Allopurinol (ZYLOPRIM) 300 Mg Tablet, 1 TAB PO QDAY, TAB 04/10/17 Albuterol Sulfate (Proventil Hfa) 6.7 Gm Aer.w.adap, 2 PUFF INH Q4H PRN for WHEEZING, 0 Refills 09/07/11 Reviewed Nurses Notes: Yes Hx Smoking: Yes (1PPDX 30 YEARS- QUIT 2000) Smoking Status: Former Smoker Exposure to Second Hand Smoke?: No Hx Substance Use Disorder: No Hx Alcohol Use: No Constitutional Vital Sign - Last 24 Hours 11/23/18 11/23/18 11/23/18 11/23/18 11:42 11:43 12:00 12:10 Temp 98.4 Pulse 59 66 Resp 18 11 B/P (MAP) 199/95 199/95 (129) 199/85 (123) Pulse Ox 94 90 O2 Delivery Room Air Physical Exam General Appearance: The patient is alert. No acute distress. Eyes: Pupils are equal, round. Reactive to light. No pallor, injection or icterus. Extraocular movements are intact. ENT: Mucous membranes are moist. Normal oral mucosa. Posterior oropharynx is normal. Neck: Supple and non tender. Respiratory: Breathing easily and unlabored. Lungs are clear to auscultation. Cardiovascular: Regular rate and rhythm. No murmurs, gallops or rubs. Normal capillary refill. Trace edema. Gastrointestinal: Abdomen is soft, nontender. Nondistended. No costovertebral angle tenderness with percussion. Neurological: Alert and oriented x3. Cranial nerves II through XII show no acute deficits on my exam. No focal neurologic deficits in the extremities. Skin: Warm and dry. No rashes. Abrasion on left knee. Musculoskeletal: Pain in ulnar side of right wrist, but no pain over hand or radial side. Pain in left hip with palpation, diffuse, mainly lateral and posterior. Pain in left knee with palpation. Pain in low and mid back. No pain in cervical spine with palpation. Full range of motion. DIFFERENTIAL DIAGNOSIS: After history and physical exam, differential diagnosis was considered for fall with multiple areas of pain. Medical Decision Making EKG/Imaging Imaging CT obtained: Head, cervical spine, thoracic spine, lumbar spine. Results: No acute abnormalities noted. The study was read by the radiologist and I was able to read their report. I viewed the images myself on the PACS system. X-ray: Right wrist, left hip, left knee, chest was obtained. I viewed the images myself on the PACS system. My interpretation of the images is: There is a question of a small avulsion in the right wrist, ulnar side, unable to tell what bone this comes from. The hip and knee and chest x-ray are negative for any acute findings. The radiologist interpretation had no clinically significant variation from this interpretation. ED Course/Re-evaluation Clinical Indication for ER IV: IV Access ED Course Images obtained, splint placed on the right forearm by the senior process control tech. Reevaluated by me. He will follow up with orthopedic surgery for the wrist injury. Home with some Lortab to use for pain as well as ibuprofen as needed. See instructions below Procedure: Right sugar tong forearm half cast placement. A half-cast/splint as noted above was applied. After application of the half- cast, I returned and re-examined the patient. The half-cast was adequately immobilizing the joint and distally the patient's circulation and sensation was intact. Applied by the clinical technologist and reevaluated by myself. Decision to Disposition Date: Nov 23, 2018 Decision to Disposition Time: 14:37 Depart Departure Latest Vital Signs Vital Signs Date Time Temp Pulse Resp B/P (MAP) Pulse Ox O2 Delivery O2 Flow Rate FiO2 11/23/18 12:10 66 11 90 11/23/18 12:00 199/85 (123) 11/23/18 11:42 98.4 Room Air Impression: Primary Impression: Avulsion fracture of right wrist Condition: Improved Disposition: HOME OR SELF-CARE New Scripts Hydrocodone Bit/Acetaminophen (HYDROCODON-ACETAMINOPHEN 5-325) 1 Each Tablet 1 EACH PO Q4H PRN for PAIN, #12 TAB 0 Refills Prov: JAMEY VILLASENOR MD 11/23/18 Patient Instructions: Avulsion Fracture (ED) Additional Instructions: Lortab 5/325, one every 4 hours as needed for pain. Apply ice to the wrist 20 minutes every 1-2 hours while awake. You can use a heating pad on your back and hip. Wear the splint on your wrist until you follow-up with orthopedic surgery. Call [facility] today to schedule an appointment with them. Rest the injured area, keep it elevated while at rest. JAMEY VILLASENOR MD Nov 23, 2018 11:43
--- NOTE | 2018-11-23 13:23 | RADIOLOGY IMAGING REPORT ---
FACILITY: [facility] PATIENT NAME: Nomi Whiting : 1945 MR: [id number] V: [id number] EXAM DATE: ORDERING PHYSICIAN: JAMEY VILLASENOR TECHNOLOGIST: Location: [facility] [place] Patient: Nomi Whiting : 1945 Visit/Account:[id number] Date of Sevice: 11/23/2018 Exam type: CHEST SINGLE AP History: fall, wrist, hip and knee pain Comparison: October 13, 2018. Findings: The lungs are free of acute effusions, infiltrates or edema. There is no evidence of a pneumothorax or pneumomediastinum. The cardiac silhouette appears normal. There are old right-sided rib fracture s IMPRESSION: 1. No acute cardiac pulmonary process is seen Report Dictated By: Shana Orourke MD at 11/23/2018 1:12 PM Report E-Signed By: Shana Orourke MD at 11/23/2018 1:15 PM WSN:[email or web address]
--- NOTE | 2018-11-23 13:27 | RADIOLOGY IMAGING REPORT ---
FACILITY: [facility] PATIENT NAME: Nomi Whiting : 1945 MR: [id number] V: [id number] EXAM DATE: ORDERING PHYSICIAN: JAMEY VILLASENOR TECHNOLOGIST: Location: [facility] Patient: Nomi Whiting : 1945 Visit/Account:[id number] Date of Sevice: 11/23/2018 Exam type: HIP LEFT History: fall, wrist, hip and knee pain Comparison: None. Findings: Two views of the left hip demonstrates no evidence of acute fracture or dislocation. There are mild generative changes of both hip joints. There are extensive vascular calcifications identified in the left thigh IMPRESSION: 1. Mild degenerative changes of the hip joints although no evidence of acute fracture or dislocation involving the left hip Vascular calcifications Report Dictated By: Shana Orourke MD at 11/23/2018 1:15 PM Report E-Signed By: Shana Orourke MD at 11/23/2018 1:16 PM WSN:[email or web address]
[2018-11-23 13:30] VITALS: BP 181/79
--- NOTE | 2018-11-23 13:30 | RADIOLOGY IMAGING REPORT ---
FACILITY: [facility] [place] PATIENT NAME: Nomi Whiting : 1945 MR: [id number] V: [id number] EXAM DATE: ORDERING PHYSICIAN: JAMEY VILLASENOR TECHNOLOGIST: Location: [facility] Patient: Nomi Whiting : 1945 Visit/Account:[id number] Date of Sevice: 11/23/2018 Exam type: KNEE 4 VIEW LEFT History: Fell out of a truck this morning Comparison: None. Findings: Four views the left knee demonstrates no evidence of acute fracture or dislocation.. No significant arthritic changes are seen. There are moderate vascular calcifications present IMPRESSION: 1. No evidence of acute fracture-dislocation involving the left knee Moderate vascular calcifications Report Dictated By: Shana Orourke MD at 11/23/2018 1:17 PM Report E-Signed By: Shana Orourke MD at 11/23/2018 1:18 PM WSN:[email or web address]
--- NOTE | 2018-11-23 13:42 | RADIOLOGY IMAGING REPORT ---
FACILITY: [facility] PATIENT NAME: Nomi Whiting : 1945 MR: [id number] V: [id number] EXAM DATE: ORDERING PHYSICIAN: JAMEY VILLASENOR TECHNOLOGIST: Location: [facility] [place] Patient: Nomi Whiting : 1945 Visit/Account:[id number] Date of Sevice: 11/23/2018 Exam type: XR WRIST 3 OR MORE VIEWS RT History: fall, wrist, hip and knee pain Comparison: None. Findings: On the lateral view a small bony density projects just dorsal to the proximal row carpal bones. This could represent a small avulsion fracture fragment although the donor site is not evident. IMPRESSION: 1. On the lateral view small bony density projects just dorsal to the proximal row carpal bones. Th is could represent a small avulsion fracture fragment although the donor site is not evident. Report Dictated By: Shana Orourke MD at 11/23/2018 1:18 PM Report E-Signed By: Shana Orourke MD at 11/23/2018 1:38 PM WSN:[email or web address]
--- NOTE | 2018-11-23 13:57 | RADIOLOGY IMAGING REPORT ---
FACILITY: [facility] PATIENT NAME: Nomi Whiting : 1945 MR: [id number] V: [id number] EXAM DATE: ORDERING PHYSICIAN: JAMEY VILLASENOR TECHNOLOGIST: Location: [facility] Patient: Nomi Whiting : 1945 Visit/Account:[id number] Date of Sevice: 11/23/2018 CT Head without contrast and CT Cervical spine: Indication: Fall. Headache. Neck pain. Comparison: 09/01/2018. Technique: CT head: Axial CT images were obtained through the brain from the skull base to the verte x without administration of IV contrast. Reformatted coronal and sagittal images were also obtained. Technique: CT cervical spine: Axial CT imaging of the cervical spine was performed. 2-D sagittal and coronal CT reformats were also obtained. One of the following dose optimization techniques was utilized in the performance of this exam: Autom ated exposure control; adjustment of the mA and/or kV according to the patient's size; or use of an i terative reconstruction technique. Specific details can be referenced in the facility's radiology C T exam operational policy. FINDINGS: CT head: No intracranial bleed, midline shift, mass effect, extra-axial fluid collection or hydrocephalus. Age -related cerebral atrophy. Periventricular white matter ischemic changes consistent small vessel dise ase. Ponce/white matter differentiation appears normal. Bony structures show no fractures or lesions. Rightward deviation nasal septum. Sinuses and mastoids visualized are clear. Postsurgical changes to both maxillary sinuses without sequelae. CT cervical spine: The vertebral bodies are aligned. No fracture or facet dislocation. No bony lesions. Mild degenerativ e changes are present including displacement, osteophytes and facet arthropathy. No bony canal stenos is or significant neural foramina narrowing. The endplates are maintained. No obvious disc herniation . Prevertebral soft tissues and surrounding soft tissues are unremarkable. Lung apices are clear. IMPRESSION: 1. CT of the head shows senescent changes without acute abnormality. 2. No acute osseous or acute alignment abnormality of the cervical spine. Report Dictated By: Oz Liu at 11/23/2018 1:37 PM Report E-Signed By: Oz Liu at 11/23/2018 1:49 PM WSN:[id number]
--- NOTE | 2018-11-23 13:57 | RADIOLOGY IMAGING REPORT ---
FACILITY: [facility] PATIENT NAME: Nomi Whiting : 1945 MR: [id number] V: [id number] EXAM DATE: ORDERING PHYSICIAN: JAMEY VILLASENOR TECHNOLOGIST: Location: [facility] [place] Patient: Nomi Whiting : 1945 Visit/Account:[id number] Date of Sevice: 11/23/2018 CT Head without contrast and CT Cervical spine: Indication: Fall. Headache. Neck pain. Comparison: 09/01/2018. Technique: CT head: Axial CT images were obtained through the brain from the skull base to the verte x without administration of IV contrast. Reformatted coronal and sagittal images were also obtained. Technique: CT cervical spine: Axial CT imaging of the cervical spine was performed. 2-D sagittal and coronal CT reformats were also obtained. One of the following dose optimization techniques was utilized in the performance of this exam: Autom ated exposure control; adjustment of the mA and/or kV according to the patient's size; or use of an i terative reconstruction technique. Specific details can be referenced in the facility's radiology C T exam operational policy. FINDINGS: CT head: No intracranial bleed, midline shift, mass effect, extra-axial fluid collection or hydrocephalus. Age -related cerebral atrophy. Periventricular white matter ischemic changes consistent small vessel dise ase. Ponce/white matter differentiation appears normal. Bony structures show no fractures or lesions. Rightward deviation nasal septum. Sinuses and mastoids visualized are clear. Postsurgical changes to both maxillary sinuses without sequelae. CT cervical spine: The vertebral bodies are aligned. No fracture or facet dislocation. No bony lesions. Mild degenerativ e changes are present including displacement, osteophytes and facet arthropathy. No bony canal stenos is or significant neural foramina narrowing. The endplates are maintained. No obvious disc herniation . Prevertebral soft tissues and surrounding soft tissues are unremarkable. Lung apices are clear. IMPRESSION: 1. CT of the head shows senescent changes without acute abnormality. 2. No acute osseous or acute alignment abnormality of the cervical spine. Report Dictated By: Oz Liu at 11/23/2018 1:37 PM Report E-Signed By: Oz Liu at 11/23/2018 1:49 PM WSN:[id number]
--- NOTE | 2018-11-23 14:05 | RADIOLOGY IMAGING REPORT ---
FACILITY: [facility] - [place] PATIENT NAME: Nomi Whiting : 1945 MR: [id number] V: [id number] EXAM DATE: ORDERING PHYSICIAN: JAMEY VILLASENOR TECHNOLOGIST: Location: [facility] [place] Patient: Nomi Whiting : 1945 Visit/Account:[id number] Date of Sevice: 11/23/2018 CT thoracic spine Indication: Back pain after fall. Comparison: None available. Technique: Axial CT imaging of the thoracic spine was performed. 2-D sagittal and coronal CT reforma ts were also obtained.One of the following dose optimization techniques was utilized in the performan ce of this exam: automated exposure control; adjustment of the mA and/or kV according to the patient' s size; or use of an iterative reconstruction technique. Specific details can be referenced in the [facility]'s radiology CT exam operational policy. Findings: The vertebral bodies are aligned. No compression fractures or bony lesions. There is diffuse degenera tive changes including osteophytes, disc space narrowing and facet changes. A more prominent anterior lateral osteophytes. No bony calcinosis. No significant neural foramina narrowing. The endplates are maintained. No obvious disc herniation. Soft tissues of the abdomen and chest are unremarkable to sm all hiatal hernia present. Impression: 1. No acute osseous or acute alignment abnormality of the thoracic spine. Degenerative changes. Report Dictated By: Oz Liu at 11/23/2018 1:49 PM Report E-Signed By: Oz Liu at 11/23/2018 1:56 PM WSN:[id number]
--- NOTE | 2018-11-23 14:12 | RADIOLOGY IMAGING REPORT ---
FACILITY: [facility] [place] PATIENT NAME: Nomi Whiting : 1945 MR: [id number] V: [id number] EXAM DATE: ORDERING PHYSICIAN: JAMEY VILLASENOR TECHNOLOGIST: Location: [facility] Patient: Nomi Whiting : 1945 Visit/Account:[id number] Date of Sevice: 11/23/2018 CT lumbar spine Indication: Back pain after fall. Comparison: 02/20/2015. Technique: Axial CT imaging of the lumbar spine was performed. 2-D sagittal and coronal CT reformats were also obtained.One of the following dose optimization techniques was utilized in the performance of this exam: automated exposure control; adjustment of the mA and/or kV according to the patient's size; or use of an iterative reconstruction technique. Specific details can be referenced in the [facility]'s radiology CT exam operational policy. Findings: The vertebral bodies are aligned. No compression fractures or bony lesions. No spondylolysis. There i s mild diffuse degenerative changes including disc space narrowing, osteophytes and facet arthropathy . No bony calcinosis. The disks show no obvious herniations. There appears to be a broad-based disc b ulge at the L4-5 level which causes mild narrowing of the canal and some neural foramina narrowing bi laterally. The disc may abut up against both exiting nerves. The L3-4 disc may also show mild broad-b ased disc bulge causing mild narrowing of the canal and foramina bilaterally. No significant abutment of the exiting nerves on this exam. No other significant broad-based disc bulge or appreciable canal and neural foramina narrowing. The right adrenal gland shows a soft tissue nodule measuring 2.2 x 2.3 cm with Hounsfield of 30. This is increased from previous 1.7 x 1.1 cm. Soft tissues of the abdomen and pelvis are otherwise unrema rkable. Atherosclerotic calcific changes of the aorta and iliac arteries. Right iliac artery stent is in place. Impression: 1. No acute osseous or acute alignment abnormality of the lumbar spine. 2. Degenerative disc and osseous changes as above. 3. Right adrenal gland soft tissue nodule. This is more prominent than the previous examination. Sugg est a follow-up MRI of the adrenal glands without and with contrast for further evaluation. Report Dictated By: Oz Liu at 11/23/2018 1:56 PM Report E-Signed By: Oz Liu at 11/23/2018 2:06 PM WSN:[id number]
[2018-11-23] MEDS ORDERED: MORPHINE 2 MG/ML SYR IVP ONE (14:15)
[2018-11-23] MEDS ORDERED: LOR5/325 PO (14:38)
[2018-11-23] MEDS ORDERED: APAP/HYDROCODONE 325/5 TAB PO ONE (14:40)
== END 2018-11-23 14:48 | disposition home or self-care (01) ==
LOC: ER 11:55
DX: S62.101A Fracture of unspecified carpal bone, right wrist, initial encounter for closed fracture (principal); M54.5 Low back pain; M25.552 Pain in left hip; M54.2 Cervicalgia; W18.30XA Fall on same level, unspecified, initial encounter
CPT/HCPCS: 29125; 70450; 71045; 72125; 72128; 72131; 73110; 73502; 73564; 99284; A4565; A9270

== ENCOUNTER → 2018-11-23 | Outpatient (CLI) | payer MEDICARE ==
[2016-04-21 13:01] VITALS: BMI 33.5
== END ==
LOC: AMB 11:15
PROVIDERS: ATTEND Nurse Practitioner
DX: M54.5 Low back pain (principal); M25.552 Pain in left hip; M25.531 Pain in right wrist
CPT/HCPCS: A0425; A0429

== ENCOUNTER 2018-12-09 09:03 | Emergency (ER) | payer MEDICARE ==
[2016-04-21 13:01] VITALS: Wt 99.8 kg
--- NOTE | 2018-12-09 09:20 | ER Report ---
History and Physical Time Seen By MD: 09:16 Hx. of Stated Complaint: PATIENT REPORTS FALLING 4 TO 5 WEEKS AGO AND CHIPPING THE BONE IN THE WRIST. PATIENT REPORTS NOT FEELING ANY BETTER AND STILL HURTS TO MOVE OR BEND IT HPI/ROS CHIEF COMPLAINT: Right wrist pain HISTORY OF PRESENT ILLNESS: 73-year-old male fell 4 weeks ago onto his outstretched right wrist evidently had a fracture of the distal ulnar bone this was to follow up with a orthopedic physician as an outpatient unfortunately has an outstanding bill reportedly and unable to pay the bills of the refusing to see him. Patient states the pain is continuing still worse localized to the lateral aspect of the right wrist neurovascular intact. Extension rotation and flexion no new falls no new complaints REVIEW OF SYSTEMS: Respiratory: No cough, no dyspnea. Cardiovascular: No chest pain, no palpitations. Gastrointestinal: No vomiting, no abdominal pain. Musculoskeletal: Right wrist pain Remainder of the 14 system rev: Yes Allergies: Coded Allergies: naproxen (Verified Allergy, Severe, CHEST PAIN, RASH, 10/13/18) Penicillins (Verified Allergy, Mild, ITCHING, 10/13/18) Home Meds Active Scripts Hydrocodone Bit/Acetaminophen (HYDROCODON-ACETAMINOPHEN 5-325) 1 Each Tablet, 1 EACH PO Q4H PRN for PAIN, #12 TAB 0 Refills Prov:JAMEY VILLASENOR MD 11/23/18 Insulin Detemir 100 UN/ML PEN (Levemir Flextouch) 100 Unit/1 Ml Insuln.pen, 40 UNITS SUBQ BID, #2 BOX 0 Refills Prov:WILMER NGUYEN APRN [employer] 07/17/18 Insulin Lispro 100 Un/Ml Pen (HUMALOG 3 ML PEN) 100 Unit/1 Ml Insuln.pen, 20 UNIT SQ TID, #2 BOX 1 Refill Prov:KIKI CORMIER MD 04/02/18 Pantoprazole Sodium (PANTOPRAZOLE SODIUM) 40 Mg Tablet.dr, 1 TAB PO QDAY, #60 TAB.SR 3 Refills Prov:HERBERT FELIZ MD 02/26/18 Reported Medications Lisinopril (LISINOPRIL) 10 Mg Tablet, 10 MG PO QDAY, TAB 09/01/18 Cholecalciferol (Vitamin D3) (VITAMIN D3) 5,000 Unit Tablet, 5000 UNIT PO DAILY 01/29/18 Ferrous Sulfate (FERROUS SULFATE) 325 Mg Tablet, 325 MG PO DAILY 01/29/18 Acetaminophen (TYLENOL EXTRA STRENGTH) 500 Mg Tablet, 1 TAB PO TID PRN for PAIN, TAB 04/10/17 [place]-3 Fatty Acids/Fish Oil (FISH OIL 1,000 MG SOFTGEL) 1 Each Capsule, 1 EACH PO BID, CAPSULE 04/10/17 [place], Insulin Disposable (Bd Ultra-Fine Pen Needle) 1 Each Dis.needle, EACH 5XD, #100 04/10/17 Albuterol Sulfate 0.083% (ALBUTEROL SULFATE 0.083%) 2.5 Mg/3 Ml Vial.neb, 2.5 MG INH Q8H PRN for WHEEZING, INH 04/10/17 Allopurinol (ZYLOPRIM) 300 Mg Tablet, 1 TAB PO QDAY, TAB 04/10/17 Albuterol Sulfate (Proventil Hfa) 6.7 Gm Aer.w.adap, 2 PUFF INH Q4H PRN for WHEEZING, 0 Refills 09/07/11 Reviewed Nurses Notes: Yes Old Medical Records Reviewed: Yes Hx Smoking: Yes (1PPDX 30 YEARS- QUIT 2000) Smoking Status: Former Smoker Exposure to Second Hand Smoke?: No Hx Substance Use Disorder: No Hx Alcohol Use: No Constitutional Vital Sign - Last 24 Hours 12/09/18 09:08 Temp 97.8 Pulse 90 Resp 16 Pulse Ox 93 O2 Delivery Room Air Physical Exam General appearance: Alert no distress. Respiratory: Chest is non tender, lungs are clear to auscultation. Cardiac: Regular rate and rhythm [ ] Right wrist emanation the right wrist shows some pain with palpation of the lateral aspect of the right wrist ulnar bone pain with extension pain with flexion and lateral supination neurovascularly intact DIFFERENTIAL DIAGNOSIS: After history and physical exam differential diagnosis was considered for right wrist fracture versus sprain Medical Decision Making ED Course/Re-evaluation ED Course ED course any 3-year-old male x-ray does confirm an avulsion fracture of the right distal radial ulnar bone patient will be discharged with a wrist splint orthopedic follow-up he does have concerns about his ability to navigate financial aspects of it this is something only to deal with his own I will try to advocate for him to get a follow-up appointment Decision to Disposition Date: Dec 09, 2018 Decision to Disposition Time: 09:55 Depart Departure Latest Vital Signs Vital Signs Date Time Temp Pulse Resp B/P (MAP) Pulse Ox O2 Delivery O2 Flow Rate FiO2 12/09/18 09:08 97.8 90 16 93 Room Air Impression: Primary Impression: Avulsion fracture of right wrist Condition: Improved Disposition: HOME OR SELF-CARE Referrals: BRYAN VALDES MD 2 Days Patient Instructions: Wrist Fracture in Adults (DC) LAVELLE KYLE MD Dec 09, 2018 09:20
--- NOTE | 2018-12-09 09:36 | RADIOLOGY IMAGING REPORT ---
FACILITY: [facility] PATIENT NAME: Nomi Whiting : 1945 MR: [id number] V: [id number] EXAM DATE: ORDERING PHYSICIAN: LAVELLE KYLE TECHNOLOGIST: Location: [facility] Patient: Nomi Whiting : 1945 Visit/Account:[id number] Date of Sevice: 12/09/2018 XR WRIST 3 OR MORE VIEWS RT History: Fell 4 weeks ago. Comparison study: November 23, 2018. Findings: Again noted is a dorsal avulsion fracture probably from the triquetrum. There is again sof t tissue swelling. The degree of distraction has slightly increased. No additional fractures are seen . There are mild findings of osteoarthrosis involving the right first CMC joint. IMPRESSION: 1. Again noted is an avulsion-type fracture seen only on the lateral projection that likely represent s injury of the triquetrum. There is associated soft tissue swelling. 2. 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 Report Dictated By: Akin Riojas MD at 12/09/2018 9:28 AM Report E-Signed By: Akin Riojas MD at 12/09/2018 9:30 AM WSN:[id number]
[2018-12-09 10:08] VITALS: BP 168/92
== END 2018-12-09 10:09 | disposition home or self-care (01) ==
LOC: ER 09:31
DX: S52.501A Unspecified fracture of the lower end of right radius, initial encounter for closed fracture (principal)
CPT/HCPCS: 73110; 99283; L3908

== ENCOUNTER 2019-01-02 10:02 | Emergency (ER) | payer MEDICARE ==
[2016-04-21 13:01] VITALS: Wt 99.9 kg
[~2019-01-02 10:02] MED LIST changes: -ONDA4TAB9 PO
--- NOTE | 2019-01-02 10:03 | ER Report ---
History and Physical Time Seen By MD: 10:03 HPI/ROS CHIEF COMPLAINT: Headache 3 days HISTORY OF PRESENT ILLNESS: Patient is a 73-year-old male here with complaints of headache for the past 3 days now with mild abdominal pain. Patient is afebri le, hemodynamically stable. Denies recent trauma, anticoagulant use. Patient describes headache as frontal in distribution without visual disturbance. Denies neck stiffness, neck pain. REVIEW OF SYSTEMS: Constitutional: No fever, no chills. Eyes: No discharge. ENT: No sore throat. Cardiovascular: No chest pain, no palpitations. Respiratory: No cough, no shortness of breath. Gastrointestinal: + Mild abdominal pain, no vomiting. Genitourinary: No hematuria. Musculoskeletal: No back pain. Skin: No rashes. Neurological: + headache. Allergies: Coded Allergies: naproxen (Verified Allergy, Severe, CHEST PAIN, RASH, 10/13/18) Penicillins (Verified Allergy, Mild, ITCHING, 10/13/18) Home Meds Active Scripts Hydrocodone Bit/Acetaminophen (HYDROCODON-ACETAMINOPHEN 5-325) 1 Each Tablet, 1 EACH PO Q4H PRN for PAIN, #12 TAB 0 Refills Prov:JAMEY VILLASENOR MD 11/23/18 Insulin Detemir 100 UN/ML PEN (Levemir Flextouch) 100 Unit/1 Ml Insuln.pen, 40 UNITS SUBQ BID, #2 BOX 0 Refills Prov:WILMER NGUYEN APRN [employer] 07/17/18 Insulin Lispro 100 Un/Ml Pen (HUMALOG 3 ML PEN) 100 Unit/1 Ml Insuln.pen, 20 UNIT SQ TID, #2 BOX 1 Refill Prov:KIKI CORMIER MD 04/02/18 Pantoprazole Sodium (PANTOPRAZOLE SODIUM) 40 Mg Tablet.dr, 1 TAB PO QDAY, #60 TAB.SR 3 Refills Prov:HERBERT FELIZ MD 02/26/18 Reported Medications Lisinopril (LISINOPRIL) 10 Mg Tablet, 10 MG PO QDAY, TAB 09/01/18 Cholecalciferol (Vitamin D3) (VITAMIN D3) 5,000 Unit Tablet, 5000 UNIT PO DAILY 01/29/18 Ferrous Sulfate (FERROUS SULFATE) 325 Mg Tablet, 325 MG PO DAILY 01/29/18 Acetaminophen (TYLENOL EXTRA STRENGTH) 500 Mg Tablet, 1 TAB PO TID PRN for PAIN, TAB 04/10/17 [place]-3 Fatty Acids/Fish Oil (FISH OIL 1,000 MG SOFTGEL) 1 Each Capsule, 1 EACH PO BID, CAPSULE 04/10/17 [place], Insulin Disposable (Bd Ultra-Fine Pen Needle) 1 Each Dis.needle, EACH 5XD, #100 04/10/17 Albuterol Sulfate 0.083% (ALBUTEROL SULFATE 0.083%) 2.5 Mg/3 Ml Vial.neb, 2.5 MG INH Q8H PRN for WHEEZING, INH 04/10/17 Allopurinol (ZYLOPRIM) 300 Mg Tablet, 1 TAB PO QDAY, TAB 04/10/17 Albuterol Sulfate (Proventil Hfa) 6.7 Gm Aer.w.adap, 2 PUFF INH Q4H PRN for WHEEZING, 0 Refills 09/07/11 Hx Smoking: Yes (1PPDX 30 YEARS- QUIT 2000) Smoking Status: Former Smoker Exposure to Second Hand Smoke?: No Hx Substance Use Disorder: No Hx Alcohol Use: No Constitutional Vital Sign - Last 24 Hours 01/02/19 01/02/19 01/02/19 01/02/19 10:09 10:15 10:36 10:45 Temp 98.1 Pulse 71 75 65 Resp 18 B/P (MAP) 197/87 181/73 (109) Pulse Ox 91 88 90 O2 Delivery Room Air 01/02/19 01/02/19 01/02/19 01/02/19 11:15 11:30 11:45 11:50 Pulse 66 62 57 B/P (MAP) 198/80 (119) Pulse Ox 94 96 97 01/02/19 12:05 Pulse 63 Pulse Ox 89 Physical Exam General Appearance: The patient is alert, has no immediate need for airway protection and no signs of toxicity. NAD Eyes: Pupils equal and round no pallor or injection. ENT, Mouth: Mucous membranes are moist. Respiratory: There are no retractions, lungs are clear to auscultation. Cardiovascular: Regular rate and rhythm. Gastrointestinal: Abdomen is soft and non tender, no masses, bowel sounds normal. Neurological: No focal neuro deficits Skin: Warm and dry, no rashes. Musculoskeletal: Neck is supple non tender. Extremities are nontender, nonswollen and have full range of motion. DIFFERENTIAL DIAGNOSIS: After history and physical exam differential diagnosis was considered for headache including but not limited to subarachnoid hemorrhage, migraine headache, tension headache and infectious causes such as meningitis, pharyngitis and sinusitis. Medical Decision Making Data Points Result Diagram: 01/02/19 1020 01/02/19 1020 Laboratory Hematology Test 01/02/19 10:20 Red Blood Count 4.81 M/uL (4.00-5.60) Mean Corpuscular Volume 88.5 fL (80.0-96.0) Mean Corpuscular Hemoglobin 30.3 pg (26.0-33.0) Mean Corpuscular Hemoglobin Concent 34.2 g/dL (32.0-36.0) Red Cell Distribution Width 14.1 % (11.5-14.5) Mean Platelet Volume 8.3 fL (7.2-11.1) Neutrophils (%) (Auto) 72.4 % (39.4-72.5) Lymphocytes (%) (Auto) 16.3 % (17.6-49.6) Monocytes (%) (Auto) 8.8 % (4.1-12.4) Eosinophils (%) (Auto) 1.6 % (0.4-6.7) Basophils (%) (Auto) 0.9 % (0.3-1.4) Nucleated RBC Relative Count (auto) 0.0 /100WBC Neutrophils # (Auto) 7.3 K/uL (2.0-7.4) Lymphocytes # (Auto) 1.6 K/uL (1.3-3.6) Monocytes # (Auto) 0.9 K/uL (0.3-1.0) Eosinophils # (Auto) 0.2 K/uL (0.0-0.5) Basophils # (Auto) 0.1 K/uL (0.0-0.1) Nucleated RBC Absolute Count (auto) 0.00 K/uL Peripheral Blood Smear No Y/N Erythrocyte Sedimentation Rate 11 mm/HOUR (0-20) Sodium Level 140 mmol/L (137-145) Potassium Level 3.8 mmol/L (3.5-5.0) Chloride Level 103 mmol/L (98-107) Carbon Dioxide Level 26 mmol/L (22-30) Blood Urea Nitrogen 17 mg/dl (9-21) Creatinine 0.60 mg/dl (0.66-1.25) Glomerular Filtration Rate Calc > 60.0 Random Glucose 150 mg/dl (75-110) Lactate 2.0 mmol/L (0.7-2.1) Calcium Level 8.5 mg/dl (8.4-10.2) Total Bilirubin 0.5 mg/dl (0.2-1.3) Aspartate Amino Transf (AST/SGOT) 12 U/L (0-35) Alanine Aminotransferase (ALT/SGPT) 27 U/L (0-56) Alkaline Phosphatase 124 U/L (0-126) C-Reactive Protein 0.9 mg/dl (<1.0) Total Protein 6.5 g/dl (6.3-8.2) Albumin 4.0 g/dl (3.5-5.0) Lipase 49 U/L (23-300) Chemistry Test 01/02/19 10:20 White Blood Count 10.0 k/uL (4.5-11.0) Red Blood Count 4.81 M/uL (4.00-5.60) Hemoglobin 14.6 g/dL (14.0-18.0) Hematocrit 42.6 % (42.0-52.0) Mean Corpuscular Volume 88.5 fL (80.0-96.0) Mean Corpuscular Hemoglobin 30.3 pg (26.0-33.0) Mean Corpuscular Hemoglobin Concent 34.2 g/dL (32.0-36.0) Red Cell Distribution Width 14.1 % (11.5-14.5) Platelet Count 292 K/uL (150-450) Mean Platelet Volume 8.3 fL (7.2-11.1) Neutrophils (%) (Auto) 72.4 % (39.4-72.5) Lymphocytes (%) (Auto) 16.3 % (17.6-49.6) Monocytes (%) (Auto) 8.8 % (4.1-12.4) Eosinophils (%) (Auto) 1.6 % (0.4-6.7) Basophils (%) (Auto) 0.9 % (0.3-1.4) Nucleated RBC Relative Count (auto) 0.0 /100WBC Neutrophils # (Auto) 7.3 K/uL (2.0-7.4) Lymphocytes # (Auto) 1.6 K/uL (1.3-3.6) Monocytes # (Auto) 0.9 K/uL (0.3-1.0) Eosinophils # (Auto) 0.2 K/uL (0.0-0.5) Basophils # (Auto) 0.1 K/uL (0.0-0.1) Nucleated RBC Absolute Count (auto) 0.00 K/uL Peripheral Blood Smear No Y/N Erythrocyte Sedimentation Rate 11 mm/HOUR (0-20) Glomerular Filtration Rate Calc > 60.0 Lactate 2.0 mmol/L (0.7-2.1) Calcium Level 8.5 mg/dl (8.4-10.2) Total Bilirubin 0.5 mg/dl (0.2-1.3) Aspartate Amino Transf (AST/SGOT) 12 U/L (0-35) Alanine Aminotransferase (ALT/SGPT) 27 U/L (0-56) Alkaline Phosphatase 124 U/L (0-126) C-Reactive Protein 0.9 mg/dl (<1.0) Total Protein 6.5 g/dl (6.3-8.2) Albumin 4.0 g/dl (3.5-5.0) Lipase 49 U/L (23-300) EKG/Imaging Imaging PATIENT NAME: Nomi Whiting : 1945 MR: [id number] V: [id number] EXAM DATE: ORDERING PHYSICIAN: SAI BRUNSON TECHNOLOGIST: Location: [facility] [place] Patient: Nomi Whiting : 1945 Visit/Account:[id number] Date of Sevice: 01/02/2019 EXAMINATION: CT Head Without Contrast 01/02/2019 10:13 AM HISTORY: Headache TECHNIQUE: Contiguous axial images were obtained from the skull base to the vertex without intravenous contrast. One of the following dose optimization techniques was utilized in the performance of this exam: Automated exposure control; adjustment of the mA and/or kV according to the patient's size; or use of an iterative reconstruction technique. Specific details can be referenced in the facility's radiology CT exam operational policy. COMPARISON STUDIES: 11/23/2018 FINDINGS: Ventricles / sulci / fissures: Enlarged but within normal limits for age. Masses / hemorrhage / midline shift: negative White matter: Moderate number of white matter lucencies, non-specific and age appropriate. Ponce-white differentiation: negative Extra-axial spaces: negative Dural venous sinuses / arterial structures: negative Skull base / calvarium: No acute bony injury. Previous cataract surgery bilaterally. Visualized mastoid air cells / paranasal sinuses: No acute finding. Rightward nasal septal deviation. Minimal right mastoid fluid is similar to previous. IMPRESSION: Unremarkable head CT for age. No evidence of mass, acute ischemia or hemorrhage. ED Course/Re-evaluation ED Course Patient is a 73-year-old male here with complaints of headache for 3 days, mild abdominal pain. Patient was given IV fluid bolus, Reglan, Toradol, fentanyl for symptom management. CT imaging of the head showed no acute findings. Labs including CBC, CMP, lactate, ESR, CRP were all found to be normal. I updated the patient regarding these findings. Recommended close PCP follow-up. Return precautions provided. Decision to Disposition Date: Jan 02, 2019 Decision to Disposition Time: 12:44 Depart Departure Latest Vital Signs Vital Signs Date Time Temp Pulse Resp B/P (MAP) Pulse Ox O2 Delivery O2 Flow Rate FiO2 01/02/19 12:05 63 89 01/02/19 11:30 198/80 (119) 01/02/19 10:09 98.1 18 Room Air Impression: Primary Impression: Headache Condition: Improved Disposition: HOME OR SELF-CARE Patient Instructions: Acute Headache (ED) Additional Instructions: Please drink plenty of water. Please follow-up with your primary care provider in the next 24-48 hours for repeat evaluation. Please return immediately if you develop fevers, visual changes, inability to keep down food or fluids. SAI BRUNSON DO Jan 02, 2019 10:03
[2019-01-02] MEDS ORDERED: NS(*) 0.9% 1000 ML BAG 1,000 ML IV ONE (10:13)
[2019-01-02] MEDS ORDERED: METOCLOPRAMIDE 10 MG/2 ML SDV IVP ONE (10:15)
[2019-01-02] MEDS ORDERED: KETOROLAC 30 MG/ML VIAL IVP ONE (10:15)
[2019-01-02 10:44] LABS: PLATELET COUNT, AUTOMATED 292 K/uL (150-450)
--- NOTE | 2019-01-02 11:26 | RADIOLOGY IMAGING REPORT ---
FACILITY: [facility] - [place] PATIENT NAME: Nomi Whiting : 1945 MR: [id number] V: [id number] EXAM DATE: ORDERING PHYSICIAN: SAI BRUNSON TECHNOLOGIST: Location: [facility] [place] Patient: Nomi Whiting : 1945 Visit/Account:[id number] Date of Sevice: 01/02/2019 EXAMINATION: CT Head Without Contrast 01/02/2019 10:13 AM HISTORY: Headache TECHNIQUE: Contiguous axial images were obtained from the skull base to the vertex without intraven ous contrast. One of the following dose optimization techniques was utilized in the performance of this exam: Autom ated exposure control; adjustment of the mA and/or kV according to the patient's size; or use of an i terative reconstruction technique. Specific details can be referenced in the facility's radiology C T exam operational policy. COMPARISON STUDIES: 11/23/2018 FINDINGS: Ventricles / sulci / fissures: Enlarged but within normal limits for age. Masses / hemorrhage / midline shift: negative White matter: Moderate number of white matter lucencies, non-specific and age appropriate. Ponce-white differentiation: negative Extra-axial spaces: negative Dural venous sinuses / arterial structures: negative Skull base / calvarium: No acute bony injury. Previous cataract surgery bilaterally. Visualized mastoid air cells / paranasal sinuses: No acute finding. Rightward nasal septal deviation. Minimal right mastoid fluid is similar to previous. IMPRESSION: Unremarkable head CT for age. No evidence of mass, acute ischemia or hemorrhage. Report Dictated By: Miquel Macedo MD at 01/02/2019 11:17 AM Report E-Signed By: Miquel Macedo MD at 01/02/2019 11:21 AM WSN:[id number]
[2019-01-02] MEDS ORDERED: fentaNYL CITR 100 MCG/2 ML AMP IVP ONE (11:40)
[2019-01-02 12:45] VITALS: BP 181/112
== END 2019-01-02 12:46 | disposition home or self-care (01) ==
LOC: ER 10:08
DX: R51 Headache (principal)
CPT/HCPCS: 70450; 83605; 83690; 85025; 85651; 86140; 96361; 96374; 96375; 99284; J1885; J2765; J3010; J7030; 82040; 82247; 82310; 82374; 82435; 82565; 82947; 84075; 84132; 84155; 84295; 84450; 84460; 84520

== ENCOUNTER → 2019-01-02 | Outpatient (CLI) | payer MEDICARE ==
[2016-04-21 13:01] VITALS: BMI 33.5
[~2019-01-02] MED LIST changes: +ONDA4TAB9 PO
== END ==
LOC: AMB 09:46
PROVIDERS: ATTEND Nurse Practitioner
DX: R51 Headache (principal); R10.32 Left lower quadrant pain; R10.12 Left upper quadrant pain
CPT/HCPCS: A0425; A0427

== ENCOUNTER 2019-01-04 13:53 | Emergency (ER) | payer MEDICARE ==
[2016-04-21 13:01] VITALS: Wt 99.8 kg
--- NOTE | 2019-01-04 15:06 | ER Report ---
History and Physical Time Seen By MD: 15:05 Hx. of Stated Complaint: bs 450+ HPI/ROS CHIEF COMPLAINT: Blood sugar elevation HISTORY OF PRESENT ILLNESS: Patient is a 73-year-old male who was recently here in the emergency department on January 02 for evaluation of headache and some abdominal pain. Both these symptoms have now resolved. Patient states over the past few weeks his blood sugars have been out of control states that his blood sugar today was in the upper 400s and because he was feeling lightheaded he presented to the emergency department for evaluation. He denies any fevers or chills. He states currently no headache no chest pain and no abdominal pain. She states he's eating as usual and taking his insulin as directed. REVIEW OF SYSTEMS: Constitutional: No fever, no chills. Generalized weakness and lightheadedness Eyes: No discharge. ENT: No sore throat. Cardiovascular: No chest pain, no palpitations. Respiratory: No cough, no shortness of breath. Gastrointestinal: No abdominal pain, no vomiting. Genitourinary: No hematuria. Musculoskeletal: No back pain. Skin: No rashes. Neurological: No headache. Allergies: Coded Allergies: naproxen (Verified Allergy, Severe, CHEST PAIN, RASH, 10/13/18) Penicillins (Verified Allergy, Mild, ITCHING, 10/13/18) Home Meds Active Scripts Hydrocodone Bit/Acetaminophen (HYDROCODON-ACETAMINOPHEN 5-325) 1 Each Tablet, 1 EACH PO Q4H PRN for PAIN, #12 TAB 0 Refills Prov:JAMEY VILLASENOR MD 11/23/18 Insulin Detemir 100 UN/ML PEN (Levemir Flextouch) 100 Unit/1 Ml Insuln.pen, 40 UNITS SUBQ BID, #2 BOX 0 Refills Prov:WILMER NGUYEN APRN LOCAL TELEPHONE OPERATOR-C 07/17/18 Insulin Lispro 100 Un/Ml Pen (HUMALOG 3 ML PEN) 100 Unit/1 Ml Insuln.pen, 20 UNIT SQ TID, #2 BOX 1 Refill Prov:KIKI CORMIER MD 04/02/18 Pantoprazole Sodium (PANTOPRAZOLE SODIUM) 40 Mg Tablet.dr, 1 TAB PO QDAY, #60 TAB.SR 3 Refills Prov:HERBERT FELIZ MD 02/26/18 Reported Medications Lisinopril (LISINOPRIL) 10 Mg Tablet, 10 MG PO QDAY, TAB 09/01/18 Cholecalciferol (Vitamin D3) (VITAMIN D3) 5,000 Unit Tablet, 5000 UNIT PO DAILY 01/29/18 Ferrous Sulfate (FERROUS SULFATE) 325 Mg Tablet, 325 MG PO DAILY 01/29/18 Acetaminophen (TYLENOL EXTRA STRENGTH) 500 Mg Tablet, 1 TAB PO TID PRN for PAIN, TAB 04/10/17 [place]-3 Fatty Acids/Fish Oil (FISH OIL 1,000 MG SOFTGEL) 1 Each Capsule, 1 EACH PO BID, CAPSULE 04/10/17 [place], Insulin Disposable (Bd Ultra-Fine Pen Needle) 1 Each Dis.needle, EACH 5XD, #100 04/10/17 Albuterol Sulfate 0.083% (ALBUTEROL SULFATE 0.083%) 2.5 Mg/3 Ml Vial.neb, 2.5 MG INH Q8H PRN for WHEEZING, INH 04/10/17 Allopurinol (ZYLOPRIM) 300 Mg Tablet, 1 TAB PO QDAY, TAB 04/10/17 Albuterol Sulfate (Proventil Hfa) 6.7 Gm Aer.w.adap, 2 PUFF INH Q4H PRN for WHEEZING, 0 Refills 09/07/11 Past Medical/Surgical History Past medical history for reactive airways disease and insulin-dependent type II diabetes Hx Smoking: Yes (1PPDX 30 YEARS- QUIT 2000) Smoking Status: Former Smoker Exposure to Second Hand Smoke?: No Hx Substance Use Disorder: No Hx Alcohol Use: No Constitutional Vital Sign - Last 24 Hours 01/04/19 01/04/19 01/04/19 14:13 15:08 16:40 Temp 98.6 97.7 Pulse 87 76 Resp 20 20 B/P (MAP) 190/87 193/88 (123) 185/85 (118) Pulse Ox 89 88 O2 Delivery Room Air Physical Exam General/Constitutional: Patient is awake, alert, nontoxic and in no acute resp iratory distress. Head: Normocephalic and atraumatic. Eyes: Conjunctival clear, Ears:External canals are clear. Tympanic membranes are clear with normal landmarks and light reflex. Nares: No rhinorrhea or bleeding. Turbinates are pink and moist. Oropharyngeal: Mucous membranes are moist. Neck: Supple, no adenopathy. Cardiovascular: Heart is regular rate and rhythm without audible murmurs, rubs o r gallops. Pulmonary: Lungs are clear to auscultation bilaterally. There are no wheezes, rales, or rhonchi. Chest rise is symmetrical Abdomen: Soft, nontender, no guarding or peritoneal signs. Extremities: No gross deformities, No peripheral cyanosis. Able to move all 4 extremities. Neuro: Alert and oriented X3, Skin: No rashes, skin is warm dry and well perfused. Medical Decision Making Data Points Result Diagram: 01/04/19 1525 01/04/19 1525 Laboratory Hematology Test 01/04/19 15:25 01/04/19 16:18 01/04/19 16:43 Red Blood Count 4.73 M/uL (4.00-5.60) Mean Corpuscular Volume 88.8 fL (80.0-96.0) Mean Corpuscular Hemoglobin 29.8 pg (26.0-33.0) Mean Corpuscular Hemoglobin Concent 33.5 g/dL (32.0-36.0) Red Cell Distribution Width 14.1 % (11.5-14.5) Mean Platelet Volume 8.3 fL (7.2-11.1) Neutrophils (%) (Auto) 69.1 % (39.4-72.5) Lymphocytes (%) (Auto) 17.0 % (17.6-49.6) Monocytes (%) (Auto) 11.2 % (4.1-12.4) Eosinophils (%) (Auto) 1.9 % (0.4-6.7) Basophils (%) (Auto) 0.8 % (0.3-1.4) Nucleated RBC Relative Count (auto) 0.0 /100WBC Neutrophils # (Auto) 5.8 K/uL (2.0-7.4) Lymphocytes # (Auto) 1.4 K/uL (1.3-3.6) Monocytes # (Auto) 0.9 K/uL (0.3-1.0) Eosinophils # (Auto) 0.2 K/uL (0.0-0.5) Basophils # (Auto) 0.1 K/uL (0.0-0.1) Nucleated RBC Absolute Count (auto) 0.00 K/uL Sodium Level 139 mmol/L (137-145) Potassium Level 3.5 mmol/L (3.5-5.0) Chloride Level 105 mmol/L (98-107) Carbon Dioxide Level 25 mmol/L (22-30) Blood Urea Nitrogen 12 mg/dl (9-21) Creatinine 0.70 mg/dl (0.66-1.25) Glomerular Filtration Rate Calc > 60.0 Random Glucose 276 mg/dl (75-110) Calcium Level 8.1 mg/dl (8.4-10.2) Total Bilirubin 0.3 mg/dl (0.2-1.3) Aspartate Amino Transf (AST/SGOT) 14 U/L (0-35) Alanine Aminotransferase (ALT/SGPT) 27 U/L (0-56) Alkaline Phosphatase 151 U/L (0-126) Total Protein 5.8 g/dl (6.3-8.2) Albumin 3.5 g/dl (3.5-5.0) Lipase 48 U/L (23-300) Urine Color Straw Urine Clarity Clear Urine pH 6.0 pH (4.8-9.5) Urine Specific [place] 1.008 Urine Protein Negative mg/dL (NEGATIVE) Urine Glucose (UA) 500 mg/dL (NEGATIVE) Urine Ketones Negative mg/dL (NEGATIVE) Urine Blood Negative (NEGATIVE) Urine Nitrite Negative (NEGATIVE) Urine Bilirubin Negative (NEGATIVE) Urine Urobilinogen Negative mg/dL (0.2-1.9) Urine Leukocyte Esterase Negative (NEGATIVE) Urine RBC <1 /HPF (0-2/HPF) Urine WBC <1 /HPF (0-5/HPF) Urine Squamous Epithelial Cells Few /LPF (</=FEW) Urine Bacteria Negative /HPF (NONE-FEW) Urine Mucus None /HPF (NONE-FEW) Whole Blood Glucose 217 mg/DL (75-110) Chemistry Test 01/04/19 15:25 01/04/19 16:18 01/04/19 16:43 White Blood Count 8.4 k/uL (4.5-11.0) Red Blood Count 4.73 M/uL (4.00-5.60) Hemoglobin 14.1 g/dL (14.0-18.0) Hematocrit 42.0 % (42.0-52.0) Mean Corpuscular Volume 88.8 fL (80.0-96.0) Mean Corpuscular Hemoglobin 29.8 pg (26.0-33.0) Mean Corpuscular Hemoglobin Concent 33.5 g/dL (32.0-36.0) Red Cell Distribution Width 14.1 % (11.5-14.5) Platelet Count 294 K/uL (150-450) Mean Platelet Volume 8.3 fL (7.2-11.1) Neutrophils (%) (Auto) 69.1 % (39.4-72.5) Lymphocytes (%) (Auto) 17.0 % (17.6-49.6) Monocytes (%) (Auto) 11.2 % (4.1-12.4) Eosinophils (%) (Auto) 1.9 % (0.4-6.7) Basophils (%) (Auto) 0.8 % (0.3-1.4) Nucleated RBC Relative Count (auto) 0.0 /100WBC Neutrophils # (Auto) 5.8 K/uL (2.0-7.4) Lymphocytes # (Auto) 1.4 K/uL (1.3-3.6) Monocytes # (Auto) 0.9 K/uL (0.3-1.0) Eosinophils # (Auto) 0.2 K/uL (0.0-0.5) Basophils # (Auto) 0.1 K/uL (0.0-0.1) Nucleated RBC Absolute Count (auto) 0.00 K/uL Glomerular Filtration Rate Calc > 60.0 Calcium Level 8.1 mg/dl (8.4-10.2) Total Bilirubin 0.3 mg/dl (0.2-1.3) Aspartate Amino Transf (AST/SGOT) 14 U/L (0-35) Alanine Aminotransferase (ALT/SGPT) 27 U/L (0-56) Alkaline Phosphatase 151 U/L (0-126) Total Protein 5.8 g/dl (6.3-8.2) Albumin 3.5 g/dl (3.5-5.0) Lipase 48 U/L (23-300) Urine Color Straw Urine Clarity Clear Urine pH 6.0 pH (4.8-9.5) Urine Specific [place] 1.008 Urine Protein Negative mg/dL (NEGATIVE) Urine Glucose (UA) 500 mg/dL (NEGATIVE) Urine Ketones Negative mg/dL (NEGATIVE) Urine Blood Negative (NEGATIVE) Urine Nitrite Negative (NEGATIVE) Urine Bilirubin Negative (NEGATIVE) Urine Urobilinogen Negative mg/dL (0.2-1.9) Urine Leukocyte Esterase Negative (NEGATIVE) Urine RBC <1 /HPF (0-2/HPF) Urine WBC <1 /HPF (0-5/HPF) Urine Squamous Epithelial Cells Few /LPF (</=FEW) Urine Bacteria Negative /HPF (NONE-FEW) Urine Mucus None /HPF (NONE-FEW) Whole Blood Glucose 217 mg/DL (75-110) Urinalysis Test 01/04/19 16:18 Urine Color Straw Urine Clarity Clear Urine pH 6.0 pH (4.8-9.5) Urine Specific [place] 1.008 Urine Protein Negative mg/dL (NEGATIVE) Urine Glucose (UA) 500 mg/dL (NEGATIVE) Urine Ketones Negative mg/dL (NEGATIVE) Urine Blood Negative (NEGATIVE) Urine Nitrite Negative (NEGATIVE) Urine Bilirubin Negative (NEGATIVE) Urine Urobilinogen Negative mg/dL (0.2-1.9) Urine Leukocyte Esterase Negative (NEGATIVE) Urine RBC <1 /HPF (0-2/HPF) Urine WBC <1 /HPF (0-5/HPF) Urine Squamous Epithelial Cells Few /LPF (</=FEW) Urine Bacteria Negative /HPF (NONE-FEW) Urine Mucus None /HPF (NONE-FEW) ED Course/Re-evaluation Clinical Indication for ER IV: Hydration ED Course 01/04/2019 4:03:53 pm patient with a blood sugar of 2 80 mg/dL. We'll give liter of fluid and then recheck blood sugar. 01/04/2019 4:45:40 pm repeat blood sugar after 1 L fluid is 218 mg/dL. We'll discharge home Decision to Disposition Date: Jan 04, 2019 Decision to Disposition Time: 16:45 Depart Departure Latest Vital Signs Vital Signs Date Time Temp Pulse Resp B/P (MAP) Pulse Ox O2 Delivery O2 Flow Rate FiO2 01/04/19 16:40 185/85 (118) 01/04/19 15:08 97.7 76 20 88 Room Air Impression: Primary Impression: Hyperglycemia Condition: Improved Disposition: HOME OR SELF-CARE Patient Instructions: Diabetic Hyperglycemia (ED) Additional Instructions: Make a follow-up appointment with her primary care provider to reevaluate your current insulin schedule in dosing. FREDDY GATICA MD Jan 04, 2019 15:06
[2019-01-04] MEDS ORDERED: NS(*) 0.9% 1000 ML BAG 1,000 ML IV ONE (15:30)
[2019-01-04 15:37] LABS: PLATELET COUNT, AUTOMATED 294 K/uL (150-450)
[2019-01-04 16:40] VITALS: BP 185/85
== END 2019-01-04 16:55 | disposition home or self-care (01) ==
LOC: ER 15:08
DX: E11.65 Type 2 diabetes mellitus with hyperglycemia (principal); Z79.4 Long term (current) use of insulin
CPT/HCPCS: 36416; 81001; 82948; 83690; 85025; 96360; 99283; J7030; 82040; 82247; 82310; 82374; 82435; 82565; 82947; 84075; 84132; 84155; 84295; 84450; 84460; 84520

== ENCOUNTER 2019-01-08 06:00 | Emergency (ER) | payer MEDICARE ==
[2016-04-21 13:01] VITALS: Wt 99.9 kg
[2019-01-08] MEDS ORDERED: ONDANSETRON 4 MG/2 ML VIAL IVP ONE (06:30)
[2019-01-08] MEDS ORDERED: ASPIRIN 81 MG CHEW PO ONE (06:30)
[2019-01-08] MEDS ORDERED: ACETAMINOPHEN 325 MG TAB PO ONE ×2 (06:30→07:35)
[2019-01-08] MEDS ORDERED: NITROGLYCERIN 0.4 MG SUBL SL ONE (06:30)
--- NOTE | 2019-01-08 06:48 | ER Report ---
History and Physical Time Seen By MD: 06:15 Hx. of Stated Complaint: PT REPORTS BACK PAIN THAT STARTED AROUND 0400. PT DOES ALSO REPORT SOME CHEST TIGHTNESS. (FREDDY ROMERO MD) HPI/ROS CHIEF COMPLAINT: Chest pain, back pain HISTORY OF PRESENT ILLNESS: 73 m hx cad, stent x 1, DM, last cardiac cath 2014, presents with back pain that is sharp, between shoulder blades, radiates to left shoulder blade, and associated chest tightness that is 8/10 in severity. Pain has been constant. Pt has not tried anything for this. He states it is similar to his NC in the past. No exacerbating/releiving factors. No recent travel, change in activity. He has mild shortness of breath, no diaphoresis. Mild nausea. No vomiting. No abd pain. No LE edema or swelling. REVIEW OF SYSTEMS: Constitutional: No fever, no chills. Eyes: no blurred vision ENT: No sore throat. Cardiovascular: above Respiratory: above Gastrointestinal: No abdominal pain, no vomiting. Genitourinary: no dysuria Musculoskeletal: above Skin: No rashes. Neurological: No headache. Remainder of the 14 system rev: Yes (FREDDY ROMERO MD) Allergies: Coded Allergies: naproxen (Verified Allergy, Severe, CHEST PAIN, RASH, 01/08/19) Penicillins (Verified Allergy, Mild, ITCHING, 01/08/19) Home Meds Active Scripts Hydrocodone Bit/Acetaminophen (HYDROCODON-ACETAMINOPHEN 5-325) 1 Each Tablet, 1 EACH PO Q4H PRN for PAIN, #12 TAB 0 Refills Prov:JAMEY VILLASENOR MD 11/23/18 Insulin Detemir 100 UN/ML PEN (Levemir Flextouch) 100 Unit/1 Ml Insuln.pen, 40 UNITS SUBQ BID, #2 BOX 0 Refills Prov:WILMER NGUYEN APRN [employer] BURNER-C 07/17/18 Insulin Lispro 100 Un/Ml Pen (HUMALOG 3 ML PEN) 100 Unit/1 Ml Insuln.pen, 20 UNIT SQ TID, #2 BOX 1 Refill Prov:KIKI CORMIER MD 04/02/18 Pantoprazole Sodium (PANTOPRAZOLE SODIUM) 40 Mg Tablet.dr, 1 TAB PO QDAY, #60 TAB.SR 3 Refills Prov:HERBERT FELIZ MD 02/26/18 Reported Medications Lisinopril (LISINOPRIL) 10 Mg Tablet, 10 MG PO QDAY, TAB 09/01/18 Cholecalciferol (Vitamin D3) (VITAMIN D3) 5,000 Unit Tablet, 5000 UNIT PO DAILY 01/29/18 Ferrous Sulfate (FERROUS SULFATE) 325 Mg Tablet, 325 MG PO DAILY 01/29/18 Acetaminophen (TYLENOL EXTRA STRENGTH) 500 Mg Tablet, 1 TAB PO TID PRN for PAIN, TAB 04/10/17 [place]-3 Fatty Acids/Fish Oil (FISH OIL 1,000 MG SOFTGEL) 1 Each Capsule, 1 EACH PO BID, CAPSULE 04/10/17 [place], Insulin Disposable (Bd Ultra-Fine Pen Needle) 1 Each Dis.needle, EACH 5XD, #100 04/10/17 Albuterol Sulfate 0.083% (ALBUTEROL SULFATE 0.083%) 2.5 Mg/3 Ml Vial.neb, 2.5 MG INH Q8H PRN for WHEEZING, INH 04/10/17 Allopurinol (ZYLOPRIM) 300 Mg Tablet, 1 TAB PO QDAY, TAB 04/10/17 Albuterol Sulfate (Proventil Hfa) 6.7 Gm Aer.w.adap, 2 PUFF INH Q4H PRN for WHEEZING, 0 Refills 09/07/11 Reviewed Nurses Notes: Yes Old Medical Records Reviewed: Yes (FREDDY ROMERO MD) Hx Smoking: Yes (1PPDX 30 YEARS- QUIT 2000) Smoking Status: Former Smoker Exposure to Second Hand Smoke?: No Hx Substance Use Disorder: No Hx Alcohol Use: No (FREDDY ROMERO MD) Constitutional Vital Sign - Last 24 Hours 01/08/19 01/08/19 01/08/19 01/08/19 06:05 06:06 06:30 06:45 Temp 98.1 Pulse 82 89 79 82 Resp 16 18 18 B/P (MAP) 173/93 (119) 173/93 155/76 (102) 122/61 (81) Pulse Ox 89 89 88 O2 Delivery Room Air 01/08/19 01/08/19 01/08/19 01/08/19 06:50 07:00 07:03 07:10 Pulse 82 85 76 Resp 11 7 B/P (MAP) 123/69 (87) Pulse Ox 93 94 O2 Delivery Nasal Cannula Nasal Cannula Nasal Cannula O2 Flow Rate 2 2 2.0 2 01/08/19 01/08/19 01/08/19 01/08/19 07:15 07:20 07:30 07:40 Pulse 82 76 74 Resp 11 10 11 B/P (MAP) 147/65 (92) 119/57 (77) Pulse Ox 94 94 93 O2 Delivery Nasal Cannula Nasal Cannula Nasal Cannula Nasal Cannula O2 Flow Rate 2 2 2 2 01/08/19 01/08/19 01/08/19 01/08/19 07:45 07:50 08:00 08:10 Pulse 68 61 Resp 12 11 B/P (MAP) 125/85 (98) 129/56 (80) Pulse Ox 92 94 01/08/19 01/08/19 01/08/19 01/08/19 08:15 08:30 08:45 08:50 Pulse 65 60 Resp 25 7 B/P (MAP) 128/64 (85) 130/44 (72) 118/46 (70) Pulse Ox 95 94 01/08/19 01/08/19 01/08/19 01/08/19 08:55 09:00 09:15 09:30 Pulse 59 69 Resp 7 16 B/P (MAP) 111/80 (90) 124/66 (85) 136/65 (88) Pulse Ox 95 97 01/08/19 01/08/19 01/08/19 01/08/19 09:35 09:45 09:55 10:00 Pulse 70 68 Resp 10 12 12 B/P (MAP) 144/73 (96) 118/72 (87) Pulse Ox 95 95 100 01/08/19 01/08/19 10:15 10:30 Resp 7 10 B/P (MAP) 166/70 (102) 150/58 (88) Pulse Ox 89 95 (FREDDY BLACK MD) Physical Exam General Appearance: The patient is alert, has no immediate need for airway protection and no signs of toxicity. Eyes: Pupils equal and round no pallor or injection. ENT, Mouth: Mucous membranes are moist. Respiratory: There are no retractions, lungs are clear to auscultation. Cardiovascular: Regular rate and rhythm. no m/r/g Gastrointestinal: Abdomen is soft and non tender, no masses, bowel sounds normal. Neurological: alert, moves all ext Skin: Warm and dry, no rashes. Musculoskeletal: Extremities are nontender, nonswollen and have full range of motion. No back/chest wall ttp DIFFERENTIAL DIAGNOSIS: After history and physical exam differential diagnosis was considered for chest pain including but not limited to myocardial ischemia, pericarditis pulmonary embolus, chest wall pain, pleural inflammation and pulmonary infectious causes.shortness of breath including but not limited to pulmonary infectious process, COPD, asthma, pulmonary embolus and congestive heart failure, aortic dissection (FREDDY ROMERO MD) Medical Decision Making Data Points Result Diagram: 01/08/19 0616 01/08/19 0616 Laboratory Hematology Test 01/08/19 06:16 01/08/19 09:50 01/08/19 09:54 Red Blood Count 4.92 M/uL (4.00-5.60) Mean Corpuscular Volume 89.4 fL (80.0-96.0) Mean Corpuscular Hemoglobin 29.7 pg (26.0-33.0) Mean Corpuscular Hemoglobin Concent 33.2 g/dL (32.0-36.0) Red Cell Distribution Width 13.7 % (11.5-14.5) Mean Platelet Volume 8.5 fL (7.2-11.1) Neutrophils (%) (Auto) 75.6 % (39.4-72.5) Lymphocytes (%) (Auto) 14.3 % (17.6-49.6) Monocytes (%) (Auto) 8.7 % (4.1-12.4) Eosinophils (%) (Auto) 1.1 % (0.4-6.7) Basophils (%) (Auto) 0.3 % (0.3-1.4) Nucleated RBC Relative Count (auto) 0.0 /100WBC Neutrophils # (Auto) 7.7 K/uL (2.0-7.4) Lymphocytes # (Auto) 1.5 K/uL (1.3-3.6) Monocytes # (Auto) 0.9 K/uL (0.3-1.0) Eosinophils # (Auto) 0.1 K/uL (0.0-0.5) Basophils # (Auto) 0.0 K/uL (0.0-0.1) Nucleated RBC Absolute Count (auto) 0.00 K/uL D-Dimer Quantitative (PE/DVT) 0.37 ug/ml (0-0.50) Sodium Level 140 mmol/L (137-145) Potassium Level 3.3 mmol/L (3.5-5.0) Chloride Level 105 mmol/L (98-107) Carbon Dioxide Level 24 mmol/L (22-30) Blood Urea Nitrogen 19 mg/dl (9-21) Creatinine 0.70 mg/dl (0.66-1.25) Glomerular Filtration Rate Calc > 60.0 Random Glucose 100 mg/dl (75-110) Calcium Level 8.8 mg/dl (8.4-10.2) Total Bilirubin 0.5 mg/dl (0.2-1.3) Aspartate Amino Transf (AST/SGOT) 16 U/L (0-35) Alanine Aminotransferase (ALT/SGPT) 23 U/L (0-56) Alkaline Phosphatase 93 U/L (0-126) B-Type Natriuretic Peptide 43 pg/ml (0-100) Total Protein 6.8 g/dl (6.3-8.2) Albumin 4.1 g/dl (3.5-5.0) Lipase 47 U/L (23-300) Troponin I < 0.012 ng/ml Whole Blood Glucose 69 mg/DL (75-110) Chemistry Test 01/08/19 06:16 01/08/19 09:50 01/08/19 09:54 White Blood Count 10.2 k/uL (4.5-11.0) Red Blood Count 4.92 M/uL (4.00-5.60) Hemoglobin 14.6 g/dL (14.0-18.0) Hematocrit 44.0 % (42.0-52.0) Mean Corpuscular Volume 89.4 fL (80.0-96.0) Mean Corpuscular Hemoglobin 29.7 pg (26.0-33.0) Mean Corpuscular Hemoglobin Concent 33.2 g/dL (32.0-36.0) Red Cell Distribution Width 13.7 % (11.5-14.5) Platelet Count 332 K/uL (150-450) Mean Platelet Volume 8.5 fL (7.2-11.1) Neutrophils (%) (Auto) 75.6 % (39.4-72.5) Lymphocytes (%) (Auto) 14.3 % (17.6-49.6) Monocytes (%) (Auto) 8.7 % (4.1-12.4) Eosinophils (%) (Auto) 1.1 % (0.4-6.7) Basophils (%) (Auto) 0.3 % (0.3-1.4) Nucleated RBC Relative Count (auto) 0.0 /100WBC Neutrophils # (Auto) 7.7 K/uL (2.0-7.4) Lymphocytes # (Auto) 1.5 K/uL (1.3-3.6) Monocytes # (Auto) 0.9 K/uL (0.3-1.0) Eosinophils # (Auto) 0.1 K/uL (0.0-0.5) Basophils # (Auto) 0.0 K/uL (0.0-0.1) Nucleated RBC Absolute Count (auto) 0.00 K/uL D-Dimer Quantitative (PE/DVT) 0.37 ug/ml (0-0.50) Glomerular Filtration Rate Calc > 60.0 Calcium Level 8.8 mg/dl (8.4-10.2) Total Bilirubin 0.5 mg/dl (0.2-1.3) Aspartate Amino Transf (AST/SGOT) 16 U/L (0-35) Alanine Aminotransferase (ALT/SGPT) 23 U/L (0-56) Alkaline Phosphatase 93 U/L (0-126) B-Type Natriuretic Peptide 43 pg/ml (0-100) Total Protein 6.8 g/dl (6.3-8.2) Albumin 4.1 g/dl (3.5-5.0) Lipase 47 U/L (23-300) Troponin I < 0.012 ng/ml Whole Blood Glucose 69 mg/DL (75-110) Coagulation Test 01/08/19 06:16 D-Dimer Quantitative (PE/DVT) 0.37 ug/ml (FREDDY BLACK MD) EKG/Imaging EKG Interpretation 12 lead EKG: Rhythm: normal sinus rhythm [place]: normal QRS: normal ST segments: Borderline ST depression in lead 3, aVF borderline ST elevation in V1 and V2 [ ] Monitor Interpretation: Normal Sinus Rhythm (FREDDY ROMERO MD) [place] [facility] [place] Nomi Whiting : 1945 MR: [id number] V: [id number] EXAM DATE: [id number] ORDERING PHYSICIAN: FREDDY ROMERO TECHNOLOGIST: Location: [facility] - [place] Patient: Nomi Whiting : 1945 Visit/Account:[id number] Date of Sevice: 01/08/2019 Study: Single portable view of the chest. Indication: Back pain Comparison study: None. Technique: Single AP view of the chest demonstrates no evidence of acute in filtrate. There is no evidence of pleural effusion or pneumothorax. The mediastinal, cardiac, and diaphragmatic contours are unremarkable. There are old left-sided rib fractures noted. IMPRESSION: Unremarkable chest. Report Dictated By: Alexis Lozano at 01/08/2019 7:28 AM Report E-Signed By: Alexis Lozano at 01/08/2019 7:29 AM WSN:[id number] (FREDDY BLACK MD) ED Course/Re-evaluation ED Course Patient presents with chest pain and back pain that he states is similar to his index pain without exertion. EKG is unchanged from multiple prior. We'll initiate labs evaluation for differential as above. Patient turned over to Dr. Black after initial evaluation waiting for labs and reassessment. (FREDDY ROMERO MD) ED Course Repeat troponin negative will discharge home at this time. Decision to Disposition Date: Jan 08, 2019 Decision to Disposition Time: 10:33 Turned Over Assumed care of patient at 0700; pt with chest and back pain; hx of NC in past; states feels similar; plan will be delta troponin; ecg normal. (FREDDY BLACK MD) Depart Departure Latest Vital Signs Vital Signs Date Time Temp Pulse Resp B/P (MAP) Pulse Ox O2 Delivery O2 Flow Rate FiO2 01/08/19 10:30 10 150/58 (88) 95 01/08/19 09:55 68 01/08/19 07:40 Nasal Cannula 2 01/08/19 06:06 98.1 (FREDDY BLACK MD) Impression: Primary Impression: Chest wall pain Additional Impression: Back pain Condition: Improved Disposition: HOME OR SELF-CARE Patient Instructions: Back Pain (ED), Chest Wall Pain (ED) Additional Instructions: Make a follow-up appointment with her primary care provider for routine health maintenance. Problem Qualifiers Additional Impression: Back pain Back pain location: thoracic back pain Chronicity: acute Back pain laterality: midline Qualified Codes: M54.6 - Pain in thoracic spine FREDDY ROMERO MD Jan 08, 2019 06:48 FREDDY BLACK MD Jan 08, 2019 07:09
[2019-01-08 06:59] LABS: PLATELET COUNT, AUTOMATED 332 K/uL (150-450)
[2019-01-08] MEDS ORDERED: POTASSIUM CHL 20 MEQ TABCR PO SCH (07:10)
--- NOTE | 2019-01-08 07:20 | EKG ---
[place] [facility] [place] NAME: BRETT BRADLEY : [id number] MR: [id number] V: [id number] EXAM DATE: ORDERING PHYSICIAN: FREDDY ROMERO TECHNOLOGIST: [facility] [place] Reason : CP Blood Pressure : / mmHG Vent. Rate : 079 BPM Atrial Rate : 079 BPM P-R Int : 178 ms QRS Dur : 094 ms QT Int : 414 ms P-R-T Axes : 060 073 032 degrees QTc Int : 474 ms Normal sinus rhythm Normal ECG When compared with ECG of 13-OCT-2018 17:52, No significant change was found Confirmed by ASHANTI VANESSA ([id number]) on 01/08/2019 7:57:08 AM Referred By: NICK Confirmed By:ASHANTI VANESSA
--- NOTE | 2019-01-08 07:33 | RADIOLOGY IMAGING REPORT ---
[place] [facility] [place] NAME: Nomi Whiting : 1945 MR: [id number] V: [id number] EXAM DATE: ORDERING PHYSICIAN: FREDDY ROMERO TECHNOLOGIST: Location: [facility] - [place] Patient: Nomi Whiting : 1945 Visit/Account:[id number] Date of Sevice: 01/08/2019 Study: Single portable view of the chest. Indication: Back pain Comparison study: None. Technique: Single AP view of the chest demonstrates no evidence of acute infiltrate. There is no evid ence of pleural effusion or pneumothorax. The mediastinal, cardiac, and diaphragmatic contours are un remarkable. There are old left-sided rib fractures noted. IMPRESSION: Unremarkable chest. Report Dictated By: Alexis Lozano at 01/08/2019 7:28 AM Report E-Signed By: Alexis Lozano at 01/08/2019 7:29 AM WSN:[id number]
[2019-01-08] MEDS ORDERED: KETOROLAC 15 MG/ML VIAL IVP ONE (07:40)
[2019-01-08] MEDS ORDERED: ORPHENADRINE 60MG/2ML INJ IVP ONE (10:05)
[2019-01-08 10:30] VITALS: BP 150/58
== END 2019-01-08 10:53 | disposition home or self-care (01) ==
LOC: ER 06:32
DX: R07.9 Chest pain, unspecified (principal); M54.6 Pain in thoracic spine
CPT/HCPCS: 36416; 71045; 82948; 83690; 83880; 84484; 85025; 85379; 93005; 96374; 96375; 99284; A9270; J1885; J2405; 82040; 82247; 82310; 82374; 82435; 82565; 82947; 84075; 84132; 84155; 84295; 84450; 84460; 84520; 96361

== ENCOUNTER 2019-01-14 17:50 | Emergency (ER) | payer MEDICARE ==
[2016-04-21 13:01] VITALS: Wt 99.9 kg
[~2019-01-14 17:50] MED LIST changes: -MELO-205 PO; -ONDA4TAB9 PO; -TIZA-128 PO
--- NOTE | 2019-01-14 18:09 | ER Report ---
History and Physical Time Seen By MD: 18:09 Hx. of Stated Complaint: STOMACHE PAIN, HEADACHE, BG 376, LAST INSULIN TAKEN AROUND 2PM. PAIN 8/10 HPI/ROS CHIEF COMPLAINT: stomach pain, headache HISTORY OF PRESENT ILLNESS: This is a 73 year old male. He is having some stomach pain for the last couple of hours. Sudden onset. Similar to prior stomach problems. Mild nausea, but no vomiting. Has mild chest pain and shortness of breath with this. Has a bad headache as well. No fevers or chills noted. He has no sore throat, runny nose, or significant cough, does have a chronic cough. No trouble urinating. No diarrhea or bowel changes. He has been eating and drinking normally today. Blood sugars running a little high, but this is also common for him. Last insulin at 2pm, blood sugar now was over 300. REVIEW OF SYSTEMS: As above. Allergies: Coded Allergies: naproxen (Verified Allergy, Severe, CHEST PAIN, RASH, 01/14/19) Penicillins (Verified Allergy, Mild, ITCHING, 01/14/19) Home Meds Active Scripts Ondansetron 4 Mg Odt (ONDANSETRON 4 MG ODT) 4 Mg Tab.rapdis, 4 MG PO Q6H PRN for NAUSEA/VOMITING, #20 TAB 0 Refills Prov:JAMEY VILLASENOR MD 01/14/19 Hydrocodone Bit/Acetaminophen (HYDROCODON-ACETAMINOPHEN 5-325) 1 Each Tablet, 1 EACH PO Q4H PRN for PAIN, #12 TAB 0 Refills Prov:JAMEY VILLASENOR MD 11/23/18 Insulin Detemir 100 UN/ML PEN (Levemir Flextouch) 100 Unit/1 Ml Insuln.pen, 40 UNITS SUBQ BID, #2 BOX 0 Refills Prov:WILMER NGUYEN APRN CYLINDER INSPECTOR-C 07/17/18 Insulin Lispro 100 Un/Ml Pen (HUMALOG 3 ML PEN) 100 Unit/1 Ml Insuln.pen, 20 UNIT SQ TID, #2 BOX 1 Refill Prov:KIKI CORMIER MD 04/02/18 Pantoprazole Sodium (PANTOPRAZOLE SODIUM) 40 Mg Tablet.dr, 1 TAB PO QDAY, #60 TAB.SR 3 Refills Prov:HERBERT FELIZ MD 02/26/18 Reported Medications Lisinopril (LISINOPRIL) 10 Mg Tablet, 10 MG PO QDAY, TAB 09/01/18 Cholecalciferol (Vitamin D3) (VITAMIN D3) 5,000 Unit Tablet, 5000 UNIT PO DAILY 01/29/18 Ferrous Sulfate (FERROUS SULFATE) 325 Mg Tablet, 325 MG PO DAILY 01/29/18 Acetaminophen (TYLENOL EXTRA STRENGTH) 500 Mg Tablet, 1 TAB PO TID PRN for PAIN, TAB 04/10/17 [place]-3 Fatty Acids/Fish Oil (FISH OIL 1,000 MG SOFTGEL) 1 Each Capsule, 1 EACH PO BID, CAPSULE 04/10/17 [place], Insulin Disposable (Bd Ultra-Fine Pen Needle) 1 Each Dis.needle, EACH 5XD, #100 04/10/17 Albuterol Sulfate 0.083% (ALBUTEROL SULFATE 0.083%) 2.5 Mg/3 Ml Vial.neb, 2.5 MG INH Q8H PRN for WHEEZING, INH 04/10/17 Allopurinol (ZYLOPRIM) 300 Mg Tablet, 1 TAB PO QDAY, TAB 04/10/17 Albuterol Sulfate (Proventil Hfa) 6.7 Gm Aer.w.adap, 2 PUFF INH Q4H PRN for WHEEZING, 0 Refills 09/07/11 Reviewed Nurses Notes: Yes Hx Smoking: Yes (1PPDX 30 YEARS- QUIT 2000) Smoking Status: Former Smoker Exposure to Second Hand Smoke?: No Hx Substance Use Disorder: No Hx Alcohol Use: No Constitutional Vital Sign - Last 24 Hours 01/14/19 01/14/19 01/14/19 01/14/19 18:02 18:02 18:04 18:05 Temp 97.0 Pulse 99 98 Resp 16 B/P (MAP) 197/142 (160) 197/142 194/87 (122) Pulse Ox 88 93 O2 Delivery Room Air 01/14/19 01/14/19 01/14/19 01/14/19 18:15 18:20 18:31 18:35 Pulse 87 85 B/P (MAP) 179/114 (135) 186/86 (119) Pulse Ox 94 93 01/14/19 01/14/19 01/14/19 01/14/19 18:47 18:50 19:25 19:30 Pulse 79 75 B/P (MAP) 175/76 (109) Pulse Ox 93 95 O2 Flow Rate 2.0 01/14/19 01/14/19 01/14/19 01/14/19 19:40 19:55 20:00 20:10 Pulse 73 71 73 B/P (MAP) 160/74 (102) Pulse Ox 95 94 92 01/14/19 01/14/19 01/14/19 01/14/19 20:15 20:30 20:45 21:00 Pulse 74 71 70 68 B/P (MAP) 181/83 (115) 161/63 (95) Pulse Ox 92 94 96 97 01/14/19 21:15 Pulse 58 Pulse Ox 96 Physical Exam General Appearance: The patient is alert. No acute distress. Eyes: Pupils are equal, round. Reactive to light. No pallor, injection or icterus. Extraocular movements are intact. ENT: Mucous membranes are moist. Normal oral mucosa. Posterior oropharynx is nor mal. Neck: Supple and non tender. Respiratory: Lungs are clear to auscultation. Cardiovascular: Regular rate and rhythm. No murmurs, gallops or rubs. Normal capillary refill. Trace edema in bilateral lower extremities. Gastrointestinal: Abdomen is tender in epigastric and left upper quadrant area. Hyperactive bowels. Nondistended. Guarding but no rebound. Normal active bowel sounds. No costovertebral angle tenderness with percussion. Neurological: Alert and oriented x3. No focal neurologic deficits Skin: Warm and dry. Musculoskeletal: Extremities are nontender. No tenderness in palpation of the back and spine. DIFFERENTIAL DIAGNOSIS: After history and physical exam, differential diagnosis was considered for epigastric pain including but not limited to viral syndrome, cardiac causes, diabetes related, peptic ulcer disease, pancreatitis, and gastroenteritis. Medical Decision Making Data Points Result Diagram: 01/14/19 1832 01/14/19 1832 Laboratory Hematology Test 01/14/19 18:32 01/14/19 19:20 Red Blood Count 4.81 M/uL (4.00-5.60) Mean Corpuscular Volume 89.1 fL (80.0-96.0) Mean Corpuscular Hemoglobin 30.0 pg (26.0-33.0) Mean Corpuscular Hemoglobin Concent 33.6 g/dL (32.0-36.0) Red Cell Distribution Width 14.4 % (11.5-14.5) Mean Platelet Volume 8.0 fL (7.2-11.1) Neutrophils (%) (Auto) 76.9 % (39.4-72.5) Lymphocytes (%) (Auto) 11.4 % (17.6-49.6) Monocytes (%) (Auto) 6.8 % (4.1-12.4) Eosinophils (%) (Auto) 2.4 % (0.4-6.7) Basophils (%) (Auto) 2.5 % (0.3-1.4) Nucleated RBC Relative Count (auto) 0.0 /100WBC Neutrophils # (Auto) 7.4 K/uL (2.0-7.4) Lymphocytes # (Auto) 1.1 K/uL (1.3-3.6) Monocytes # (Auto) 0.7 K/uL (0.3-1.0) Eosinophils # (Auto) 0.2 K/uL (0.0-0.5) Basophils # (Auto) 0.2 K/uL (0.0-0.1) Nucleated RBC Absolute Count (auto) 0.00 K/uL Sodium Level 140 mmol/L (137-145) Potassium Level 3.8 mmol/L (3.5-5.0) Chloride Level 107 mmol/L (98-107) Carbon Dioxide Level 21 mmol/L (22-30) Blood Urea Nitrogen 15 mg/dl (9-21) Creatinine 0.80 mg/dl (0.66-1.25) Glomerular Filtration Rate Calc > 60.0 Random Glucose 331 mg/dl (75-110) Calcium Level 8.4 mg/dl (8.4-10.2) Total Bilirubin 0.2 mg/dl (0.2-1.3) Aspartate Amino Transf (AST/SGOT) 14 U/L (0-35) Alanine Aminotransferase (ALT/SGPT) 22 U/L (0-56) Alkaline Phosphatase 120 U/L (0-126) Troponin I < 0.012 ng/ml Total Protein 6.3 g/dl (6.3-8.2) Albumin 3.9 g/dl (3.5-5.0) Amylase Level 104 U/L (0-110) Lipase 42 U/L (23-300) Acetone, Qualitative Negative Urine Color Yellow Urine Clarity Clear Urine pH 5.0 pH (4.8-9.5) Urine Specific [place] 1.032 Urine Protein Negative mg/dL (NEGATIVE) Urine Glucose (UA) 500 mg/dL (NEGATIVE) Urine Ketones Negative mg/dL (NEGATIVE) Urine Blood Negative (NEGATIVE) Urine Nitrite Negative (NEGATIVE) Urine Bilirubin Negative (NEGATIVE) Urine Urobilinogen 2.0 mg/dL (0.2-1.9) Urine Leukocyte Esterase Negative (NEGATIVE) Urine RBC 1 /HPF (0-2/HPF) Urine WBC 1 /HPF (0-5/HPF) Urine Squamous Epithelial Cells Few /LPF (</=FEW) Urine Bacteria Negative /HPF (NONE-FEW) Urine Mucus None /HPF (NONE-FEW) Chemistry Test 01/14/19 18:32 01/14/19 19:20 White Blood Count 9.6 k/uL (4.5-11.0) Red Blood Count 4.81 M/uL (4.00-5.60) Hemoglobin 14.4 g/dL (14.0-18.0) Hematocrit 42.8 % (42.0-52.0) Mean Corpuscular Volume 89.1 fL (80.0-96.0) Mean Corpuscular Hemoglobin 30.0 pg (26.0-33.0) Mean Corpuscular Hemoglobin Concent 33.6 g/dL (32.0-36.0) Red Cell Distribution Width 14.4 % (11.5-14.5) Platelet Count 283 K/uL (150-450) Mean Platelet Volume 8.0 fL (7.2-11.1) Neutrophils (%) (Auto) 76.9 % (39.4-72.5) Lymphocytes (%) (Auto) 11.4 % (17.6-49.6) Monocytes (%) (Auto) 6.8 % (4.1-12.4) Eosinophils (%) (Auto) 2.4 % (0.4-6.7) Basophils (%) (Auto) 2.5 % (0.3-1.4) Nucleated RBC Relative Count (auto) 0.0 /100WBC Neutrophils # (Auto) 7.4 K/uL (2.0-7.4) Lymphocytes # (Auto) 1.1 K/uL (1.3-3.6) Monocytes # (Auto) 0.7 K/uL (0.3-1.0) Eosinophils # (Auto) 0.2 K/uL (0.0-0.5) Basophils # (Auto) 0.2 K/uL (0.0-0.1) Nucleated RBC Absolute Count (auto) 0.00 K/uL Glomerular Filtration Rate Calc > 60.0 Calcium Level 8.4 mg/dl (8.4-10.2) Total Bilirubin 0.2 mg/dl (0.2-1.3) Aspartate Amino Transf (AST/SGOT) 14 U/L (0-35) Alanine Aminotransferase (ALT/SGPT) 22 U/L (0-56) Alkaline Phosphatase 120 U/L (0-126) Troponin I < 0.012 ng/ml Total Protein 6.3 g/dl (6.3-8.2) Albumin 3.9 g/dl (3.5-5.0) Amylase Level 104 U/L (0-110) Lipase 42 U/L (23-300) Acetone, Qualitative Negative Urine Color Yellow Urine Clarity Clear Urine pH 5.0 pH (4.8-9.5) Urine Specific [place] 1.032 Urine Protein Negative mg/dL (NEGATIVE) Urine Glucose (UA) 500 mg/dL (NEGATIVE) Urine Ketones Negative mg/dL (NEGATIVE) Urine Blood Negative (NEGATIVE) Urine Nitrite Negative (NEGATIVE) Urine Bilirubin Negative (NEGATIVE) Urine Urobilinogen 2.0 mg/dL (0.2-1.9) Urine Leukocyte Esterase Negative (NEGATIVE) Urine RBC 1 /HPF (0-2/HPF) Urine WBC 1 /HPF (0-5/HPF) Urine Squamous Epithelial Cells Few /LPF (</=FEW) Urine Bacteria Negative /HPF (NONE-FEW) Urine Mucus None /HPF (NONE-FEW) Toxicology Test 01/14/19 18:32 Acetone, Qualitative Negative Urinalysis Test 01/14/19 19:20 Urine Color Yellow Urine Clarity Clear Urine pH 5.0 pH (4.8-9.5) Urine Specific [place] 1.032 Urine Protein Negative mg/dL (NEGATIVE) Urine Glucose (UA) 500 mg/dL (NEGATIVE) Urine Ketones Negative mg/dL (NEGATIVE) Urine Blood Negative (NEGATIVE) Urine Nitrite Negative (NEGATIVE) Urine Bilirubin Negative (NEGATIVE) Urine Urobilinogen 2.0 mg/dL (0.2-1.9) Urine Leukocyte Esterase Negative (NEGATIVE) Urine RBC 1 /HPF (0-2/HPF) Urine WBC 1 /HPF (0-5/HPF) Urine Squamous Epithelial Cells Few /LPF (</=FEW) Urine Bacteria Negative /HPF (NONE-FEW) Urine Mucus None /HPF (NONE-FEW) EKG/Imaging EKG Interpretation 12 lead EKG: Rhythm: normal sinus rhythm, rate 87 [place]: normal QRS: normal ST segments: normal Imaging ACUTE ABDOMEN SERIES 3 VIEW INDICATION: Abdomen pain COMPARISON: CT January 10, 2018 FINDINGS: Upright chest, upright abdomen and 2 supine abdomen radiographs obtained. The cardiac silhouette is normal in size. No pneumothorax. The lungs are clear. A few chronic left rib fracture deformities are noted. No intra-abdominal free air. Cholecystectomy clips noted. Left upper abdomen clips noted. No abnormal calcifications or dilated small bowel loops. Mild colonic gaseous distention. Slight convexity left lumbar scoliosis. Moderate volume colonic stool. Right iliac stent noted. IMPRESSION: 1. No definitive acute finding. 2. Mild colonic gaseous distention. 3. Moderate volume colonic stool. Report Dictated By: Elton Wheeler MD at 01/14/2019 7:48 PM ED Course/Re-evaluation Clinical Indication for ER IV: Hydration, IV Access ED Course Patient fell a little bit better after the initial medications. Lab workup EKG and imaging negative. Given Toradol and Tylenol and he felt much better. Seen instructions below Decision to Disposition Date: Jan 14, 2019 Decision to Disposition Time: 20:54 Depart Departure Latest Vital Signs Vital Signs Date Time Temp Pulse Resp B/P (MAP) Pulse Ox O2 Delivery O2 Flow Rate FiO2 01/14/19 21:15 58 96 01/14/19 21:00 161/63 (95) 01/14/19 18:47 2.0 01/14/19 18:02 97.0 16 Room Air Impression: Primary Impression: Gastritis Condition: Improved Disposition: HOME OR SELF-CARE New Scripts Ondansetron 4 Mg Odt (ONDANSETRON 4 MG ODT) 4 Mg Tab.rapdis 4 MG PO Q6H PRN for NAUSEA/VOMITING, #20 TAB 0 Refills Prov: JAMEY VILLASENOR MD 01/14/19 Patient Instructions: Gastritis (ED) Additional Instructions: Your upset stomach could be from inflammation in the stomach, called gastritis, or could be from another cause such as a viral infection. We did not find anything dangerous on the evaluation tonight. We recommend liquids for your diet initially, and then advance to a bland diet. Take Tylenol 500mg, 2 tablets every 6 hours as needed for pain or headache. If you need something stronger, you can take Lortab 5/325, one every 4 hours as needed for severe pain. Do not take Tylenol if taking this medicine. We would recommend avoiding Ibuprofen until you stomach is feeling better. Start an anti-acid medicine called Ranitidine 150mg twice a day. This is available over the counter. Zofran 4mg, one every 6 hours as needed for nausea. Problem Qualifiers Primary Impression: Gastritis Gastritis type: unspecified gastritis Chronicity: acute Gastritis bleeding: without bleeding Qualified Codes: K29.00 - Acute gastritis without bleeding JAMEY VILLASENOR MD Jan 14, 2019 18:09
[2019-01-14] MEDS ORDERED: NS(*) 0.9% 1000 ML BAG 1,000 ML IV ONE (18:16)
[2019-01-14] MEDS ORDERED: PANTOPRAZOLE SOD 40 MG IV VIAL IVP ONE (18:20)
[2019-01-14] MEDS ORDERED: MORPHINE 2 MG/ML SYR IVP ONE (18:20)
[2019-01-14] MEDS ORDERED: ONDANSETRON 4 MG/2 ML VIAL IVP ONE (18:20)
--- NOTE | 2019-01-14 18:25 | EKG ---
FACILITY: [facility] PATIENT NAME: BRETT BRADLEY : [id number] MR: [id number] V: [id number] EXAM DATE: ORDERING PHYSICIAN: JAMEY VILLASENOR TECHNOLOGIST: SINAI [place] Reason : CP Blood Pressure : / mmHG Vent. Rate : 087 BPM Atrial Rate : 087 BPM P-R Int : 172 ms QRS Dur : 094 ms QT Int : 396 ms P-R-T Axes : 048 071 031 degrees QTc Int : 476 ms Sinus rhythm Possible left atrial enlargement When compared with ECG of 08-JAN-2019 06:32, No significant change was found Confirmed by YISSEL LINDSEY ([id number]) on 01/15/2019 5:26:37 AM Referred By: Confirmed By:YISSEL LINDSEY
[2019-01-14 18:41] LABS: PLATELET COUNT, AUTOMATED 283 K/uL (150-450)
--- NOTE | 2019-01-14 19:54 | RADIOLOGY IMAGING REPORT ---
FACILITY: [facility] PATIENT NAME: Nomi Whiting : 1945 MR: [id number] V: [id number] EXAM DATE: ORDERING PHYSICIAN: JAMEY VILLASENOR TECHNOLOGIST: Location: [facility] [place] Patient: Nomi Whiting : 1945 Visit/Account:[id number] Date of Sevice: 01/14/2019 ACUTE ABDOMEN SERIES 3 VIEW INDICATION: Abdomen pain COMPARISON: CT January 10, 2018 FINDINGS: Upright chest, upright abdomen and 2 supine abdomen radiographs obtained. The cardiac varsha houette is normal in size. No pneumothorax. The lungs are clear. A few chronic left rib fracture defo rmities are noted. No intra-abdominal free air. Cholecystectomy clips noted. Left upper abdomen clips noted. No abnormal calcifications or dilated small bowel loops. Mild colonic gaseous distention. Slight convexity left lumbar scoliosis. Moderate volume colonic stool. Right iliac stent noted. IMPRESSION: 1. No definitive acute finding. 2. Mild colonic gaseous distention. 3. Moderate volume colonic stool. Report Dictated By: Elton Wheeler MD at 01/14/2019 7:48 PM Report E-Signed By: Elton Wheeler MD at 01/14/2019 7:50 PM WSN:[id number]
[2019-01-14] MEDS ORDERED: KETOROLAC 30 MG/ML VIAL IVP ONE (20:35)
[2019-01-14] MEDS ORDERED: ACETAMINOPHEN 500 MG TAB PO ONE (20:35)
[2019-01-14] MEDS ORDERED: ONDA4TAB9 PO (20:57)
[2019-01-14 21:00] VITALS: BP 161/63
[2019-01-14] MEDS ORDERED: ONDANSETRON 4 MG ODT TH SL ONE (21:00)
[2019-01-14] MEDS ORDERED: ACET/HYDROC 5/325MG TH ER ONLY 2 TAB/BOTTLE PO ONE (21:25)
[2019-01-15] MEDS ORDERED: TIZA-128 PO (06:37)
[2019-01-15] MEDS ORDERED: MELO-205 PO (06:37)
== END 2019-01-14 21:38 | disposition home or self-care (01) ==
LOC: ER 18:15
DX: K29.00 Acute gastritis without bleeding (principal)
CPT/HCPCS: 74022; 81001; 82009; 82150; 83690; 84484; 85025; 93005; 96361; 96374; 96375; 99284; A9270; C9113; J1885; J2270; J2405; J7030; Q0162; 82040; 82247; 82310; 82374; 82435; 82565; 82947; 84075; 84132; 84155; 84295; 84450; 84460; 84520; S0119

== ENCOUNTER → 2019-01-14 | Outpatient (CLI) | payer MEDICARE ==
[2016-04-21 13:01] VITALS: BMI 33.5
[~2019-01-14] MED LIST changes: +MELO-205 PO; +ONDA4TAB9 PO; +TIZA-128 PO
== END ==
LOC: AMB 17:41
PROVIDERS: ATTEND Nurse Practitioner
DX: R10.9 Unspecified abdominal pain (principal); R51 Headache
CPT/HCPCS: A0425; A0429

== ENCOUNTER 2019-01-15 05:03 | Emergency (ER) | payer MEDICARE ==
[2016-04-21 13:01] VITALS: Wt 99.8 kg
[~2019-01-15 05:03] MED LIST changes: +ONDA4TAB9 PO
--- NOTE | 2019-01-15 05:20 | ER Report ---
History and Physical Time Seen By MD: 05:19 Hx. of Stated Complaint: PATIENT STATES HE WAS SEEN YESTERDAY FOR THE SAME THING, TOOK THE LORTAB HE WAS SENT HOME WITH AND THEN THE HEADACHE CAME BACK TONIGHT. HPI/ROS CHIEF COMPLAINT: Headache HISTORY OF PRESENT ILLNESS: This is a 73 year old male. Seen earlier in my shift for main complaint of stomach/epigastric and chest pain. Had a headache at that time as well. Stomach/epigastric pian is better. Still with some chest tightness, but minimal and no change with exertion. .He took the hydrocodone I gave for the stomach pain, and said the headache he had was gone, but then awoke and had worsened headache. Denies any trauma. Normal vision. No weakness or numbness. On further headache questions, he has had headaches every day for the past few months. He takes Ibuprofen or Tylenol for these and the headaches go away for a few hours but then come back. Allergies: Coded Allergies: naproxen (Verified Allergy, Severe, CHEST PAIN, RASH, 01/15/19) Penicillins (Verified Allergy, Mild, ITCHING, 01/15/19) Home Meds Active Scripts Tizanidine Hcl (TIZANIDINE HCL) 4 Mg Tablet, 2 MG PO BID PRN for HEADACHE, #30 TAB 0 Refills Prov:JAMEY VILLASENOR MD 01/15/19 Meloxicam (MELOXICAM) 7.5 Mg Tablet, 7.5 MG PO BID, #60 TAB 0 Refills Prov:JAMEY VILLASENOR MD 01/15/19 Ondansetron 4 Mg Odt (ONDANSETRON 4 MG ODT) 4 Mg Tab.rapdis, 4 MG PO Q6H PRN for NAUSEA/VOMITING, #20 TAB 0 Refills Prov:JAMEY VILLASENOR MD 01/14/19 Hydrocodone Bit/Acetaminophen (HYDROCODON-ACETAMINOPHEN 5-325) 1 Each Tablet, 1 EACH PO Q4H PRN for PAIN, #12 TAB 0 Refills Prov:JAMEY VILLASENOR MD 11/23/18 Insulin Detemir 100 UN/ML PEN (Levemir Flextouch) 100 Unit/1 Ml Insuln.pen, 40 UNITS SUBQ BID, #2 BOX 0 Refills Prov:WILEMR NGUYEN APRN RETAIL ACCOUNT EXECUTIVE-C 07/17/18 Insulin Lispro 100 Un/Ml Pen (HUMALOG 3 ML PEN) 100 Unit/1 Ml Insuln.pen, 20 UNIT SQ TID, #2 BOX 1 Refill Prov:KIKI CORMIER MD 04/02/18 Pantoprazole Sodium (PANTOPRAZOLE SODIUM) 40 Mg Tablet.dr, 1 TAB PO QDAY, #60 TAB.SR 3 Refills Prov:HERBERT FELIZ MD 02/26/18 Reported Medications Lisinopril (LISINOPRIL) 10 Mg Tablet, 10 MG PO QDAY, TAB 09/01/18 Cholecalciferol (Vitamin D3) (VITAMIN D3) 5,000 Unit Tablet, 5000 UNIT PO DAILY 01/29/18 Ferrous Sulfate (FERROUS SULFATE) 325 Mg Tablet, 325 MG PO DAILY 01/29/18 Acetaminophen (TYLENOL EXTRA STRENGTH) 500 Mg Tablet, 1 TAB PO TID PRN for PAIN, TAB 04/10/17 [place]-3 Fatty Acids/Fish Oil (FISH OIL 1,000 MG SOFTGEL) 1 Each Capsule, 1 EACH PO BID, CAPSULE 04/10/17 [place], Insulin Disposable (Bd Ultra-Fine Pen Needle) 1 Each Dis.needle, EACH 5XD, #100 04/10/17 Albuterol Sulfate 0.083% (ALBUTEROL SULFATE 0.083%) 2.5 Mg/3 Ml Vial.neb, 2.5 MG INH Q8H PRN for WHEEZING, INH 04/10/17 Allopurinol (ZYLOPRIM) 300 Mg Tablet, 1 TAB PO QDAY, TAB 04/10/17 Albuterol Sulfate (Proventil Hfa) 6.7 Gm Aer.w.adap, 2 PUFF INH Q4H PRN for WHEEZING, 0 Refills 09/07/11 Reviewed Nurses Notes: Yes Hx Smoking: Yes (1PPDX 30 YEARS- QUIT 2000) Smoking Status: Former Smoker Exposure to Second Hand Smoke?: No Hx Substance Use Disorder: No Hx Alcohol Use: No Constitutional Vital Sign - Last 24 Hours 01/15/19 01/15/19 01/15/19 01/15/19 05:07 05:18 05:30 05:33 Temp 97.7 Pulse 89 79 74 Resp 24 15 16 B/P (MAP) 186/79 195/83 (120) Pulse Ox 90 88 82 O2 Delivery Room Air Room Air Room Air 3/01/15/19 01/15/19 01/15/19 05:42 05:48 05:53 06:00 Pulse 71 73 Resp 15 19 B/P (MAP) 167/83 (111) Pulse Ox 93 95 O2 Delivery Nasal Cannula Nasal Cannula O2 Flow Rate 3.0 3 3 01/15/19 06:08 Pulse 69 Resp 18 Pulse Ox 95 O2 Delivery Nasal Cannula O2 Flow Rate 3 Physical Exam General Appearance: Alert, headache but no acute distress. Eyes: Pupils equal and round no injection. Extraocular movements are intact. Reactive to light. ENT: Normal oral mucosa. Moist mucous membranes. Neck: Neck is supple Respiratory: Lungs are clear to auscultation. Cardiac: regular rate and rhythm Neuro: Alert and oriented x3. Cranial nerves are normal. Has normal strength and sensation. Musculoskeletal: Extremities have full range of motion. Skin: No rashes DIFFERENTIAL DIAGNOSIS: After history and physical exam differential diagnosis was considered for headache that sounds like medication overuse headache. Medical Decision Making Data Points Laboratory Hematology Test 01/15/19 05:24 Erythrocyte Sedimentation Rate 4 mm/HOUR (0-20) Troponin I < 0.012 ng/ml C-Reactive Protein 0.6 mg/dl (<1.0) Chemistry Test 01/15/19 05:24 Erythrocyte Sedimentation Rate 4 mm/HOUR (0-20) Troponin I < 0.012 ng/ml C-Reactive Protein 0.6 mg/dl (<1.0) EKG/Imaging EKG Interpretation 12 lead EKG: Rhythm: Normal sinus rhythm, rate 71 [place]: normal QRS: normal ST segments: Nonspecific Unchanged from previous ED Course/Re-evaluation Clinical Indication for ER IV: IV Access ED Course I reviewed his prior notes and he has had complaint of headaches multiple times over the last several months here in the ER. He meets criteria for medication overuse headache. No trauma or other cause of headache suspected at this time. He has had several CT scans of the head in the last few months which have been negative. ESR and CRP negative. Mild chest tightness and EKG and Troponin negative again. Discussed medication overuse headache. Would want to start longer acting medications to decrease headache while he stops the short acting medications. We tried him on a dose of Meloxicam 7.5mg here in the ER to make sure he would tolerate this well due to his allergy to Naproxen. He tolerated Toradol and Ibuprofen alright. No problems with the Meloxicam and headache is not gone, but decreased. Also tried a 2mg dose of Tizanidine, which I would like him to use once at bedtime, but can be used twice a day if needed for headache. We considered Prednisone as well, but decided not to given his stomach problems. Meloxicam with food. Continue using his Protonix and adding Ranitidine 150mg. Follow-up with PCP for further headache treatment. Decision to Disposition Date: Jan 15, 2019 Decision to Disposition Time: 06:31 Depart Departure Latest Vital Signs Vital Signs Date Time Temp Pulse Resp B/P (MAP) Pulse Ox O2 Delivery O2 Flow Rate FiO2 01/15/19 06:08 69 18 95 Nasal Cannula 3 01/15/19 06:00 167/83 (111) 01/15/19 05:07 97.7 Impression: Primary Impression: Medication overuse headache Condition: Improved Disposition: HOME OR SELF-CARE New Scripts Tizanidine Hcl (TIZANIDINE HCL) 4 Mg Tablet 2 MG PO BID PRN for HEADACHE, #30 TAB 0 Refills Prov: JAMEY VILLASENOR MD 01/15/19 Meloxicam (MELOXICAM) 7.5 Mg Tablet 7.5 MG PO BID, #60 TAB 0 Refills Prov: JAMEY VILLASENOR MD 01/15/19 Additional Instructions: Your headaches appear to be what we call a Medication Overuse Headache, or Rebound Headache. These occur when you use short acting medicines for headache, which help temporarily, but then the headache returns when the medicine wears off, sometimes becoming more severe. We want to substitute longer acting medicines to help breath the cycle. Avoid using any Tylenol (acetaminophen) or Ibuprofen. We are going to have you start a medicine called Meloxicam 7.5mg twice a day. T hakeem this with food. You will also take Tizanidine 2mg at bedtime and can use one other 2mg dose in the morning if needed. Keep taking your Protonix and your Ranitidine for stomach acid. Follow-up with Kirsten next week for further evaluation of your headaches. JAMEY VILLASENOR MD Jan 15, 2019 05:20
[2019-01-15] MEDS ORDERED: MELOXICAM 7.5 MG TAB PO ONE (05:40)
[2019-01-15 06:30] VITALS: BP 161/80
[2019-01-15] MEDS ORDERED: MELO-205 PO (06:37)
[2019-01-15] MEDS ORDERED: TIZA-128 PO (06:37)
--- NOTE | 2019-01-15 06:59 | EKG ---
FACILITY: [facility] - [place] PATIENT NAME: BRETT BRADLEY : [id number] MR: [id number] V: [id number] EXAM DATE: ORDERING PHYSICIAN: JAMEY VILLASENOR TECHNOLOGIST: SHILPA [place] Reason : TIGHTNESS Blood Pressure : / mmHG Vent. Rate : 071 BPM Atrial Rate : 071 BPM P-R Int : 198 ms QRS Dur : 096 ms QT Int : 412 ms P-R-T Axes : 067 079 006 degrees QTc Int : 447 ms Normal sinus rhythm ST abnormality, possible digitalis effect Abnormal ECG When compared with ECG of 14-JAN-2019 18:21, Previous ECG has undetermined rhythm, needs review Confirmed by HERBERT VALE ([id number]) on 01/15/2019 10:16:19 AM Referred By: Confirmed By:HERBERT VALE
== END 2019-01-15 06:47 | disposition home or self-care (01) ==
LOC: ER 06:24
DX: G44.40 Drug-induced headache, not elsewhere classified, not intractable (principal)
CPT/HCPCS: 84484; 85651; 86140; 93005; 99283; A9270

== ENCOUNTER 2019-01-22 00:20 | Emergency (ER) | payer MEDICARE ==
[2016-04-21 13:01] VITALS: Wt 99.9 kg
[~2019-01-22 00:20] MED LIST changes: +MELO-205 PO; +TIZA-128 PO
[2019-01-22 00:27] VITALS: BP 179/90
--- NOTE | 2019-01-22 00:27 | ER Report ---
History and Physical Time Seen By MD: 00:25 HPI/ROS CHIEF COMPLAINT: Shoulder pain HISTORY OF PRESENT ILLNESS: 73 m presents with ongoing right shoulder pain, nausea, headache. Pt states he's had symptoms for 'a long time'. He states that all symptoms have been the same as they normally are (of note, though he told triage nurse nausea developed this am, he tells me this has been ongoing. He denies vomiting. He denies new/different chest pain (states he always has pain in chest). Pt denies new/different injury. States he came in because it was hurting him when he was trying to sleep. 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 Pt denies new/diff sob, fevers, chills. He denies abd pain. He states he has had mri's in past for the same pain and has never been told he has anything wrong with the right shoulder. He has had no prior surgery. Pain is worse with rotation of the arm, though he points to his right lateral chest wall as opposed to joint when asked about location. It is sharp, constant for weeks. Headache not new/different/sudden onset. REVIEW OF SYSTEMS: Constitutional: No fever, no chills. Eyes: no blurred vision ENT: No sore throat. Cardiovascular: above Respiratory: above Gastrointestinal: above Genitourinary: no dysuria Musculoskeletal: above Skin: No rashes. Neurological: above Remainder of the 14 system rev: Yes Allergies: Coded Allergies: naproxen (Verified Allergy, Severe, CHEST PAIN, RASH, 01/22/19) Penicillins (Verified Allergy, Mild, ITCHING, 01/22/19) Home Meds Active Scripts Tizanidine Hcl (TIZANIDINE HCL) 4 Mg Tablet, 2 MG PO BID PRN for HEADACHE, #30 TAB 0 Refills Prov:JAMEY VILLASENOR MD 01/15/19 Meloxicam (MELOXICAM) 7.5 Mg Tablet, 7.5 MG PO BID, #60 TAB 0 Refills Prov:JAMEY VILLASENOR MD 01/15/19 Ondansetron 4 Mg Odt (ONDANSETRON 4 MG ODT) 4 Mg Tab.rapdis, 4 MG PO Q6H PRN for NAUSEA/VOMITING, #20 TAB 0 Refills Prov:JAMEY VILLASENOR MD 01/14/19 Insulin Detemir 100 UN/ML PEN (Levemir Flextouch) 100 Unit/1 Ml Insuln.pen, 40 UNITS SUBQ BID, #2 BOX 0 Refills Prov:WILMER NGUYEN APRN TACK CLEANER-C 07/17/18 Insulin Lispro 100 Un/Ml Pen (HUMALOG 3 ML PEN) 100 Unit/1 Ml Insuln.pen, 20 UNIT SQ TID, #2 BOX 1 Refill Prov:KIKI CORMIER MD 04/02/18 Pantoprazole Sodium (PANTOPRAZOLE SODIUM) 40 Mg Tablet.dr, 1 TAB PO QDAY, #60 TAB.SR 3 Refills Prov:HERBERT FELIZ MD 02/26/18 Reported Medications Lisinopril (LISINOPRIL) 10 Mg Tablet, 10 MG PO QDAY, TAB 09/01/18 Cholecalciferol (Vitamin D3) (VITAMIN D3) 5,000 Unit Tablet, 5000 UNIT PO DAILY 01/29/18 Ferrous Sulfate (FERROUS SULFATE) 325 Mg Tablet, 325 MG PO DAILY 01/29/18 Acetaminophen (TYLENOL EXTRA STRENGTH) 500 Mg Tablet, 1 TAB PO TID PRN for PAIN, TAB 04/10/17 [place]-3 Fatty Acids/Fish Oil (FISH OIL 1,000 MG SOFTGEL) 1 Each Capsule, 1 EACH PO BID, CAPSULE 04/10/17 [place], Insulin Disposable (Bd Ultra-Fine Pen Needle) 1 Each Dis.needle, EACH 5XD, #100 04/10/17 Albuterol Sulfate 0.083% (ALBUTEROL SULFATE 0.083%) 2.5 Mg/3 Ml Vial.neb, 2.5 MG INH Q8H PRN for WHEEZING, INH 04/10/17 Allopurinol (ZYLOPRIM) 300 Mg Tablet, 1 TAB PO QDAY, TAB 04/10/17 Albuterol Sulfate (Proventil Hfa) 6.7 Gm Aer.w.adap, 2 PUFF INH Q4H PRN for WHEEZING, 0 Refills 09/07/11 Discontinued Scripts Hydrocodone Bit/Acetaminophen (HYDROCODON-ACETAMINOPHEN 5-325) 1 Each Tablet, 1 EACH PO Q4H PRN for PAIN, #12 TAB 0 Refills Prov:JAMEY VILLASENOR MD 11/23/18 Reviewed Nurses Notes: Yes Old Medical Records Reviewed: Yes Hx Smoking: Yes (1PPDX 30 YEARS- QUIT 2000) Smoking Status: Former Smoker Exposure to Second Hand Smoke?: No Hx Substance Use Disorder: No Hx Alcohol Use: No Constitutional Vital Sign - Last 24 Hours 01/22/19 00:27 Temp 98.1 Pulse 85 Resp 22 B/P (MAP) 179/90 Pulse Ox 86 O2 Delivery Room Air Physical Exam General Appearance: The patient is alert, has no immediate need for airway pr otection and no signs of toxicity. He does not have singultus (in contrast to nurse note) Eyes: Pupils equal and round no pallor or injection. ENT, Mouth: Mucous membranes are moist. Respiratory: There are no retractions, lungs are clear to auscultation. Cardiovascular: Regular rate and rhythm. Pt has ttp r lateral chest wall at origin of pectoralis m. He has ttp along inferior clavicle border, lateral edge. He does not appear to have ttp at r shoulder joint, biceps tendon, and has full passive range of motion, though with ttp at ac joint. Neurological: alert, oriented Skin: Warm and dry, no rashes. Musculoskeletal: Neck is supple non tender. DIFFERENTIAL DIAGNOSIS: After history and physical exam differential diagnosis was considered for septic arthritis, atypical presentation of pe, pneumothorax, acs, diaphragmatic irritation, fracture, dislocation, or other emergent etio logy. Medical Decision Making ED Course/Re-evaluation ED Course 73 y/o m with extensive medical history, known to me, presents with symptoms that are not new/different. He has ttp on exam of lateral pectoral m with guarding out of proportion of findings. While I considered multiple emergent etiologies, this presentation is not associated with new/different symptoms or findings consistent with emergent etiology. After my evaluation, very low likelihood of serious cause. Pt ambulates without difficulty on dc. Decision to Disposition Date: Jan 22, 2019 Decision to Disposition Time: 00:44 Depart Departure Latest Vital Signs Vital Signs Date Time Temp Pulse Resp B/P (MAP) Pulse Ox O2 Delivery O2 Flow Rate FiO2 01/22/19 00:27 98.1 85 22 179/90 86 Room Air Impression: Primary Impression: Shoulder pain Condition: Condition Unchanged Disposition: HOME OR SELF-CARE Patient Instructions: Shoulder Pain (ED) Additional Instructions: As we discussed, I recommend you ice 20 minutes at a time, every hour or two. You may use your sling for rest as needed, but make sure you range the shoulder as much as possible each day. Follow up with your primary doctor for further evaluation as necessary and referral to physical therapy. Return for new/different symptoms or any concerns. Problem Qualifiers Primary Impression: Shoulder pain Chronicity: chronic Laterality: right Qualified Codes: M25.511 - Pain in right shoulder; G89.29 - Other chronic pain FREDDY ROMERO MD Jan 22, 2019 00:27
== END 2019-01-22 00:54 | disposition home or self-care (01) ==
LOC: ER 00:37
DX: M25.511 Pain in right shoulder (principal); G89.29 Other chronic pain
CPT/HCPCS: 99281

== ENCOUNTER 2019-01-25 07:19 | Emergency (ER) | payer MEDICARE ==
[2016-04-21 13:01] VITALS: Wt 99.9 kg
[~2019-01-25 07:19] MED LIST changes: -ATOR40TA69; -LISI-353
[2019-01-25] MEDS ORDERED: ASPIRIN 81 MG CHEW PO ONE (07:20)
--- NOTE | 2019-01-25 07:20 | ER Report ---
History and Physical Time Seen By MD: 07:17 HPI/ROS CHIEF COMPLAINT: Chest pain HISTORY OF PRESENT ILLNESS: Patient is a 73-year-old male with extensive medical history who is brought in by ambulance for evaluation of chest pain that began around 6 AM this morning. He states that it is right sided sharp associated with headache and nausea. Patient denies any sweating. I reviewed the electronic medical record patient has been seen this will be his 9th ER visit to [facility] since October 20 of this year. Patient states that he does follow with primary care provider in and sees Kirsten Hwang. Last visit with her approximately one month ago and he is scheduled to see her on February 10. Patient states that his blood sugars have been running "high" and states that in the mid to upper 200s. Patient denies any fevers or chills. REVIEW OF SYSTEMS: Constitutional: No fever, no chills. Eyes: No discharge. ENT: No sore throat. Cardiovascular: Right-sided chest pain, sharp no palpitations Respiratory: No cough, no shortness of breath. Gastrointestinal: No abdominal pain, no vomiting. Nausea Genitourinary: No hematuria. Musculoskeletal: No back pain. Skin: No rashes. Neurological: Headache Allergies: Coded Allergies: naproxen (Verified Allergy, Severe, CHEST PAIN, RASH, 01/25/19) Penicillins (Verified Allergy, Mild, ITCHING, 01/25/19) Home Meds Active Scripts Ondansetron Hcl (ZOFRAN) 4 Mg Tablet, 4 MG PO Q8H for Nausea, #15 TAB 0 Refills Prov:FREDDY GATICA MD 01/25/19 Tizanidine Hcl (TIZANIDINE HCL) 4 Mg Tablet, 2 MG PO BID PRN for HEADACHE, #30 TAB 0 Refills Prov:JAMEY VILLASENOR MD 01/15/19 Meloxicam (MELOXICAM) 7.5 Mg Tablet, 7.5 MG PO BID, #60 TAB 0 Refills Prov:JAMEY VILLASENOR MD 01/15/19 Ondansetron 4 Mg Odt (ONDANSETRON 4 MG ODT) 4 Mg Tab.rapdis, 4 MG PO Q6H PRN for NAUSEA/VOMITING, #20 TAB 0 Refills Prov:JAMEY VILLASENOR MD 01/14/19 Insulin Detemir 100 UN/ML PEN (Levemir Flextouch) 100 Unit/1 Ml Insuln.pen, 40 UNITS SUBQ BID, #2 BOX 0 Refills Prov:WILMER NGUYEN APRN ASSOCIATE PROFESSOR OF COUNSELING-C 07/17/18 Insulin Lispro 100 Un/Ml Pen (HUMALOG 3 ML PEN) 100 Unit/1 Ml Insuln.pen, 20 UNIT SQ TID, #2 BOX 1 Refill Prov:KIKI CORMIER MD 04/02/18 Pantoprazole Sodium (PANTOPRAZOLE SODIUM) 40 Mg Tablet.dr, 1 TAB PO QDAY, #60 TAB.SR 3 Refills Prov:HERBERT FELIZ MD 02/26/18 Reported Medications Lisinopril/Hydrochlorothiazide (LISINOPRIL-HCTZ 20-12.5 MG TAB) 1 Each Tablet 01/25/19 Atorvastatin Calcium (ATORVASTATIN CALCIUM) 40 Mg Tablet 01/25/19 Cholecalciferol (Vitamin D3) (VITAMIN D3) 5,000 Unit Tablet, 5000 UNIT PO DAILY 01/29/18 Ferrous Sulfate (FERROUS SULFATE) 325 Mg Tablet, 325 MG PO DAILY 01/29/18 Acetaminophen (TYLENOL EXTRA STRENGTH) 500 Mg Tablet, 1 TAB PO TID PRN for PAIN, TAB 04/10/17 [place]-3 Fatty Acids/Fish Oil (FISH OIL 1,000 MG SOFTGEL) 1 Each Capsule, 1 EACH PO BID, CAPSULE 04/10/17 [place], Insulin Disposable (Bd Ultra-Fine Pen Needle) 1 Each Dis.needle, EACH 5XD, #100 04/10/17 Albuterol Sulfate 0.083% (ALBUTEROL SULFATE 0.083%) 2.5 Mg/3 Ml Vial.neb, 2.5 MG INH Q8H PRN for WHEEZING, INH 04/10/17 Allopurinol (ZYLOPRIM) 300 Mg Tablet, 1 TAB PO QDAY, TAB 04/10/17 Albuterol Sulfate (Proventil Hfa) 6.7 Gm Aer.w.adap, 2 PUFF INH Q4H PRN for WHEEZING, 0 Refills 09/07/11 Discontinued Reported Medications Lisinopril (LISINOPRIL) 10 Mg Tablet, 10 MG PO QDAY, TAB 09/01/18 Discontinued Scripts Hydrocodone Bit/Acetaminophen (HYDROCODON-ACETAMINOPHEN 5-325) 1 Each Tablet, 1 EACH PO Q4H PRN for PAIN, #12 TAB 0 Refills Prov:HAMILTONJAMEY Valdes MD 11/23/18 Past Medical/Surgical History Past medical history for coronary artery disease, diabetes, cardiac catheterization in 2015, chronic back pain, abdominal pain with Goodwin's esophagitis, hypertension, history of reactive airways disease, history of gout. Hx Smoking: Yes (1PPDX 30 YEARS- QUIT 2000) Smoking Status: Former Smoker Exposure to Second Hand Smoke?: No Hx Substance Use Disorder: No Hx Alcohol Use: No Constitutional Vital Sign - Last 24 Hours 01/25/19 01/25/19 01/25/19 01/25/19 07:21 07:30 07:30 07:45 Temp 97.9 Pulse 68 69 64 Resp 18 11 13 B/P (MAP) 124/59 126/52 (76) Pulse Ox 92 92 96 O2 Delivery Nasal Cannula O2 Flow Rate 2.0 01/25/19 01/25/19 01/25/19 01/25/19 08:00 08:15 08:30 08:45 Pulse 59 69 56 70 Resp 9 12 17 22 B/P (MAP) 109/47 (67) 110/61 (77) Pulse Ox 90 92 95 95 01/25/19 01/25/19 01/25/19 01/25/19 09:00 09:15 09:30 09:45 Pulse 56 57 56 63 Resp 25 6 18 14 B/P (MAP) 122/62 (82) 129/67 (87) Pulse Ox 94 96 95 98 01/25/19 01/25/19 01/25/19 01/25/19 10:00 10:15 10:30 10:45 Pulse 66 64 58 66 Resp 12 14 11 16 B/P (MAP) 146/76 (99) 139/90 (106) Pulse Ox 94 92 95 91 Physical Exam General/Constitutional: Patient is awake, alert, nontoxic and in no acute respiratory distress. Head: Normocephalic and atraumatic. Eyes: Conjunctival clear, sclera anicteric Ears:External canals are clear. Tympanic membranes are clear with normal landmarks and light reflex. Nares: No rhinorrhea or bleeding. Turbinates are pink and moist. Neck: Supple, no adenopathy. Cardiovascular: Heart is regular rate and rhythm without audible murmurs, rubs or gallops. Pulmonary: Lungs are clear to auscultation bilaterally. There are no wheezes, rales, or rhonchi. Chest rise is symmetrical Abdomen: Soft, nontender, no guarding or peritoneal signs. Extremities: No gross deformities, No peripheral cyanosis. Neuro: Alert and oriented X3, Skin: No rashes, skin is warm dry and well perfused. Medical Decision Making Data Points Result Diagram: 01/25/19 0710 01/25/19 0710 Laboratory Hematology Test 01/25/19 07:10 01/25/19 10:29 01/25/19 11:04 Red Blood Count 4.97 M/uL (4.00-5.60) Mean Corpuscular Volume 89.0 fL (80.0-96.0) Mean Corpuscular Hemoglobin 29.6 pg (26.0-33.0) Mean Corpuscular Hemoglobin Concent 33.2 g/dL (32.0-36.0) Red Cell Distribution Width 14.0 % (11.5-14.5) Mean Platelet Volume 8.6 fL (7.2-11.1) Neutrophils (%) (Auto) 76.2 % (39.4-72.5) Lymphocytes (%) (Auto) 13.4 % (17.6-49.6) Monocytes (%) (Auto) 8.3 % (4.1-12.4) Eosinophils (%) (Auto) 1.6 % (0.4-6.7) Basophils (%) (Auto) 0.5 % (0.3-1.4) Nucleated RBC Relative Count (auto) 0.0 /100WBC Neutrophils # (Auto) 8.3 K/uL (2.0-7.4) Lymphocytes # (Auto) 1.5 K/uL (1.3-3.6) Monocytes # (Auto) 0.9 K/uL (0.3-1.0) Eosinophils # (Auto) 0.2 K/uL (0.0-0.5) Basophils # (Auto) 0.1 K/uL (0.0-0.1) Nucleated RBC Absolute Count (auto) 0.00 K/uL Sodium Level 136 mmol/L (137-145) Potassium Level 4.7 mmol/L (3.5-5.0) Chloride Level 101 mmol/L (98-107) Carbon Dioxide Level 25 mmol/L (22-30) Blood Urea Nitrogen 18 mg/dl (9-21) Creatinine 0.80 mg/dl (0.66-1.25) Glomerular Filtration Rate Calc > 60.0 Random Glucose 321 mg/dl (75-110) Calcium Level 8.6 mg/dl (8.4-10.2) Total Bilirubin 0.5 mg/dl (0.2-1.3) Aspartate Amino Transf (AST/SGOT) 21 U/L (0-35) Alanine Aminotransferase (ALT/SGPT) 24 U/L (0-56) Alkaline Phosphatase 112 U/L (0-126) Total Protein 7.0 g/dl (6.3-8.2) Albumin 4.3 g/dl (3.5-5.0) Troponin I < 0.012 ng/ml Whole Blood Glucose 201 mg/DL (75-110) Chemistry Test 01/25/19 07:10 01/25/19 10:29 01/25/19 11:04 White Blood Count 10.9 k/uL (4.5-11.0) Red Blood Count 4.97 M/uL (4.00-5.60) Hemoglobin 14.7 g/dL (14.0-18.0) Hematocrit 44.3 % (42.0-52.0) Mean Corpuscular Volume 89.0 fL (80.0-96.0) Mean Corpuscular Hemoglobin 29.6 pg (26.0-33.0) Mean Corpuscular Hemoglobin Concent 33.2 g/dL (32.0-36.0) Red Cell Distribution Width 14.0 % (11.5-14.5) Platelet Count 337 K/uL (150-450) Mean Platelet Volume 8.6 fL (7.2-11.1) Neutrophils (%) (Auto) 76.2 % (39.4-72.5) Lymphocytes (%) (Auto) 13.4 % (17.6-49.6) Monocytes (%) (Auto) 8.3 % (4.1-12.4) Eosinophils (%) (Auto) 1.6 % (0.4-6.7) Basophils (%) (Auto) 0.5 % (0.3-1.4) Nucleated RBC Relative Count (auto) 0.0 /100WBC Neutrophils # (Auto) 8.3 K/uL (2.0-7.4) Lymphocytes # (Auto) 1.5 K/uL (1.3-3.6) Monocytes # (Auto) 0.9 K/uL (0.3-1.0) Eosinophils # (Auto) 0.2 K/uL (0.0-0.5) Basophils # (Auto) 0.1 K/uL (0.0-0.1) Nucleated RBC Absolute Count (auto) 0.00 K/uL Glomerular Filtration Rate Calc > 60.0 Calcium Level 8.6 mg/dl (8.4-10.2) Total Bilirubin 0.5 mg/dl (0.2-1.3) Aspartate Amino Transf (AST/SGOT) 21 U/L (0-35) Alanine Aminotransferase (ALT/SGPT) 24 U/L (0-56) Alkaline Phosphatase 112 U/L (0-126) Total Protein 7.0 g/dl (6.3-8.2) Albumin 4.3 g/dl (3.5-5.0) Troponin I < 0.012 ng/ml Whole Blood Glucose 201 mg/DL (75-110) EKG/Imaging EKG Interpretation EKG shows normal sinus rhythm with no significant ST segment or T-wave abnormalities. Monitor Interpretation: Normal Sinus Rhythm Imaging FACILITY: [facility] PATIENT NAME: Nomi Whiting : 1945 MR: [id number] V: [id number] EXAM DATE: ORDERING PHYSICIAN: FREDDY GATICA TECHNOLOGIST[place] [facility] [place] : 1945 Visit/Account:[id number] Date of Sevice: 01/25/2019 CHEST SINGLE AP Indication: Chest pain. Comparison: 01/08/2019 Findings: The lungs are clear. No pneumothorax or pleural effusion. Heart size is normal. Old healed left-sided rib fractures are seen at several contiguous levels. IMPRESSION: 1. No acute cardiopulmonary process. Report Dictated By: Jorge Alberto Mandujano at 01/25/2019 7:54 AM Report E-Signed By: Jorge Alberto Mandujano at 01/25/2019 7:57 AM WSN:[id number] ED Course/Re-evaluation ED Course 01/25/2019 7:39:02 am plan at this time will be cardiac workup with a delta troponin. Patient's symptoms began at 6 this morning. We will repeat a troponin at approximately 10:30. 01/25/2019 7:54:52 am blood sugar found to be 3 21 mg/dL. We will give 0.1 units per kilo bolus of IV insulin and 1 L normal saline and recheck blood sugar. 01/25/2019 11:06:57 am a troponin is negative blood sugar at 1 mg/dL. We'll discharge patient home. Decision to Disposition Date: Jan 25, 2019 Decision to Disposition Time: 11:06 Depart Departure Latest Vital Signs Vital Signs Date Time Temp Pulse Resp B/P (MAP) Pulse Ox O2 Delivery O2 Flow Rate FiO2 01/25/19 10:45 66 16 91 01/25/19 10:30 139/90 (106) 01/25/19 07:30 2.0 01/25/19 07:21 97.9 Nasal Cannula Impression: Primary Impression: Non-cardiac chest pain Additional Impression: Hyperglycemia Condition: Improved Disposition: HOME OR SELF-CARE New Scripts Ondansetron Hcl (ZOFRAN) 4 Mg Tablet 4 MG PO Q8H for Nausea, #15 TAB 0 Refills Prov: FREDDY GATICA MD 01/25/19 Patient Instructions: Diabetic Hyperglycemia (DC), Noncardiac Chest Pain (ED) Problem Qualifiers FREDDY GATICA MD Jan 25, 2019 07:20
[2019-01-25] MEDS ORDERED: EMS NS 0.9%(*) 1000 ML BAG 1,000 ML IV ONE (07:25)
--- NOTE | 2019-01-25 07:33 | EKG ---
FACILITY: [facility] PATIENT NAME: BRETT BRADLEY : [id number] MR: [id number] V: [id number] EXAM DATE: ORDERING PHYSICIAN: FREDDY GATICA TECHNOLOGIST: S[facility] Reason : Blood Pressure : / mmHG Vent. Rate : 067 BPM Atrial Rate : 067 BPM P-R Int : 162 ms QRS Dur : 080 ms QT Int : 448 ms P-R-T Axes : 017 062 059 degrees QTc Int : 473 ms Sinus rhythm No acute appearing findings Confirmed by YISSEL LINDSEY ([id number] on 01/25/2019 10:08:02 AM Referred By: Confirmed By:YISSEL LINDSEY
[2019-01-25] MEDS ORDERED: LISI-353 (07:35)
[2019-01-25] MEDS ORDERED: ATOR40TA69 (07:35)
[2019-01-25] MEDS ORDERED: ONDANSETRON 4 MG/2 ML VIAL IVP ONE (07:40)
[2019-01-25 07:42] LABS: PLATELET COUNT, AUTOMATED 337 K/uL (150-450)
[2019-01-25] MEDS ORDERED: NS(*) 0.9% 1000 ML BAG 1,000 ML IV ONE (07:55)
[2019-01-25] MEDS ORDERED: INSU HUM REG 100 U/ML(ER ONLY) 10 ML VIAL IV ONE (07:55)
--- NOTE | 2019-01-25 08:00 | RADIOLOGY IMAGING REPORT ---
FACILITY: [facility] PATIENT NAME: Nomi Whiting : 1945 MR: [id number] V: [id number] EXAM DATE: ORDERING PHYSICIAN: FREDDY GATICA TECHNOLOGIST: Location: [facility] Patient: Nomi Whiting : 1945 Visit/Account:[id number] Date of Sevice: 01/25/2019 CHEST SINGLE AP Indication: Chest pain. Comparison: 01/08/2019 Findings: The lungs are clear. No pneumothorax or pleural effusion. Heart size is normal. Old healed left-sided rib fractures are seen at several contiguous levels. IMPRESSION: 1. No acute cardiopulmonary process. Report Dictated By: Jorge Alberto Mandujano at 01/25/2019 7:54 AM Report E-Signed By: Jorge Alberto Mandujano at 01/25/2019 7:57 AM WSN:[id number]
[2019-01-25 10:30] VITALS: BP 139/90
[2019-01-25] MEDS ORDERED: ONDA4TAB97 PO (11:08)
== END 2019-01-25 11:19 | disposition home or self-care (01) ==
LOC: ER 07:24
DX: R07.89 Other chest pain (principal); E11.65 Type 2 diabetes mellitus with hyperglycemia
CPT/HCPCS: 36416; 71045; 82948; 84484; 85025; 93005; 96361; 96374; 96375; 99284; A9270; J2405; J7030; 82040; 82247; 82310; 82374; 82435; 82565; 82947; 84075; 84132; 84155; 84295; 84450; 84460; 84520; J1815

== ENCOUNTER → 2019-01-25 | Outpatient (CLI) | payer MEDICARE ==
[2016-04-21 13:01] VITALS: BMI 33.5
[~2019-01-25] MED LIST changes: +ATOR40TA69; +LISI-353
== END ==
LOC: AMB 06:55
PROVIDERS: ATTEND Nurse Practitioner
DX: R07.9 Chest pain, unspecified (principal)
CPT/HCPCS: A0425; A0427